=== PATIENT | male | born 1960 | race Caucasian/White ===

== ENCOUNTER → 2019-07-08 10:16 | Outpatient (CLI) | payer BC, SELFPAY ==
[2019-07-08 10:39] LABS: Basophils # 0.1 K/mm3 (0-0.2); Basophils % 1.1 % (0.1-2.0); Eosinophils # 0.3 K/mm3 (0.0-0.4); Hematocrit 46.3 % (42.0-52.0); Hemoglobin 15.2 g/dL (14.1-18.0); Lymphocytes # 1.3 K/mm3 (0.7-4.5); Lymphocytes % 27.6 % (10-50); Mean Corpuscular HGB Conc 32.8 g/dL (31.8-35.4); Mean Corpuscular Hemoglobin 31.1 pg (27.0-31.2); Mean Corpuscular Volume 94.6 fl (80-94); Mean Platelet Volume 8.7 fl (7.4-10.4); Monocytes # 0.4 K/mm3 (0.1-1.0); Monocytes % 8.4 % (1.7-9.3); Neutrophils # 2.6 K/mm3 (1.8-7.8); Neutrophils % 56.8 % (37.0-80.0); Platelet Count 153 K/mm3 (142-424); Red Blood Count 4.89 M/mm3 (4.60-6.20); Red Cell Distribution Width 13.1 % (11.5-17.5); White Blood Count 4.6 K/mm3 (4.8-10.8)
[2019-07-08 11:57] LABS: Anion Gap 11.8 mEq/L (5-15); Blood Urea Nitrogen 11 mg/dL (7-18); Calcium 8.9 mg/dL (8.5-10.1); Carbon Dioxide 27 mmol/L (21.0-32.0); Chloride 104 mmol/L (98-107); Creatinine,Serum 0.96 mg/dL (0.70-1.30); Estimated Glomerular Filt Rate 80 ml/min (>60); GFR (African American) 97 ML/MIN (>60); Glucose 97 mg/dL (74-106); Potassium 3.8 mmoL/L (3.5-5.1); Sodium 139 mmol/L (136-145)
== END ==
PROVIDERS: Visit Provider Surgery
DX: K42.9 Umbilical hernia without obstruction or gangrene (principal)
CPT/HCPCS: 36415; 80048; 85025

== ENCOUNTER → 2020-04-17 09:24 | Outpatient (CLI) | payer BC, SELFPAY ==
--- NOTE | 2020-04-17 09:32 | US_ITS ---
PROCEDURE: US TESTICULAR CLINICAL INDICATION: LT SCROTAL SWELLING Left testicular swelling COMPARISON: No exams were available for comparison FINDINGS: The right testicle has an unremarkable appearance measuring 5 x 2.5 x 3.2 cm. Blood flow is present. No obvious mass. There is a 2.8 x 1 cm cystic area in the superior to the upper pole of the right testicle consistent with a spermatocele.. A small cystic areas present in the lower pole of the testicle on the right. This measures 1 x 0.3 cm consistent with a cyst with a small internal septation The left testicle is 4.7 x 2.4 x 3.1 cm. Blood flow is present. Left-sided varicocele. IMPRESSION: 1. Right-sided spermatocele at 2.8 by 1 cm 2. Small septated right testicular cyst. Recommend follow-up to confirm stability in 3 months. 3. Left varicocele Dictated by: Donaldo Paris MD 04/17/2020 16:11 Donaldo Paris MD in [place] 04/17/2020 16:11
== END ==
PROVIDERS: PCP Internal Medicine; Visit Provider Internal Medicine
DX: N49.2 Inflammatory disorders of scrotum (principal)
CPT/HCPCS: 76870

== ENCOUNTER → 2020-07-08 07:44 | Outpatient (CLI) | payer BC, SELFPAY ==
--- NOTE | 2020-07-08 07:47 | CA_ITS ---
APPROVED REPORT EXAM: Comprehensive 2D, Doppler, and color-flow Echocardiogram Jewel Gauger: Sherry Blanco RVT Ht: 5 ft 11 in Wt: 224lbs BSA: 2.21 BP: 158/80 mmHg Indications: CAD,BRADYCARDIA,COPD,MURMUR,SMOKER,JANKI,GERD,HTN,HLD 2D Dimensions LVOT 1.85 cm (M/F) 1.5-2.5 M-Mode Dimensions RVDd 3.48 cm (0.9-2.6) LA Diam 4.74 cm (1.9-4.0) LVDd 5.11 cm (3.5-5.7) Ao Diam 3.04 cm (2.0-3.7) LVDs 4.32 cm (3.5-5.7) IVSd 0.92 cm (0.6-1.1) PWd 1.42 cm (0.6-1.1) EF (Teich) 32.50% FS 15.50% EDV (Teich) 124.40 mL ESV (Teich) 84.00 mL LV Diastology E Decel Time 313.00 (160-240 msec) E/A Ratio 0.7 MED E' 4.10 (< 7 cm/sec) E'/MED E' Ratio 18.10 (>14) LAT E' 6.20 (<10 cm/sec) E/LAT E' Ratio 11.97 (>14) Aortic Valve AO VTI 46.24 (18-25 cm) Mitral Valve MV E Max Vinicio. 74.00 (40-130 cm/s) MV A Velocity 113.00 (40-130 cm/s) E/A Ratio 0.66 MV Decel. Time 313.00 (160-240 ms) MV PHT 92.00 ms Pulmonary Valve PV Peak Velocity 93.00 (50-150 cm/s) Tricuspid Valve TR P. Velocity 265.00 cm/s RAP Estimate 10.00 mmHg RVSP 38.10 mmHg Left Ventricle Left atrium is mildly enlarged, left ventricle is normal size, mild concentric left ventricular hypertrophy, visually estimated ejection fraction 50%, there is marked hypokinesis involving the basal septum, and inferior basal wall. Grade 1 diastolic dysfunction seen with tissue Doppler evidence of raise left atrial pressure. Right Ventricle Right atrium and right ventricle are mildly enlarged with normal contractility. Aortic Valve Aortic valve is minimally thickened and calcified, leaflet continue to display mobility, there is no aortic stenosis or aortic insufficiency. Mitral Valve Mitral valve is grossly normal, there is mild mitral regurgitation. Tricuspid Valve Tricuspid valve is grossly normal, there is mild tricuspid regurgitation, tricuspid regurgitation jet velocity is inadequate for calculation of the right ventricular systolic pressure. Pulmonic Valve Pulmonic valve is poorly visualized. Great Vessels Aortic root is normal size. Pericardium No significant pericardial effusion noted. Conclusion 1. Mild biatrial enlargement, normal left ventricular size, mild concentric left ventricular hypertrophy, visually estimated ejection fraction 50% with segmental wall motion abnormality described above, grade 1 diastolic dysfunction seen with tissue Doppler evidence of raise left atrial pressure. 2. Mildly enlarged right ventricle with normal contractility. 3. Mild mitral and tricuspid regurgitation. 4. No significant pericardial effusion noted. Electronically signed by : Gray Jones, 07/09/2020 13:56:34
== END ==
PROVIDERS: PCP Internal Medicine; Visit Provider Urology
DX: I25.10 Atherosclerotic heart disease of native coronary artery without angina pectoris (principal); G35 Multiple sclerosis; I50.32 Chronic diastolic (congestive) heart failure; I11.0 Hypertensive heart disease with heart failure; E78.2 Mixed hyperlipidemia; F17.200 Nicotine dependence, unspecified, uncomplicated; Z95.5 Presence of coronary angioplasty implant and graft
CPT/HCPCS: 93306

== ENCOUNTER → 2021-01-18 07:46 | Outpatient (CLI) | payer BC, SELFPAY ==
--- NOTE | 2021-01-18 07:49 | CA_ITS ---
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 Indications: HTN, Known congenital single left kidney, MS Renal Artery Doppler Renal Aorta Ratio (R) 0.00 Origin (L) 217.0/ cm/sec Proximal (L) 338.0/ cm/sec Mid (L) 382.0/ cm/sec Distal (L) 438.2/ cm/sec Renal Aorta Ratio (L) 4.01 Segmental A. (L) / cm/sec RI: 0.66 Segmental A. Sup (L) 26.0/8.0 cm/sec Segmental A. Mid (L) 22.0/8.0 cm/sec Segmental A. 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 Hemodynamically significant stenosis of the left renal artery. Based on the renal aortic ratio there is evidence of a greater than 60% stenosis in the mid to distal left renal artery. Conclusion Hemodynamically significant stenosis of the left renal artery. Based on the renal aortic ratio there is evidence of a greater than 60% stenosis in the mid to distal left renal artery. 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 Suggest CTA of left renal artery Electronically signed by : Donaldo Paris MD 01/18/2021 17:44:43
== END ==
PROVIDERS: PCP Internal Medicine; Visit Provider Physician Assistant
DX: I25.10 Atherosclerotic heart disease of native coronary artery without angina pectoris (principal); I11.9 Hypertensive heart disease without heart failure; R00.1 Bradycardia, unspecified; G35 Multiple sclerosis; E78.2 Mixed hyperlipidemia; F17.200 Nicotine dependence, unspecified, uncomplicated; Z95.5 Presence of coronary angioplasty implant and graft
CPT/HCPCS: 93976

== ENCOUNTER → 2021-02-12 09:27 | Outpatient (CLI) | payer BC, SELFPAY ==
[2021-02-12 10:08] LABS: Basophils # 0.1 K/mm3 (0-0.2); Basophils % 1.1 % (0.1-2.0); Eosinophils # 0.2 K/mm3 (0.0-0.4); Eosinophils % 4.5 % (0.1-12.0); Hematocrit 48.1 % (42.0-52.0); Lymphocytes # 1.2 K/mm3 (0.7-4.5); Lymphocytes % 25.6 % (10-50); Mean Corpuscular HGB Conc 33.2 g/dL (31.8-35.4); Mean Corpuscular Hemoglobin 30.8 pg (27.0-31.2); Mean Corpuscular Volume 92.7 fl (80-94); Mean Platelet Volume 9.2 fl (7.4-10.4); Monocytes # 0.5 K/mm3 (0.1-1.0); Neutrophils # 2.7 K/mm3 (1.8-7.8); Neutrophils % 58.7 % (37.0-80.0); Platelet Count 156 K/mm3 (142-424); Red Blood Count 5.18 M/mm3 (4.60-6.20); Red Cell Distribution Width 13.9 % (11.5-17.5); White Blood Count 4.6 K/mm3 (4.8-10.8)
[2021-02-12 11:16] LABS: Alanine Aminotransferase 30 U/L (12-78); Albumin Level 4.1 g/dl (3.5-5.0); Alkaline Phosphatase 102 U/L (38-126); Anion Gap 13.4 mEq/L (5-15); Aspartate Amino Transferase 26 U/L (17-59); Bilirubin,Direct 0.4 mg/dl (0.0-0.4); Bilirubin,Total 0.4 mg/dl (0.2-1.3); Blood Urea Nitrogen 17 mg/dl (9-20); Calcium 9.1 mg/dl (8.4-10.2); Carbon Dioxide 24 mmol/L (22.0-30.0); Chloride 107 mmol/L (98-107); Chol/HDL Ratio 3.5 (1-3.5); Cholesterol 140 mg/dl (140-200); Estimated Glomerular Filt Rate 115 ml/min (>60); GFR (African American) 140 ML/MIN (>60); Glucose 96 mg/dl (74-100); HDL Cholesterol 40 mg/dl (40-60); Potassium 4.4 mmoL/L (3.5-5.1); Sodium 140 mmol/L (136-145); Total Protein,Serum 6.5 g/dl (6.3-8.2); Triglycerides 139 mg/dl (30-150); VLDL Cholesterol 28 mg/dL (0-40)
[2021-02-12 11:27] LABS: Direct LDL Cholesterol 77.19 mg/dL (100-129)
[2021-02-12 11:31] LABS: Free T4 (Free Thyroxine) 0.87 ng/dl (0.78-2.19)
[2021-02-12 11:46] LABS: Thyroid Stimulating Hormone 1.03 uIU/mL (0.465-4.68)
== END ==
PROVIDERS: Visit Provider Nurse Practitioner Family
DX: Z01.812 Encounter for preprocedural laboratory examination (principal); Z20.822 Contact with and (suspected) exposure to COVID-19; I25.10 Atherosclerotic heart disease of native coronary artery without angina pectoris; R00.1 Bradycardia, unspecified; I11.9 Hypertensive heart disease without heart failure; G35 Multiple sclerosis; E78.5 Hyperlipidemia, unspecified; F17.200 Nicotine dependence, unspecified, uncomplicated; Z95.5 Presence of coronary angioplasty implant and graft
CPT/HCPCS: 36415; 80048; 80061; 80076; 84439; 84443; 85025; U0003

== ENCOUNTER 2021-02-15 08:14 | Day surgery (SDC) | payer BC, SELFPAY ==
[2021-02-15] VITALS (18 sets, daily range): BP systolic 140–180; BP diastolic 70–96; PULSE 52–97; RESP 18–20; TEMP 36.6; O2SAT 94–100; BMI 30.5
--- NOTE | 2021-02-15 07:10 | IR_ITS ---
APPROVED REPORT Patient Location: Outpatient Food Manager: CARMEN Parrish RT (R) PROCEDURES Catheter placement in the left renal artery with left renal artery selective angiogram INDICATION Abnormal renal duplex, Renal artery stenosis Informed consent was obtained prior to the procedure. COMPLICATIONS NONE Estimated Blood Loss: LESS THAN 10 ML TECHNIQUE 1% lidocaine used to anesthetize the right femoral groin. The right femoral artery was accessed via the Seldinger technique. A 4 Malian sheath was placed in the right femoral artery. The JR4 catheter was used to intubate the 2 arteries supplying the left kidney. After performing diagnostic angiography the patient was transferred to the postop putting in stable condition for sheath removal ANGIOGRAPHIC RESULTS The left kidney has a dual arterial supply. Both renal arteries are large caliber widely patent and free of stenosis IMPRESSION Normal left renal arterial supply with no evidence of stenosis PLAN 1. Evaluation of nonrenovascular hypertension Electronically signed by : Gopal Ashley MD 02/15/2021 10:35:05
== END 2021-02-15 13:56 | disposition home or self-care (01) ==
LOC: CATHLAB 08:14
PROVIDERS: PCP Internal Medicine; Visit Provider Internal Medicine
DX: I25.10 Atherosclerotic heart disease of native coronary artery without angina pectoris (principal); I11.9 Hypertensive heart disease without heart failure; E78.2 Mixed hyperlipidemia; F17.210 Nicotine dependence, cigarettes, uncomplicated; I70.1 Atherosclerosis of renal artery; Z95.5 Presence of coronary angioplasty implant and graft; Z79.899 Other long term (current) drug therapy; Q60.0 Renal agenesis, unilateral; Z79.01 Long term (current) use of anticoagulants; J44.9 Chronic obstructive pulmonary disease, unspecified
CPT/HCPCS: 36251; 99152; C1725; C1769; J1644; Q9967

== ENCOUNTER 2021-03-05 13:14 | Emergency (ER) | payer BC, SELFPAY ==
[2021-03-05 13:49] VITALS: BP 146/77; PULSE 85; RESP 19; TEMP 36.9; O2SAT 98; BMI 31.5
[2021-03-05 14:29] VITALS: BP 146/77; PULSE 85; RESP 18; TEMP 36.9
--- NOTE | 2021-03-05 14:56 | HMH.EDUTC ---
[facility] Disposition Clinical Impression: Viral syndrome, Exposure to COVID-19 virus Disposition: Home, Self-Care Condition on Discharge: Good Instructions: DI for Viral Syndrome, DI for COVID-19 (Suspected or Confirmed ), Preventing the Spread of Coronavirus Discharge Instructions Additional Instructions: Drink plenty of fluids. Take tylenol or ibuprofen for pain or fever. Take the medications as directed. Follow up with your regular doctor. GO TO THE ER FOR ANY WORSENING SYMPTOMS Quarantine until you know the results of your covid-19 test. If it is positive, the health department should call you and give you further instructions about your length of Quarantine and other things. Notify your school or workplace of your results and follow their instructions regarding return to work/school. Prescriptions: Benzonatate [Tessalon Perle 100mg Cap] 100 mg PO TIDP PRN #30 cap PRN Reason: Cough Transmission Status: Received by [id number] Ondansetron [Zofran 4mg ODT] 4 mg PO DAILYP PRN #12 tab PRN Reason: Nausea Transmission Status: Received by [facility] Referrals: Neil Lai [Primary Care Provider] - Time of Disposition: 15:00 Medical Decision Making - Medical Records Medical records reviewed: No: I reviewed the patient's medical records. - Anthony Inquiry Pt receiving controlled substance: No Vital Signs: 03/05/21 13:49 03/05/21 14:29 Temperature 98.4 F 98.4 F Temperature Source Oral Pulse Rate 85 Pulse Rate [Left] 85 Respiratory Rate 19 18 Blood Pressure 146/77 H Blood Pressure [Right Arm] 146/77 H Blood Pressure Mean [Right Arm] 100 02 Sat by Pulse Oximetry 98 [facility] HPI - General Stated complaint: covid symptoms Time Seen by Provider: 03/05/21 14:56 Mode of Arrival: Ambulatory Source of Information: Patient Limitations: No Limitations Description of Symptoms (Recalled from Triage Doc. by RN): pt c/o body aches, fever hx, runny nose, wekness in his legs and a cough. HEENT Symptoms (Recalled from RN notes): Yes (runny nose) Resp Symptoms (Recalled from RN notes): Yes (cough) Skin Symptoms (Recalled from RN notes): No MS Symptoms (Recalled from RN notes): No Functional Status (Recalled from RN notes): weakness - History of Present Illness Provider Complaint: He states that he has felt bad and been very tired for the past 2 days. He has a scratchy sore throat, a dry cough, and he has had some nausea. He has been vaccinated against covid-19. He has been exposed to covid-19 one day last week. - Related Data Home Medications Medication Instructions Recorded Confirmed dimethyl fumarate 240 mg 240 mg PO BID 07/27/17 02/23/21 capsule,delayed release [id number] intramuscular 1 each IM DAILY 07/27/17 02/23/21 solifenacin 10 mg tablet 10 mg PO ONCE 07/27/17 02/23/21 vitamin B complex 1 tab PO ONCE 07/31/17 02/23/21 aspirin 81 mg tablet,delayed 81 mg PO DAILY tab 01/29/18 02/23/21 release cholecalciferol (vitamin D3) 25 1,000 unit PO DAILY cap 01/29/18 02/23/21 mcg (1,000 unit) capsule diphenhydramine HCl 25 mg capsule 25 mg PO QHS 01/29/18 02/23/21 methylphenidate HCl 10 mg tablet 10 mg PO BID 01/21/19 02/23/21 modafinil 200 mg tablet 200 mg PO BID tab 07/06/20 02/23/21 potassium chloride 20 mEq oral 20 meq PO BID packet 07/06/20 02/23/21 packet omeprazole 40 mg capsule,delayed 40 mg PO DAILY cap 01/11/21 02/23/21 release tamsulosin 0.4 mg capsule 0.4 mg PO BID cap 01/11/21 02/23/21 Amlodipine Besylate [Amlodipine 10 mg PO DAILY 02/15/21 02/23/21 10mg Tab] Losartan Potassium [Cozaar 100mg 100 mg PO DAILY 02/15/21 02/23/21 Tablets] hydroCHLOROthiazide [HCTZ 25mg See Rx Instructions .ROUTE .COMPLEX 02/15/21 02/23/21 tab] Previous Rx's Medication Instructions Recorded nitroglycerin 0.4 mg sublingual 0.4 mg SUBLINGUAL Q5M PRN #25 tab 01/21/19 tablet clopidogrel 75 mg tablet 75 mg PO DAILY #90 tab
--- NOTE | 2021-03-06 10:11 | PC.NURSE ---
informed patient that he was positive
== END 2021-03-05 15:14 | disposition home or self-care (01) ==
PROVIDERS: Emergency Provider Nurse Practitioner Family; PCP Internal Medicine
DX: U07.1 COVID-19 (principal); B34.9 Viral infection, unspecified; J44.9 Chronic obstructive pulmonary disease, unspecified; K21.9 Gastro-esophageal reflux disease without esophagitis; E78.5 Hyperlipidemia, unspecified; I10 Essential (primary) hypertension; F17.210 Nicotine dependence, cigarettes, uncomplicated; Z79.899 Other long term (current) drug therapy
CPT/HCPCS: 99202; C9803; G0463; U0003; U0005

== ENCOUNTER → 2021-03-09 14:14 | Outpatient (CLI) | payer BC, SELFPAY ==
[2021-03-09] VITALS (7 sets, daily range): BP systolic 118–173; BP diastolic 61–70; PULSE 56–64; RESP 18; TEMP 36.4–37.3; O2SAT 96–98
== END ==
PROVIDERS: PCP Internal Medicine; Visit Provider Internal Medicine
DX: U07.1 COVID-19 (principal)
CPT/HCPCS: 96365

== ENCOUNTER → 2021-07-05 12:36 | Outpatient (CLI) | payer BC, SELFPAY ==
[2021-07-05 12:54] LABS: Basophils # 0.1 K/mm3 (0-0.2); Basophils % 1.9 % (0.1-2.0); Eosinophils # 0.2 K/mm3 (0.0-0.4); Eosinophils % 3.6 % (0.1-12.0); Hematocrit 48.7 % (42.0-52.0); Hemoglobin 16.2 g/dL (14.1-18.0); Lymphocytes # 1.3 K/mm3 (0.7-4.5); Lymphocytes % 30.5 % (10-50); Mean Corpuscular HGB Conc 33.1 g/dL (31.8-35.4); Mean Corpuscular Hemoglobin 31.9 pg (27.0-31.2); Mean Corpuscular Volume 96.2 fl (80-94); Mean Platelet Volume 9.5 fl (7.4-10.4); Monocytes # 0.4 K/mm3 (0.1-1.0); Monocytes % 8.6 % (1.7-9.3); Neutrophils # 2.3 K/mm3 (1.8-7.8); Neutrophils % 55.3 % (37.0-80.0); Platelet Count 178 K/mm3 (142-424); Red Blood Count 5.07 M/mm3 (4.60-6.20); Red Cell Distribution Width 13.2 % (11.5-17.5); White Blood Count 4.2 K/mm3 (4.8-10.8)
[2021-07-05 13:42] LABS: Chloride 106 mmol/L (98-107)
[2021-07-05 13:43] LABS: Potassium 4.1 mmoL/L (3.5-5.1); Sodium 139 mmol/L (136-145)
[2021-07-05 13:45] LABS: Alanine Aminotransferase 27 U/L (12-78); Albumin Level 4.2 g/dl (3.5-5.0); Albumin/Globulin Ratio 1.7 (1.1-1.8); Alkaline Phosphatase 91 U/L (38-126); Anion Gap 11.1 mEq/L (5-15); Aspartate Amino Transferase 27 U/L (17-59); Bilirubin,Total 0.4 mg/dl (0.2-1.3); Blood Urea Nitrogen 12 mg/dl (9-20); Carbon Dioxide 26 mmol/L (22.0-30.0); Estimated Glomerular Filt Rate 86 ml/min (>60); GFR (African American) 104 ML/MIN (>60); Globulin 2.5 g/dL (1.3-3.2); Total Protein,Serum 6.7 g/dl (6.3-8.2)
[2021-07-05 13:46] LABS: Calcium 9.3 mg/dl (8.4-10.2); Chol/HDL Ratio 3.3 (1-3.5); Cholesterol 126 mg/dl (140-200); Glucose 92 mg/dl (74-100); HDL Cholesterol 38 mg/dl (40-60); Triglycerides 85 mg/dl (30-150); VLDL Cholesterol 17 mg/dL (0-40)
[2021-07-05 13:57] LABS: Direct LDL Cholesterol 72.48 mg/dL (100-129)
== END ==
PROVIDERS: Visit Provider Internal Medicine
DX: I10 Essential (primary) hypertension (principal); E78.5 Hyperlipidemia, unspecified; E53.8 Deficiency of other specified B group vitamins; G35 Multiple sclerosis
CPT/HCPCS: 80053; 80061; 85025

== ENCOUNTER → 2022-01-04 11:39 | Outpatient (CLI) | payer BC, SELFPAY ==
[2022-01-04 14:09] LABS: Basophils # 0.1 K/mm3 (0-0.2); Basophils % 1.9 % (0.1-2.0); Eosinophils # 0.2 K/mm3 (0.0-0.4); Eosinophils % 2.4 % (0.1-12.0); Hematocrit 45.9 % (42.0-52.0); Hemoglobin 14.8 g/dL (14.1-18.0); Lymphocytes # 1.1 K/mm3 (0.7-4.5); Lymphocytes % 16.5 % (10-50); Mean Corpuscular HGB Conc 32.3 g/dL (31.8-35.4); Mean Corpuscular Hemoglobin 31.3 pg (27.0-31.2); Mean Corpuscular Volume 96.9 fl (80-94); Mean Platelet Volume 9.9 fl (7.4-10.4); Monocytes # 0.5 K/mm3 (0.1-1.0); Neutrophils # 4.7 K/mm3 (1.8-7.8); Neutrophils % 71.3 % (37.0-80.0); Platelet Count 168 K/mm3 (142-424); Red Blood Count 4.74 M/mm3 (4.60-6.20); Red Cell Distribution Width 13.7 % (11.5-17.5); White Blood Count 6.6 K/mm3 (4.8-10.8)
[2022-01-04 14:34] LABS: Alanine Aminotransferase 23 U/L (12-78); Albumin Level 3.6 g/dl (3.5-5.0); Albumin/Globulin Ratio 1.5 (1.1-1.8); Alkaline Phosphatase 107 U/L (38-126); Aspartate Amino Transferase 21 U/L (17-59); Blood Urea Nitrogen 16 mg/dl (9-20); Carbon Dioxide 24 mmol/L (22.0-30.0); Chloride 108 mmol/L (98-107); Chol/HDL Ratio 3.3 (1-3.5); Cholesterol 110 mg/dl (140-200); Estimated Glomerular Filt Rate 99 ml/min (>60); GFR (African American) 119 ML/MIN (>60); Globulin 2.4 g/dL (1.3-3.2); Glucose 104 mg/dl (74-100); HDL Cholesterol 33 mg/dl (40-60); Sodium 139 mmol/L (136-145); Triglycerides 84 mg/dl (30-150); VLDL Cholesterol 17 mg/dL (0-40)
[2022-01-04 14:37] LABS: Bilirubin,Total < 0.1 mg/dl (0.2-1.3)
[2022-01-04 14:45] LABS: Direct LDL Cholesterol 65.66 mg/dL (100-129)
[2022-01-04 14:50] LABS: 25-OH Vitamin D, Total 58.1 ng/mL (30-100)
[2022-01-04 15:02] LABS: Prostate Specific Ag Screen 0.5 ng/ml (0.0-4.0)
[2022-01-04 15:25] LABS: Vitamin B12 > 1000 pg/mL (239-931)
== END ==
PROVIDERS: PCP Internal Medicine; Visit Provider Internal Medicine
DX: I10 Essential (primary) hypertension (principal); I25.2 Old myocardial infarction; E78.5 Hyperlipidemia, unspecified; D69.6 Thrombocytopenia, unspecified; G35 Multiple sclerosis; B35.1 Tinea unguium; Z12.5 Encounter for screening for malignant neoplasm of prostate
CPT/HCPCS: 80053; 80061; 82306; 82607; 85025; G0103

== ENCOUNTER → 2022-07-08 12:39 | Outpatient (CLI) | payer BC, SELFPAY ==
[2022-07-08 15:02] LABS: Basophils # 0.1 K/mm3 (0-0.2); Basophils % 1.3 % (0.1-2.0); Eosinophils # 0.2 K/mm3 (0.0-0.4); Eosinophils % 4.3 % (0.1-12.0); Hematocrit 46.3 % (42.0-52.0); Hemoglobin 15.6 g/dL (14.1-18.0); Lymphocytes # 1.4 K/mm3 (0.7-4.5); Lymphocytes % 30.2 % (10-50); Mean Corpuscular HGB Conc 33.7 g/dL (31.8-35.4); Mean Corpuscular Hemoglobin 31.1 pg (27.0-31.2); Mean Corpuscular Volume 92.5 fl (80-94); Mean Platelet Volume 10.1 fl (7.4-10.4); Monocytes # 0.4 K/mm3 (0.1-1.0); Monocytes % 9.2 % (1.7-9.3); Neutrophils # 2.6 K/mm3 (1.8-7.8); Platelet Count 198 K/mm3 (142-424); Red Blood Count 5.01 M/mm3 (4.60-6.20); Red Cell Distribution Width 13.3 % (11.5-17.5); White Blood Count 4.8 K/mm3 (4.8-10.8)
[2022-07-08 15:21] LABS: Alanine Aminotransferase 25 U/L (12-78); Albumin Level 4.1 g/dl (3.5-5.0); Albumin/Globulin Ratio 1.6 (1.1-1.8); Alkaline Phosphatase 100 U/L (38-126); Anion Gap 12.2 mEq/L (5-15); Aspartate Amino Transferase 26 U/L (17-59); Bilirubin,Total 0.3 mg/dl (0.2-1.3); Blood Urea Nitrogen 22 mg/dl (9-20); Calcium 9.4 mg/dl (8.4-10.2); Carbon Dioxide 25 mmol/L (22.0-30.0); Chloride 107 mmol/L (98-107); Estimated Glomerular Filt Rate 76 ml/min (>60); GFR (African American) 92 ML/MIN (>60); Globulin 2.5 g/dL (1.3-3.2); Glucose 87 mg/dl (74-100); HDL Cholesterol 34 mg/dl (40-60); Potassium 4.2 mmoL/L (3.5-5.1); Sodium 140 mmol/L (136-145); Total Protein,Serum 6.6 g/dl (6.3-8.2)
[2022-07-08 15:23] LABS: Chol/HDL Ratio 3.5 (1-3.5); Cholesterol 120 mg/dl (140-200); Triglycerides 137 mg/dl (30-150); VLDL Cholesterol 27 mg/dL (0-40)
[2022-07-08 15:32] LABS: Direct LDL Cholesterol 66.28 mg/dL (100-129)
[2022-07-08 16:15] LABS: Vitamin B12 > 1000 pg/mL (239-931)
== END ==
PROVIDERS: PCP Internal Medicine; Visit Provider Internal Medicine
DX: I25.10 Atherosclerotic heart disease of native coronary artery without angina pectoris (principal); I25.2 Old myocardial infarction; I10 Essential (primary) hypertension; E78.5 Hyperlipidemia, unspecified; E53.8 Deficiency of other specified B group vitamins; D69.6 Thrombocytopenia, unspecified; G35 Multiple sclerosis
CPT/HCPCS: 80053; 80061; 82607; 85025

== ENCOUNTER → 2023-01-06 13:15 | Outpatient (CLI) | payer BC, SELFPAY ==
[2023-01-06 14:19] LABS: Basophils % 0.8 % (0.1-2.0); Eosinophils # 0.1 K/mm3 (0.0-0.4); Hematocrit 46.5 % (42.0-52.0); Hemoglobin 15.1 g/dL (14.1-18.0); Lymphocytes % 22.1 % (10-50); Mean Corpuscular HGB Conc 32.5 g/dL (31.8-35.4); Mean Corpuscular Hemoglobin 30.1 pg (27.0-31.2); Mean Corpuscular Volume 92.6 fl (80-94); Mean Platelet Volume 9.9 fl (7.4-10.4); Monocytes # 0.4 K/mm3 (0.1-1.0); Monocytes % 8.5 % (1.7-9.3); Neutrophils # 3.1 K/mm3 (1.8-7.8); Neutrophils % 65.6 % (37.0-80.0); Platelet Count 174 K/mm3 (142-424); Red Blood Count 5.02 M/mm3 (4.60-6.20); Red Cell Distribution Width 13.6 % (11.5-17.5); White Blood Count 4.7 K/mm3 (4.8-10.8)
[2023-01-06 14:45] LABS: Alanine Aminotransferase 29 U/L (12-78); Albumin Level 4.1 g/dl (3.5-5.0); Albumin/Globulin Ratio 1.8 (1.1-1.8); Alkaline Phosphatase 86 U/L (38-126); Anion Gap 11.7 mEq/L (5-15); Aspartate Amino Transferase 27 U/L (17-59); Bilirubin,Total 0.4 mg/dl (0.2-1.3); Blood Urea Nitrogen 16 mg/dl (9-20); Calcium 9.2 mg/dl (8.4-10.2); Carbon Dioxide 24 mmol/L (22.0-30.0); Chloride 108 mmol/L (98-107); Chol/HDL Ratio 2.8 (1-3.5); Cholesterol 111 mg/dl (140-200); Estimated Glomerular Filt Rate 98 ml/min (>60); GFR (African American) 119 ML/MIN (>60); Globulin 2.3 g/dL (1.3-3.2); Glucose 85 mg/dl (74-100); HDL Cholesterol 39 mg/dl (40-60); Potassium 4.7 mmoL/L (3.5-5.1); Sodium 139 mmol/L (136-145); Total Protein,Serum 6.4 g/dl (6.3-8.2); Triglycerides 88 mg/dl (30-150); VLDL Cholesterol 18 mg/dL (0-40)
[2023-01-06 14:56] LABS: Direct LDL Cholesterol 58.82 mg/dL (100-129)
[2023-01-06 15:15] LABS: Prostate Specific Ag Screen 0.5 ng/ml (0.0-4.0)
[2023-01-06 15:35] LABS: Vitamin B12 981 pg/mL (239-931)
== END ==
PROVIDERS: PCP Internal Medicine; Visit Provider Internal Medicine
DX: I25.10 Atherosclerotic heart disease of native coronary artery without angina pectoris (principal); I25.2 Old myocardial infarction; I10 Essential (primary) hypertension; E78.5 Hyperlipidemia, unspecified; E53.8 Deficiency of other specified B group vitamins; Z12.5 Encounter for screening for malignant neoplasm of prostate
CPT/HCPCS: 80053; 80061; 82607; 85025; G0103

== ENCOUNTER 2023-07-17 12:29 | Outpatient (CLI) | payer BC, SELFPAY ==
[2023-07-17 14:51] LABS: Basophils % 0.8 % (0.1-2.0); Eosinophils # 0.2 K/mm3 (0.0-0.4); Eosinophils % 3.1 % (0.1-12.0); Hematocrit 46.6 % (42.0-52.0); Hemoglobin 15.9 g/dL (14.1-18.0); Lymphocytes # 1.2 K/mm3 (0.7-4.5); Lymphocytes % 22.6 % (10-50); Mean Corpuscular Hemoglobin 31.9 pg (27.0-31.2); Mean Corpuscular Volume 93.9 fl (80-94); Mean Platelet Volume 10.3 fl (7.4-10.4); Monocytes # 0.4 K/mm3 (0.1-1.0); Monocytes % 7.9 % (1.7-9.3); Neutrophils # 3.6 K/mm3 (1.8-7.8); Neutrophils % 65.7 % (37.0-80.0); Platelet Count 173 K/mm3 (142-424); Red Blood Count 4.97 M/mm3 (4.60-6.20); Red Cell Distribution Width 13.7 % (11.5-17.5); White Blood Count 5.5 K/mm3 (4.8-10.8)
[2023-07-17 16:25] LABS: Alanine Aminotransferase 26 U/L (12-78); Albumin Level 4.1 g/dl (3.5-5.0); Albumin/Globulin Ratio 1.6 (1.1-1.8); Alkaline Phosphatase 92 U/L (38-126); Aspartate Amino Transferase 23 U/L (17-59); Bilirubin,Total 0.5 mg/dl (0.2-1.3); Blood Urea Nitrogen 12 mg/dl (9-20); Calcium 8.9 mg/dl (8.4-10.2); Carbon Dioxide 27 mmol/L (22.0-30.0); Chloride 106 mmol/L (98-107); Chol/HDL Ratio 3.8 (1-3.5); Cholesterol 123 mg/dl (140-200); Estimated Glomerular Filt Rate 86 ml/min (>60); GFR (African American) 103 ML/MIN (>60); Globulin 2.5 g/dL (1.3-3.2); Glucose 88 mg/dl (74-100); HDL Cholesterol 32 mg/dl (40-60); Sodium 141 mmol/L (136-145); Total Protein,Serum 6.6 g/dl (6.3-8.2); Triglycerides 82 mg/dl (30-150); VLDL Cholesterol 16 mg/dL (0-40)
[2023-07-17 16:41] LABS: Direct LDL Cholesterol 78.43 mg/dL (100-129)
[2023-07-17 22:55] LABS: Vitamin B12 998 pg/mL (239-931)
== END 2023-07-17 23:59 ==
LOC: LAB.DROPOF 12:30
PROVIDERS: PCP Internal Medicine; Visit Provider Internal Medicine
DX: I25.10 Atherosclerotic heart disease of native coronary artery without angina pectoris (principal); I25.2 Old myocardial infarction; I10 Essential (primary) hypertension; E78.5 Hyperlipidemia, unspecified; E53.8 Deficiency of other specified B group vitamins; D69.6 Thrombocytopenia, unspecified; K21.9 Gastro-esophageal reflux disease without esophagitis; G35 Multiple sclerosis
CPT/HCPCS: 80053; 80061; 82607; 85025

== ENCOUNTER 2023-09-11 17:04 | Emergency (ER) | payer BC, SELFPAY ==
[2023-09-11 17:45] VITALS: BP 134/74; PULSE 70; RESP 18; TEMP 36.6; O2SAT 98; BMI 32.3
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
[2023-09-11 19:05] VITALS: BP 134/74; PULSE 70; RESP 18; TEMP 36.6; O2SAT 98
== END 2023-09-11 19:05 | disposition home or self-care (01) ==
PROVIDERS: Emergency Provider Nurse Practitioner Family; PCP Internal Medicine
DX: S20.212A Contusion of left front wall of thorax, initial encounter (principal); W55.22XA Struck by cow, initial encounter; F17.210 Nicotine dependence, cigarettes, uncomplicated
CPT/HCPCS: 71101; 99212; 99214; G0463

== ENCOUNTER 2023-09-13 11:16 | Outpatient (CLI) | payer BC, SELFPAY ==
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
--- NOTE | 2023-09-13 12:03 | ECG_ITS ---
APPROVED REPORT Exam: Resting ECG HR:79 bpm ECG Measurements Heart Rate 79 AXES WY 139 P 57 QRSd 146 QRS 219 QT 397 T -8 QTc 432 Conclusion SINUS RHYTHM RIGHT BUNDLE BRANCH BLOCK [120+ ms QRS DURATION, UPRIGHT V1, 40+ ms S IN I/aVL/V4/V5/V6] LEFT POSTERIOR FASCICULAR BLOCK [QRS AXIS > 109, INFERIOR Q] ABNORMAL ECG UNCONFIRMED REPORT Electronically signed by : Frank Michael MD 09/13/2023 21:09:58
[2023-09-13 12:06] LABS: Creatine Kinase 50 U/L (55-170)
[2023-09-13 12:19] LABS: CKMB Relative Index 1.4 U/L (0-4.0); Creatine Kinase MB 0.7 ng/ml (0.0-2.03)
[2023-09-13 12:26] LABS: Troponin I < 0.01 ng/ml (0.00-0.034)
== END 2023-09-13 23:59 ==
LOC: RAD 11:17
PROVIDERS: PCP Internal Medicine; Visit Provider Internal Medicine
DX: R07.89 Other chest pain (principal); R74.8 Abnormal levels of other serum enzymes; W55.22XA Struck by cow, initial encounter
CPT/HCPCS: 36415; 71046; 82550; 82553; 84484; 93005

== ENCOUNTER 2023-09-24 21:04 | Emergency (ER) | payer BC, SELFPAY ==
[2023-09-24 21:06] VITALS: BP 145/80; PULSE 74; RESP 18; TEMP 36.8; O2SAT 97; BMI 32.3
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
[2023-09-24] MEDS: METHOCARBAMOL 500MG TABLET 1000 MG PO (21:56)
[2023-09-24] MEDS: ACETAMINOPHEN 500MG TAB 1000 MG PO (21:56)
[2023-09-24] MEDS: IBUPROFEN 600 MG TABLET PO (21:56)
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
[2023-09-24] MEDS: LIDOCAINE 5% TRANSDERMAL PATCH 1 EACH TP (22:07)
[2023-09-24 23:29] VITALS: BP 140/78; PULSE 76; RESP 16; TEMP 36.8; O2SAT 98
== END 2023-09-24 23:31 | disposition home or self-care (01) ==
PROVIDERS: Emergency Provider Emergency Medicine; PCP Internal Medicine
DX: S22.42XA Multiple fractures of ribs, left side, initial encounter for closed fracture (principal); F17.210 Nicotine dependence, cigarettes, uncomplicated; W55.22XA Struck by cow, initial encounter
CPT/HCPCS: 71250; 99284

== ENCOUNTER 2024-01-15 14:14 | Outpatient (CLI) | payer BC, SELFPAY ==
[2024-01-15 12:45] LABS: Basophils # 0.1 K/mm3 (0-0.2); Basophils % 1.6 % (0.1-2.0); Eosinophils # 0.2 K/mm3 (0.0-0.4); Hematocrit 48.5 % (42.0-52.0); Lymphocytes # 1.3 K/mm3 (0.7-4.5); Lymphocytes % 23.4 % (10-50); Mean Corpuscular Hemoglobin 31.8 pg (27.0-31.2); Mean Corpuscular Volume 96.5 fl (80-94); Mean Platelet Volume 9.7 fl (7.4-10.4); Monocytes # 0.5 K/mm3 (0.1-1.0); Monocytes % 9.1 % (1.7-9.3); Neutrophils # 3.3 K/mm3 (1.8-7.8); Neutrophils % 61.8 % (37.0-80.0); Platelet Count 168 K/mm3 (142-424); Red Blood Count 5.03 M/mm3 (4.60-6.20); White Blood Count 5.3 K/mm3 (4.8-10.8)
[2024-01-15 13:12] LABS: Alanine Aminotransferase 39 U/L (12-78); Albumin/Globulin Ratio 1.7 (1.1-1.8); Alkaline Phosphatase 89 U/L (38-126); Anion Gap 10.1 mEq/L (5-15); Aspartate Amino Transferase 28 U/L (17-59); Bilirubin,Total 0.5 mg/dl (0.2-1.3); Blood Urea Nitrogen 14 mg/dl (9-20); Calcium 9.6 mg/dl (8.4-10.2); Carbon Dioxide 25 mmol/L (22.0-30.0); Chloride 109 mmol/L (98-107); Chol/HDL Ratio 3.1 (1-3.5); Cholesterol 115 mg/dl (140-200); Estimated Glomerular Filt Rate 114 ml/min (>60); GFR (African American) 138 ML/MIN (>60); Globulin 2.3 g/dL (1.3-3.2); Glucose 87 mg/dl (74-100); HDL Cholesterol 37 mg/dl (40-60); Potassium 4.1 mmoL/L (3.5-5.1); Sodium 140 mmol/L (136-145); Total Protein,Serum 6.3 g/dl (6.3-8.2); Triglycerides 90 mg/dl (30-150); VLDL Cholesterol 18 mg/dL (0-40)
[2024-01-15 13:23] LABS: Direct LDL Cholesterol 58.61 mg/dL (100-129)
[2024-01-15 13:44] LABS: Prostate Specific Ag Screen 0.6 ng/ml (0.0-4.0)
== END 2024-01-15 23:59 | disposition home or self-care (01) ==
LOC: LAB.DROPOF 14:15
PROVIDERS: PCP Internal Medicine; Visit Provider Internal Medicine
DX: I10 Essential (primary) hypertension (principal); E78.2 Mixed hyperlipidemia; Z12.5 Encounter for screening for malignant neoplasm of prostate; Z72.0 Tobacco use
CPT/HCPCS: 80053; 80061; 85025; G0103

== ENCOUNTER 2024-01-19 14:10 | Outpatient (CLI) | payer BC, SELFPAY ==
--- NOTE | 2024-01-19 14:10 | US_ITS ---
FINAL REPORT TECHNIQUE: Ultrasound examination soft tissues of the posterior neck CLINICAL HISTORY: Enlarging lesion back of neck ,cyst versus lipoma COMPARISON: None FINDINGS: SOFT TISSUE ULTRASOUND: The region of interest is in the posterior aspect of the neck. As indicated by the patient, in the region of interest there is a soft tissue nodule which measures 29 x 24 x 10 mm in size. This may represent an enlarged lymph node or other mass. CT or MRI through the region of interest is suggested for further evaluation if clinically indicated. IMPRESSION: Soft tissue nodule in the region of interest, 29 x 24 x 10 mm in size. This may represent an enlarged lymph node or other mass. CT or MRI through the region of interest is suggested for further evaluation if clinically indicated. Reviewed, Interpreted and Dictated by Will Watts MD Transcribed by Ro Pederson Authenticated and [facility]
== END 2024-01-19 23:59 | disposition home or self-care (01) ==
LOC: RAD 14:10
PROVIDERS: PCP Internal Medicine; Visit Provider Internal Medicine
DX: L98.9 Disorder of the skin and subcutaneous tissue, unspecified (principal)
CPT/HCPCS: 76536

== ENCOUNTER 2024-02-08 06:12 | Outpatient (CLI) | payer BC, SELFPAY ==
--- NOTE | 2024-02-08 06:20 | CT_ITS ---
FINAL REPORT TECHNIQUE: Thin section axial CT images with coronal and sagittal reformats were performed through the neck. This study was performed with techniques to keep radiation doses as low as reasonably achievable (ALARA). Individualized dose reduction techniques using automated exposure control or adjustment of mA and/or kV according to the patient''s size were employed. CLINICAL HISTORY: Lesion on back of right neck FINDINGS: No fracture is identified. There are moderate to severe degenerative changes with multilevel osteophytes. There is multilevel mild central canal stenosis, worst at C5-6. Multilevel neural foraminal narrowing is also identified. There is chronic soft tissue calcification posterior to the C5 spinous process measuring 9 mm. IMPRESSION: Chronic soft tissue calcification posterior to C5 spinous process. Multilevel degenerative disc disease. Reviewed, Interpreted and Dictated by Harpal Silva III, MD Transcribed by Malaika Thompson Authenticated and [facility]
== END 2024-02-08 23:59 | disposition home or self-care (01) ==
LOC: RAD 06:12
PROVIDERS: PCP Internal Medicine; Visit Provider Internal Medicine
DX: L98.9 Disorder of the skin and subcutaneous tissue, unspecified (principal)
CPT/HCPCS: 70490

== ENCOUNTER 2024-04-30 13:30 | Outpatient (CLI) | payer BC, SELFPAY ==
[2024-04-30 14:01] LABS: Basophils # 0.1 K/mm3 (0-0.2); Basophils % 0.9 % (0.1-2.0); Eosinophils # 0.2 K/mm3 (0.0-0.4); Eosinophils % 3.1 % (0.1-12.0); Hematocrit 46.6 % (42.0-52.0); Hemoglobin 16.3 g/dL (14.1-18.0); Lymphocytes # 1.3 K/mm3 (0.7-4.5); Mean Corpuscular Hemoglobin 31.6 pg (27.0-31.2); Mean Corpuscular Volume 90.1 fl (80-94); Mean Platelet Volume 9.5 fl (7.4-10.4); Monocytes # 0.4 K/mm3 (0.1-1.0); Monocytes % 7.1 % (1.7-9.3); Neutrophils # 3.5 K/mm3 (1.8-7.8); Neutrophils % 64.9 % (37.0-80.0); Platelet Count 166 K/mm3 (142-424); Red Blood Count 5.17 M/mm3 (4.60-6.20); Red Cell Distribution Width 13.6 % (11.5-17.5); White Blood Count 5.4 K/mm3 (4.8-10.8)
[2024-04-30 14:31] LABS: Chloride 109 mmol/L (98-107); Potassium 3.7 mmoL/L (3.5-5.1); Sodium 140 mmol/L (136-145)
[2024-04-30 14:34] LABS: Anion Gap 12.7 mEq/L (5-15); Blood Urea Nitrogen 13 mg/dl (9-20); Carbon Dioxide 22 mmol/L (22.0-30.0); Estimated Glomerular Filt Rate 85 ml/min (>60); GFR (African American) 103 ML/MIN (>60)
[2024-04-30 14:35] LABS: Calcium 9.2 mg/dl (8.4-10.2); Glucose 149 mg/dl (74-100)
== END 2024-04-30 23:59 | disposition home or self-care (01) ==
LOC: LAB 13:30
PROVIDERS: PCP Internal Medicine; Visit Provider Surgery
DX: D17.0 Benign lipomatous neoplasm of skin and subcutaneous tissue of head, face and neck (principal)
CPT/HCPCS: 36415; 80048; 85025

== ENCOUNTER 2024-05-01 11:36 | Outpatient (CLI) | payer BC, SELFPAY ==
--- NOTE | 2024-05-01 12:45 | ECG_ITS ---
APPROVED REPORT Exam: Resting ECG HR:66 bpm ECG Measurements Heart Rate 66 AXES NE 133 P 42 QRSd 142 QRS 91 QT 439 T 16 QTc 453 Conclusion SINUS RHYTHM WITH FREQUENT VENTRICULAR PREMATURE COMPLEXES POSSIBLE LEFT ATRIAL ENLARGEMENT [-0.1mV P-WAVE IN V1/V2] RIGHT BUNDLE BRANCH BLOCK [120+ ms QRS DURATION, UPRIGHT V1, 40+ ms S IN I/aVL/V4/V5/V6] ABNORMAL ECG UNCONFIRMED REPORT Electronically signed by : Frank Michael MD 05/05/2024 12:53:16
== END 2024-05-01 23:59 | disposition home or self-care (01) ==
LOC: PREOP 11:37
PROVIDERS: PCP Internal Medicine; Visit Provider Surgery
DX: I49.3 Ventricular premature depolarization (principal); I45.10 Unspecified right bundle-branch block; R94.31 Abnormal electrocardiogram [ECG] [EKG]
CPT/HCPCS: 93005

== ENCOUNTER 2024-05-06 06:07 | Day surgery (SDC) | payer BC, SELFPAY ==
[2024-05-01 13:32] VITALS: BMI 32.3
--- NOTE | 2024-05-02 12:03 | SUR.PREOP ---
Spoke w/ James William, verbalized agreement for pt to hold Plavix and proceed with surgery as scheduled. Patient notified and verbalized understanding.
[2024-05-06] VITALS (9 sets, daily range): BP systolic 105–139; BP diastolic 47–76; PULSE 44–77; RESP 16–20; TEMP 36.2–36.7; O2SAT 90–96
[2024-05-06] MEDS: 0.9 % SODIUM CHLORIDE 1000ML 1,000 ML 25 ML IV (06:47)
--- NOTE | 2024-05-06 06:54 | EXP.ANES.CKL ---
[facility] Disclaimer: The information contained in this section may have been updated after the patient was seen, as this information can be updated by other users. Medical History HLD (hyperlipidemia) HTN (hypertension) CAD (coronary artery disease) Multiple sclerosis Sinus bradycardia Surgical History History of foot surgery History of hernia repair History of coronary artery stent placement History of colonoscopy Family History Other Family history of heart disease Social History (Updated 05/06/24 @ 06:35 by Arlene Florez RN) Smoking Status: Current every day smoker tobacco type: cigarettes packs per day: 5 alcohol intake: never substance use type: denies use current occupational status: retired Travel in the last 8 weeks: None household members: spouse housing: house current occupation: [employer] caffeine: Yes [facility] Anesthesia Checklist Patient Identification Patient Identification: Arm Band and Verbal (Name & ) Structural Data Admitted From: Home Planned Operative Procedure/s: Excision of lipoma on neck Consent for Planned Operative Procedure(s) Verified: Yes Verified Documents: Surgical Consent and History and Physical NPO Status Verified Time NPO: 00:00 Chart Verification Results Verified: CBC, BMP, ECG and Chest Xray Additional verifications Patient : No Anesthesia Reactions: Yes (nausea / vomiting) Hx Blood Transfusions: No Blood Transfusion Reaction: No Cardiovascular Assessment Heart Sounds: S1 & S2 Pulse Rhythm: Irregular Peripheral Edema: No Airway Assessment Mallampati Score:: Class II C-Spine Mobility Assessed: Yes (FROM demonstrated) TMJ Mobility Assessed: Yes Dentition: Good Dentition (Nothing loose per pt.) Neurological Assessment Level of Consciousness: Awake, Alert, Appropriate and Follows Commands Hx Seizures: No Numbness or tingling in extremities: No Anesthesia Plan Anesthesia Risk discussed: Yes Anesthesia Plan: Verified ASA Class: III Anesthesia Type: General
[2024-05-06] MEDS: CEFAZOLIN SODIUM 2 GM in 0.9 % SODIUM CHLORIDE 100 ML IV (07:15)
[2024-05-06] MEDS: LIDOCAINE 1% 20ML MDV 20 ML (07:34)
[2024-05-06] MEDS: ROPIVACAINE 0.5% 30ML VIAL 150 MG (07:34)
--- NOTE | 2024-05-06 08:17 | EXP.OP.NOTE ---
Date of procedure: 05/06/24 Pre-op Diagnosis:: Posterior neck mass Post-op Diagnosis:: Same Procedure performed:: Excision of deep posterior neck mass (excisional length 4 cm) with intermediate complex closure Surgeon:: Harpal Alfaro MD CAN SOLDERER:: Sunny Solomon Anesthesia: local and LMA Estimated blood loss (mL): 7 Operative findings:: Probable DC subcutaneous lipoma Operative note:: Consent was obtained and patient was taken to the operating room. He was given preoperative intravenous antibiotics. In the operating room he was placed in a supine position. Anesthesia was induced via LMA. He was positioned in the left lateral position. The area was prepped and draped in the standard surgical fashion. He had a palpable subcutaneous nodule. Skin was marked with skin marker for planned transverse incision. Skin incision was made. Dissection was carried down through dermis and superficial subcutaneous tissues. There was some relatively well-circumscribed but somewhat lobulated adipose tissue likely consistent with lipoma. This was deep to the subcutaneous fascia which required incising with electrocautery. Using electrocautery with some blunt dissection and some use of scissor dissection the lesion was dissected free as a subcutaneous nodule and sent off as specimen. Wound was irrigated and hemostasis was achieved with electrocautery. Wound was probed digitally to assess for any residual lesion and there was no definite residual mass or nodule. Local anesthetic was infiltrated. Subcutaneous fascia was closed with several interrupted 2-0 Vicryl. Deep dermal tissues were closed with several interrupted 3-0 Vicryl. Skin was closed with 4-0 Monocryl running subcuticular fashion. Dermabond and dressing was applied. Condition: stable Disposition: PACU Complications:: None immediately apparent
--- NOTE | 2024-05-06 08:25 | P.PNANES_ITS ---
[facility] Anesthesia Record Part I Anesthesia Record I Intake, IV Amount: 500 Hydration: Adequate Estimated blood loss (mL): 10 Urine output (mL): 0 Blood Pressure: 139/75 SaO2: 93 Pulse Rate: 77 Airway Patency: Patent Respiratory Rate: 20 Temperature: 97.2 F Patient is:: Awake Stable to PACU at:: 08:20
--- NOTE | 2024-05-06 08:55 | SUR.PHASEI ---
0851- bedside report given to LUCAS Lofton. Pt in 0/10 pain, dressing CDI, VSS, and he is tolerating water w/o N/V. Bed locked in lowest position.
--- NOTE | 2024-05-08 10:25 | EXP.ANES.II ---
[facility] Anesthesia Record Part II Anesthesia Record Part II Discharge Time: 08:40 Destination: Surgical Day Care (OP Surgery) PACU nurse assessment reviewed?: Yes Patient Condition:: Good Anesthesia Complications:: None Swallowing reflex intact?: Yes Airway Patency: Patent Cyanosis?: No Blood Pressure: 126/67 SaO2: 95 Respiratory Rate: 18 Pulse Rate: 69 Temperature: 97.6 F Mental Status: Alert & Oriented Pain level:: 0 Nausea and/or vomitting:: None Intake, IV Amount: 0 Hydration: Adequate
[2024-05-08 10:26] VITALS: BP 126/67; PULSE 69; RESP 18; TEMP 36.4; O2SAT 95
== END 2024-05-06 09:40 | disposition home or self-care (01) ==
PROVIDERS: PCP Internal Medicine; Visit Provider Surgery
PROC: (CPT 11424; principal; 2024-05-06 07:30)
DX: R22.1 Localized swelling, mass and lump, neck (principal)
CPT/HCPCS: 11424; 13132; 96374; J0690; J1100; J1595; J2405; J3010; J7030

== ENCOUNTER 2024-09-27 09:53 | Outpatient (CLI) | payer BC, SELFPAY ==
[2024-09-27 10:42] LABS: Basophils # 0.1 K/mm3 (0-0.2); Eosinophils # 0.2 K/mm3 (0.0-0.4); Eosinophils % 4.1 % (0.1-12.0); Lymphocytes # 1.6 K/mm3 (0.7-4.5); Lymphocytes % 26.4 % (10-50); Mean Corpuscular HGB Conc 33.3 g/dL (31.8-35.4); Mean Corpuscular Hemoglobin 29.9 pg (27.0-31.2); Mean Corpuscular Volume 89.7 fl (80-94); Mean Platelet Volume 10.9 fl (7.4-10.4); Monocytes # 0.7 K/mm3 (0.1-1.0); Monocytes % 11.3 % (1.7-9.3); Neutrophils # 3.4 K/mm3 (1.8-7.8); Platelet Count 179 K/mm3 (142-424); Red Blood Count 5.35 M/mm3 (4.60-6.20); White Blood Count 5.9 K/mm3 (4.8-10.8)
[2024-09-27 11:06] LABS: Albumin Level 4.4 g/dl (3.5-5.0); Chloride 107 mmol/L (98-107); Potassium 4.1 mmoL/L (3.5-5.1); Sodium 141 mmol/L (136-145)
[2024-09-27 11:08] LABS: Alanine Aminotransferase 34 U/L (12-78); Anion Gap 12.1 mEq/L (5-15); Aspartate Amino Transferase 27 U/L (17-59); Blood Urea Nitrogen 13 mg/dl (9-20); Carbon Dioxide 26 mmol/L (22.0-30.0); Estimated Glomerular Filt Rate 98 ml/min (>60); GFR (African American) 118 ML/MIN (>60)
[2024-09-27 11:09] LABS: Albumin/Globulin Ratio 1.9 (1.1-1.8); Alkaline Phosphatase 87 U/L (38-126); Bilirubin,Total 0.7 mg/dl (0.2-1.3); Calcium 10.1 mg/dl (8.4-10.2); Globulin 2.3 g/dL (1.3-3.2); Glucose 87 mg/dl (74-100); Total Protein,Serum 6.7 g/dl (6.3-8.2)
== END 2024-09-27 23:59 | disposition home or self-care (01) ==
LOC: LAB 09:55
PROVIDERS: PCP Internal Medicine; Visit Provider Psychiatry & Neurology Neurology
DX: D84.9 Immunodeficiency, unspecified (principal)
CPT/HCPCS: 36415; 80053; 85025

== ENCOUNTER 2024-10-16 08:55 | Outpatient (CLI) | payer BC, SELFPAY ==
[2024-10-16 13:39] LABS: Basophils # 0.1 K/mm3 (0-0.2); Eosinophils # 0.2 Kmm3 (0.0-0.4); Eosinophils % 3.6 % (0.1-12.0); Hematocrit 46.7 % (42.0-52.0); Hemoglobin 15.9 g/dL (14.1-18.0); Lymphocytes # 1.3 K/mm3 (0.7-4.5); Lymphocytes % 23.3 % (10-50); Mean Corpuscular Hemoglobin 31.1 pg (27.0-31.2); Mean Corpuscular Volume 91.2 fl (80-94); Mean Platelet Volume 11.9 fl (7.4-10.4); Monocytes # 0.7 K/mm3 (0.1-1.0); Monocytes % 12.8 % (1.7-9.3); Neutrophils # 3.4 K/mm3 (1.8-7.8); Nucleated Red Blood Cells # 0 10^3/uL; Nucleated Red Blood Cells % 0 %; Platelet Count 160 K/mm3 (142-424); Red Blood Count 5.12 M/mm3 (4.60-6.20); Red Cell Distribution Width 13.2 % (11.5-17.5); Red Cell Distribution Width-SD 44.3 fL; White Blood Count 5.8 K/mm3 (4.8-10.8)
[2024-10-16 14:34] LABS: Alanine Aminotransferase 33 U/L (12-78); Albumin Level 4.2 g/dl (3.5-5.0); Albumin/Globulin Ratio 1.7 (1.1-1.8); Alkaline Phosphatase 84 U/L (38-126); Anion Gap 14.2 mEq/L (5-15); Aspartate Amino Transferase 28 U/L (17-59); Bilirubin,Total 0.7 mg/dl (0.2-1.3); Blood Urea Nitrogen 15 mg/dl (9-20); Calcium 9.3 mg/dl (8.4-10.2); Carbon Dioxide 25 mmol/L (22.0-30.0); Chloride 105 mmol/L (98-107); Chol/HDL Ratio 3.6 (1-3.5); Cholesterol 128 mg/dl (140-200); Estimated Glomerular Filt Rate 98 ml/min (>60); GFR (African American) 118 ML/MIN (>60); Globulin 2.5 g/dL (1.3-3.2); Glucose 72 mg/dl (74-100); HDL Cholesterol 36 mg/dl (40-60); Potassium 4.2 mmoL/L (3.5-5.1); Sodium 140 mmol/L (136-145); Total Protein,Serum 6.7 g/dl (6.3-8.2); Triglycerides 111 mg/dl (30-150); VLDL Cholesterol 22 mg/dL (0-40)
[2024-10-16 14:44] LABS: Direct LDL Cholesterol 66.21 mg/dL (100-129)
--- OUTSIDE RECORDS SUMMARY | 2024-10-17 11:11 | XMS_ITS | Data Portability ---
Author Organization [facility] HEL[facility] SESSER CLOSED Address [address] [facility] [address] [place] [address] Care Team Providers Care Driller And Broacher Name Role Phone NEIL GREEN Primary Care Provider [phone] Assessment Encounter Date Assessment Date Assessment LastModified by Organization Details LastModified Time 01/16/2023 01/16/2023 Assessment: 1. Stable Multiple Sclerosis, onset late 30's 2. Free of exacerbation 3. Disease controlled by Dimethyl Fumarate 240mg x1,BID 4. Takes supplemental Vitamin D3 5. Most recent BT CBC and CMP 07/12/22, --adequate lymphocyte count ALC 1300, other aspects of CBC normal --normal liver enzymes ALT and AST, other CMP normal with the exception of elevated glucose levels Plan: 1. Submit blood tests today CBC and CMP and vitamin D level 2. Continue current medications 3. No changes are needed 4. Follow up in 6 months, sooner if needed. [email or web address] Not available 01/16/2023 08:19:44 07/24/2023 07/24/2023 Assessment: 1. Mutliple Sclerosis 2. Free of exacerbation 3. Disease controlled by medication, Dimethyl Fumarate 4. Good tolerance of Dimethyl Fumarate 5. He has had recent screening blood tests with Dr. Neil Green, he will stop there today and will have results faxed to me 6. He continues vitamin D Plan: 1. No changes are needed 2. Continue current medications 3. Follow up in 6 months with me, sooner if needed. Not available 07/24/2023 08:37:57 01/22/2024 01/22/2024 Assessment: 1. Multiple Sclerosis, stable 2. Disease is controlled by dimethyl fumarate. 3. History of tysabri use, been away from this medication for 2-3 years. 4. Good safety on blood test performed in December 2023. 5. He continues vitamin D supplement Plan: 1. No changes are needed 2. I spoke of my intended mcc at the end of 2023. 3. I proposed MRI's but he states that he is very claustrophobic and would have to be heavily sedated to have MRI. 4. Follow up in 6 months prior to my mcc, sooner if needed. NOTE: PCP is Neil Green MD. [email or web address] Not available 01/22/2024 09:18:46 05/29/2024 05/29/2024 Assessment: 1. Multiple sclerosis 2. Free of exacerbation 3. Disease controlled by dimethyl fumarate 4. Chronic fatigue 5 symptoms controlled with modafinil 6 he is well-informed about the risk of modafinil use in patients with known coronary artery disease 7. He needs screening blood studies today for safety check on DMT Plan: 1. Submit blood test today for CBC CMP and vitamin D level 2. Continue current meds 3. Will prescribe modafinil using half tablet morning and half tablet afternoon 4. He is aware that I retire last patient visits end of June 30. Follow-up in [address] Deanna De in this department That appointment scheduled 11/25/24 His primary medical doctor is Neil Green MD in [place] [address] Not available 05/30/2024 08:06:50 Plan of Treatment Reminders Order Date Submit Date Provider Last Modified By Organization Details Last Modified Time Details Appointments NEUROLOGY RECHECK 2024 08:30A Tammy DE DO Not available Not available Not available RECHECK 2024 09:00A Tammy SPRAGUE MD Not available Not available Not available Lab urinalysi s panel, auto 2023 024 [facility], [address], [address], [place], [address], 02/07/2024 15:33:28 PSA, serum or plasma 2023 024 mir [facility], [address], [address], [place], [address], 02/07/2024 15:25:16 CBC w/ auto diff 2022 023 [facility], [address] [place] [address], [address], 01/16/2023 09:58:22 CMP, serum or plasma 2022 023 [facility], [address] [place] [address], [address], 01/16/2023 10:01:17 vitamin D, 25-hydrox y, total, serum 2022 023 [facility], [address] [place] [address], [address], 01/16/2023 10:09:54 Referral None recorded. Procedures None recorded. Surgeries None recorded. Imaging None recorded. Medication Orders modafinil 200 mg tablet 2023 024 [facility] 591, [address], [address], 05/30/2024 08:10:01 tamsulosi n 0.4 mg capsule 2023 024 [facility] 591, [address], [address], 02/07/2024 15:25:23 solifenac in 10 mg tablet 2023 024 [facility] 591, [address], [address], 02/07/2024 15:25:25 Patient TargetsNo targets recorded. Patient InstructionsNo instructions recorded. Reason for Referral None Reported. Results Created Date Observation Date Name Description Value Unit Range Abnormal Flag Note LastModifiedBy Organization Detail LastModifiedTime 01/17/2001/16/2023 COMPL ETE BLOOD COUNT white blood cells 5.3 10*3/ uL 3.8-10 .8 normal Not Available [facility] [address] [place] [address], [address], 01/16/2023 09:58:22 01/17/2001/16/2023 COMPL ETE BLOOD COUNT red blood cells 5.05 10*6/ uL 4.20-5 .80 normal Not Available [facility] [address] [place] [address], [address], 01/16/2023 09:58:22 01/17/20 23 01/16/2023 COMPL ETE BLOOD COUNT hemoglobin 15.4 g/dL 14.0-1 8.0 normal Not Available [facility] [address] [place] [address], [address], 01/16/2023 09:58:22 01/17/2001/16/2023 COMPL ETE BLOOD COUNT hematocrit 45.2 % 40.0-5 2.0 normal Not Available [facility] [address] [place] [address], [address], 01/16/2023 09:58:22 01/17/2001/16/2023 COMPL ETE BLOOD COUNT MCV 90 fL 80-100 normal Not Available [facility] [address] [place] [address], [address], 01/16/2023 09:58:22 01/17/2001/16/2023 COMPL ETE BLOOD COUNT MCH 31 pg 26-35 normal Not Available [facility] [address] [place] [address], [address], 01/16/2023 09:58:22 01/17/2001/16/2023 COMPL ETE BLOOD COUNT MCHC 34 g/dL 32-36 normal Not Available [facility] [address] [place] [address], [address], 01/16/2023 09:58:22 01/17/2001/16/2023 COMPL ETE BLOOD COUNT RDW 14.2 % 11.0-1 5.0 normal Not Available [facility] [address] [place] [address], [address], 01/16/2023 09:58:22 01/17/20 23 01/16/2023 COMPL ETE BLOOD COUNT MPV 9.5 fL 6.2-10 .5 normal Not Available [facility] [address] [place] [address], [address], 01/16/2023 09:58:22 01/17/20 23 01/16/2023 COMPL ETE BLOOD COUNT platelet count 134 10*3/ uL 130-40 0 normal Not Available [facility] [address] [place] [address], [address], 01/16/2023 09:58:22 01/17/2001/16/2023 COMPL ETE BLOOD COUNT neutrophil,a bsolute 3.2 10*3/ uL 1.6-8. 4 normal Not Available [facility] [address] [place] [address], [address], 01/16/2023 09:58:22 01/17/20 23 01/16/2023 COMPL ETE BLOOD COUNT lymphocyte,a bsolute 1.2 10*3/ uL 0.4-5. 1 normal Not Available [facility] [address] [place] [address], [address], 01/16/2023 09:58:22 01/17/2001/16/2023 COMPL ETE BLOOD COUNT monocyte,abs olute 0.7 10*3/ uL 0.0-1. 2 normal Not Available [facility] [address] [place] [address], [address], 01/16/2023 09:58:22 01/17/20 23 01/16/2023 COMPL ETE BLOOD COUNT eosinophil,a bsolute 0.2 10*3/ uL 0.0-0. 8 normal Not Available [facility] [address] [place] [address], [address], 01/16/2023 09:58:22 01/17/2001/16/2023 COMPL ETE BLOOD COUNT basophil,abs olute 0.0 10*3/ uL 0.0-0. 3 normal Not Available [facility] [address] [place] [address], [address], 01/16/2023 09:58:22 01/17/20 23 01/16/2023 COMPL ETE BLOOD COUNT % neutrophils 61.5 % 42.0-7 8.0 normal Not Available [facility] [address] [place] [address], [address], 01/16/2023 09:58:22 01/17/2001/16/2023 COMPL ETE BLOOD COUNT % lymphocytes 21.9 % 11.0-4 7.0 normal Not Available [facility] [address] [place] [address], [address], 01/16/2023 09:58:22 01/17/2001/16/2023 COMPL ETE BLOOD COUNT % monocytes 12.5 % 0.0-11 .0 high Not Available [facility] [address] [place] [address], [address], 01/16/2023 09:58:22 01/17/2001/16/2023 COMPL ETE BLOOD COUNT % eosinophils 3.2 % 0.0-7. 0 normal Not Available [facility] [address] [place] [address], [address], 01/16/2023 09:58:22 01/17/2001/16/2023 COMPL ETE BLOOD COUNT % basophils 0.9 % 0.0-3. 0 normal Not Available [facility] [address] [place] [address], [address], 01/16/2023 09:58:22 01/17/2001/16/2023 COMPL ETE BLOOD COUNT nucleated red cells 0.1 % 0.0-0. 9 normal Not Available [facility] [address] [place] [address], [address], 01/16/2023 09:58:22 01/17/20 23 01/16/2023 COMPL ETE BLOOD COUNT nucleated RBCs, absolute 0.00 10*3/ uL not estab. normal Not Available [facility] [address] [place] [address], [address], 01/16/2023 09:58:22 01/17/20 23 01/16/2023 COMP. METAB OLIC PANEL glucose 105 mg/dL 74-100 high Not Available [facility] [address] [place] [address], [address], 01/16/2023 10:01:17 01/17/20 23 01/16/2023 COMP. METAB OLIC PANEL blood urea nitrogen 12 mg/dL 6-20 normal Not Available [facility] [address] [place] [address], [address], 01/16/2023 10:01:17 01/17/20 23 01/16/2023 COMP. METAB OLIC PANEL creatinine 0.77 mg/dL 0.70-1 .28 normal Not Available [facility] [address] [place] [address], [address], 01/16/2023 10:01:17 01/17/20 23 01/16/2023 COMP. METAB OLIC PANEL BUN/creatini ne ratio 16 (calc ) 10-20 normal Not Available [facility] [address] [place] [address], [address], 01/16/2023 10:01:17 01/17/20 23 01/16/2023 COMP. METAB OLIC PANEL sodium 141 mmol/ L 136-14 5 normal Not Available [facility] [address] [place] [address], [address], 01/16/2023 10:01:17 01/17/20 23 01/16/2023 COMP. METAB OLIC PANEL potassium 3.8 mmol/ L 3.4-5. 0 normal Not Available [facility] [address] [place] [address], [address], 01/16/2023 10:01:17 01/17/20 23 01/16/2023 COMP. METAB OLIC PANEL chloride 107 mmol/ L 98-107 normal Not Available [facility] [address] [place] [address], [address], 01/16/2023 10:01:17 01/17/20 23 01/16/2023 COMP. METAB OLIC PANEL carbon dioxide 21 mmol/ L 22-31 low Not Available [facility] [address] [place] [address], [address], 01/16/2023 10:01:01/17/20 23 01/16/2023 COMP. METAB OLIC PANEL anion gap 13 (calc ) 7-25 normal Not Available [facility] [address] [place] [address], [address], 01/16/2023 10:01:01/17/2001/16/2023 COMP. METAB OLIC PANEL calcium 9.3 mg/dL 8.6-10 .2 normal Not Available [facility] [address] [place] [address], [address], 01/16/2023 10:01:01/17/2001/16/2023 COMP. METAB OLIC PANEL total protein 6.6 g/dL 6.4-8. 3 normal Not Available [facility] [address] [place] [address], [address], 01/16/2023 10:01:01/17/20 23 01/16/2023 COMP. METAB OLIC PANEL albumin 4.1 g/dL 3.5-5. 2 normal Not Available [facility] [address] [place] [address], [address], 01/16/2023 10:01:17 01/17/20 23 01/16/2023 COMP. METAB OLIC PANEL globulin 2.5 1.5-4. 5 normal Not Available [facility] [address] [place] [address], [address], 01/16/2023 10:01:17 01/17/20 23 01/16/2023 COMP. METAB OLIC PANEL albumin/glob ulin ratio 1.6 (calc ) 1.1-2. 5 normal Not Available [facility] [address] [place] [address], [address], 01/16/2023 10:01:17 01/17/20 23 01/16/2023 COMP. METAB OLIC PANEL bilirubin, total 0.6 mg/dL 0.1-1. 2 normal Not Available [facility] [address] [place] [address], [address], 01/16/2023 10:01:17 01/17/20 23 01/16/2023 COMP. METAB OLIC PANEL alkaline phosphatase 93 U/L 40-129 normal Not Available [facility] [address] [place] [address], [address], 01/16/2023 10:01:17 01/17/20 23 01/16/2023 COMP. METAB OLIC PANEL AST 17 U/L 0-40 normal Not Available [facility] [address] [place] [address], [address], 01/16/2023 10:01:17 01/17/20 23 01/16/2023 COMP. METAB OLIC PANEL ALT 25 U/L 0-41 normal Not Available [facility] [address] [place] [address], [address], 01/16/2023 10:01:17 01/17/20 23 01/16/2023 COMP. METAB OLIC PANEL GFR 101 >= 60 normal NOT E New calcu latio n for GFR (CKD- EPI 2020) is formu lated witho ut race adjus [facility] and Amkelli can Daltone ty of Nephr ology . This calcu latio n has not been valid ated in pregn ant women . For jordi barajas nts refer to https ://rodolfo de la cruz.gerber vu.o prince/pr michael juarez s/KDO QI/gf r_cal culat orPed Not Available [facility] [address] [place] [address], [address], 01/16/2023 10:01:17 01/17/20 23 01/16/2023 VITAM IN D 25-OH vitamin D 25-oh, total 76 NG/mL >=30 NG/mL normal Not Available [facility] [address] [place] [address], [address], 01/16/2023 10:09:54 02/07/20 24 02/07/2024 PSA, serum or plasm a PSA 0.48 NG/mL 0.0 - 4.0 Not Available [facility] [address], [place], [address], 02/07/2024 15:12:23 02/07/20 24 02/07/2024 urina lysis panel , auto Unknown Analyte Clean Catch Not Available [facility] [address], [place], [address], 02/07/2024 14:51:30 02/07/20 24 02/07/2024 urina lysis panel , auto Unknown Analyte Yellow Not Available [facility] [address], [place], [address], 02/07/2024 14:51:30 02/07/20 24 02/07/2024 urina lysis panel , auto Unknown Analyte Clear Not Available [facility] [address], [place], [address], 02/07/2024 14:51:30 02/07/20 24 02/07/2024 urina lysis panel , auto Unknown Analyte 1.015 Not Available [facility] [address], [place], [address], 02/07/2024 14:51:30 02/07/20 24 02/07/2024 urina lysis panel , auto Unknown Analyte 1.003- 1.035 Not Available [facility] [address], [place], [address], 02/07/2024 14:51:30 02/07/20 24 02/07/2024 urina lysis panel , auto Unknown Analyte 5.0 Not Available [facility] [address], [place], [address], 02/07/2024 14:51:30 02/07/20 24 02/07/2024 urina lysis panel , auto Unknown Analyte 5.0-8. 0 Not Available [facility] [address], [place], [address], 02/07/2024 14:51:30 02/07/20 24 02/07/2024 urina lysis panel , auto Unknown Analyte Negati ve Not Available [facility] [address], [place], [address], 02/07/2024 14:51:30 02/07/20 24 02/07/2024 urina lysis panel , auto Unknown Analyte Negati ve Not Available [facility] [address], [place], [address], 02/07/2024 14:51:30 02/07/20 24 02/07/2024 urina lysis panel , auto Unknown Analyte Negati ve Not Available [facility] [address], [place], [address], 02/07/2024 14:51:30 02/07/20 24 02/07/2024 urina lysis panel , auto Unknown Analyte Negati ve Not Available [facility] [address], [place], [address], 02/07/2024 14:51:30 02/07/20 24 02/07/2024 urina lysis panel , auto Unknown Analyte Negati ve Not Available [facility] [address], [place], [address], 02/07/2024 14:51:30 02/07/20 24 02/07/2024 urina lysis panel , auto Unknown Analyte Negati ve Not Available [facility] [address], [place], [address], 02/07/2024 14:51:30 02/07/2002/07/2024 urina lysis panel , auto Unknown Analyte Normal Not Available [facility] [address], [place], [address], 02/07/2024 14:51:30 02/07/20 24 02/07/2024 urina lysis panel , auto Unknown Analyte Normal Not Available [facility] [address], [place], [address], 02/07/2024 14:51:30 02/07/20 24 02/07/2024 urina lysis panel , auto Unknown Analyte Negati ve Not Available [facility] [address], [place], [address], 02/07/2024 14:51:30 02/07/20 24 02/07/2024 urina lysis panel , auto Unknown Analyte Negati ve Not Available [facility] [address], [place], [address], 02/07/2024 14:51:30 02/07/20 24 02/07/2024 urina lysis panel , auto Unknown Analyte 1 mg/dl Not Available [facility] [address], [place], [address], 02/07/2024 14:51:30 02/07/2002/07/2024 urina lysis panel , auto Unknown Analyte Normal 1 mg/dl Not Available [facility] [address], [place], [address], 02/07/2024 14:51:30 02/07/20 24 02/07/2024 urina lysis panel , auto Unknown Analyte Negati ve Not Available [facility] [address], [place], [address], 02/07/2024 14:51:30 02/07/20 24 02/07/2024 urina lysis panel , auto Unknown Analyte Negati ve Not Available [facility] [address], [place], [address], 02/07/2024 14:51:30 02/07/20 24 02/07/2024 urina lysis panel , auto Unknown Analyte Negati ve Not Available [facility] [address], [place], [address], 02/07/2024 14:51:30 02/07/20 24 02/07/2024 urina lysis panel , auto Unknown Analyte Negati ve Not Available [facility] [address], [place], [address], 02/07/2024 14:51:30 05/29/20 24 05/29/2024 COMPL ETE BLOOD COUNT white blood cells 5.8 10*3/ uL 3.8-10 .8 normal Not Available [facility] [address] [place] [address], [address], 05/29/2024 13:19:43 05/29/20 24 05/29/2024 COMPL ETE BLOOD COUNT red blood cells 5.05 10*6/ uL 4.20-5 .80 normal Not Available [facility] [address] [place] [address], [address], 05/29/2024 13:19:43 05/29/20 24 05/29/2024 COMPL ETE BLOOD COUNT hemoglobin 15.8 g/dL 14.0-1 8.0 normal Not Available [facility] [address] [place] [address], [address], 05/29/2024 13:19:43 05/29/20 24 05/29/2024 COMPL ETE BLOOD COUNT hematocrit 46.3 % 40.0-5 2.0 normal Not Available [facility] [address] [place] [address], [address], 05/29/2024 13:19:43 05/29/20 24 05/29/2024 COMPL ETE BLOOD COUNT MCV 92 fL 80-100 normal Not Available [facility] [address] [place] [address], [address], 05/29/2024 13:19:43 05/29/20 24 05/29/2024 COMPL ETE BLOOD COUNT MCH 31 pg 26-35 normal Not Available [facility] [address] [place] [address], [address], 05/29/2024 13:19:43 05/29/20 24 05/29/2024 COMPL ETE BLOOD COUNT MCHC 34 g/dL 32-36 normal Not Available [facility] [address] [place] [address], [address], 05/29/2024 13:19:43 05/29/20 24 05/29/2024 COMPL ETE BLOOD COUNT RDW 13.6 % 11.0-1 5.0 normal Not Available [facility] [address] [place] [address], [address], 05/29/2024 13:19:43 05/29/20 24 05/29/2024 COMPL ETE BLOOD COUNT MPV 9.4 fL 6.2-10 .5 normal Not Available [facility] [address] [place] [address], [address], 05/29/2024 13:19:43 05/29/20 24 05/29/2024 COMPL ETE BLOOD COUNT platelet count 166 10*3/ uL 150-40 0 normal Not Available [facility] [address] [place] [address], [address], 05/29/2024 13:19:43 05/29/20 24 05/29/2024 COMPL ETE BLOOD COUNT neutrophil,a bsolute 3.5 10*3/ uL 1.6-8. 4 normal Not Available [facility] [address] [place] [address], [address], 05/29/2024 13:19:43 05/29/20 05/29/2024 COMPL ETE BLOOD COUNT lymphocyte,a bsolute 1.3 10*3/ uL 0.4-5. 1 normal Not Available [facility] [address] [place] [address], [address], 05/29/2024 13:19:43 05/29/20 24 05/29/2024 COMPL ETE BLOOD COUNT monocyte,abs olute 0.7 10*3/ uL 0.0-1. 2 normal Not Available [facility] [address] [place] [address], [address], 05/29/2024 13:19:43 05/29/20 24 05/29/2024 COMPL ETE BLOOD COUNT eosinophil,a bsolute 0.2 10*3/ uL 0.0-0. 8 normal Not Available [facility] [address] [place] [place] [address], [phone], 05/29/2024 13:19:43 05/29/20 24 05/29/2024 COMPL ETE BLOOD COUNT basophil,abs olute 0.1 10*3/ uL 0.0-0. 3 normal Not Available [facility] [address] [place] [address], [address], 05/29/2024 13:19:43 05/29/20 24 05/29/2024 COMPL ETE BLOOD COUNT % neutrophils 61.0 % 42.0-7 8.0 normal Not Available [facility] [address] [place] [address], [address], 05/29/2024 13:19:43 05/29/20 24 05/29/2024 COMPL ETE BLOOD COUNT % lymphocytes 22.1 % 11.0-4 7.0 normal Not Available [facility] [address] [place] [address], [address], 05/29/2024 13:19:43 05/29/20 24 05/29/2024 COMPL ETE BLOOD COUNT % monocytes 12.3 % 0.0-11 .0 high Not Available [facility] [address] [place] [address], [phone], 05/29/2024 13:19:43 05/29/20 24 05/29/2024 COMPL ETE BLOOD COUNT % eosinophils 3.7 % 0.0-7. 0 normal Not Available [facility] [address] [place] [address], [address], 05/29/2024 13:19:43 05/29/20 24 05/29/2024 COMPL ETE BLOOD COUNT % basophils 0.9 % 0.0-3. 0 normal Not Available [facility] [address] [place] [address], [address], 05/29/2024 13:19:43 05/29/20 24 05/29/2024 COMPL ETE BLOOD COUNT nucleated red cells 0.0 % 0.0-0. 9 normal Not Available [facility] [address] [place] [address], [address], 05/29/2024 13:19:43 05/29/20 24 05/29/2024 COMPL ETE BLOOD COUNT nucleated RBCs, absolute 0.00 10*3/ uL not estab. normal Not Available [facility] [address] [place] [address], [address], 05/29/2024 13:19:43 05/29/20 24 05/29/2024 VITAM IN D 25-OH vitamin D 25-oh, total 57 NG/mL >=30 NG/mL normal Not Available [facility] [address] [place] [address], [address], 05/29/2024 13:53:05 05/29/20 24 05/29/2024 COMP. METAB OLIC PANEL glucose 93 mg/dL 74-100 normal Not Available [facility] [address] [place] [address], [address], 05/29/2024 14:23:10 05/29/20 24 05/29/2024 COMP. METAB OLIC PANEL blood urea nitrogen 12 mg/dL 6-20 normal Not Available [facility] [address] [place] [address], [address], 05/29/2024 14:23:10 05/29/20 24 05/29/2024 COMP. METAB OLIC PANEL creatinine 0.85 mg/dL 0.70-1 .28 normal Not Available [facility] [address] [place] [address], [address], 05/29/2024 14:23:10 05/29/20 24 05/29/2024 COMP. METAB OLIC PANEL BUN/creatini ne ratio 14 (calc ) 10-20 normal Not Available [facility] [address] [place] [address], [address], 05/29/2024 14:23:10 05/29/20 24 05/29/2024 COMP. METAB OLIC PANEL sodium 142 mmol/ L 136-14 5 normal Not Available [facility] [address] [place] [address], [address], 05/29/2024 14:23:10 05/29/20 24 05/29/2024 COMP. METAB OLIC PANEL potassium 4.0 mmol/ L 3.4-5. 0 normal Not Available [facility] [address] [place] [address], [address], 05/29/2024 14:23:10 05/29/20 24 05/29/2024 COMP. METAB OLIC PANEL chloride 108 mmol/ L 98-107 high Not Available [facility] [address] [place] [address], [address], 05/29/2024 14:23:10 05/29/20 24 05/29/2024 COMP. METAB OLIC PANEL carbon dioxide 22 mmol/ L 22-31 normal Not Available [facility] [address] [place] [address], [address], 05/29/2024 14:23:10 05/29/20 24 05/29/2024 COMP. METAB OLIC PANEL anion gap 12 (calc ) 7-25 normal Not Available [facility] [address] [place] [address], [address], 05/29/2024 14:23:10 05/29/20 24 05/29/2024 COMP. METAB OLIC PANEL calcium 9.6 mg/dL 8.6-10 .2 normal Not Available [facility] [address] [place] [address], [address], 05/29/2024 14:23:10 05/29/20 24 05/29/2024 COMP. METAB OLIC PANEL total protein 6.9 g/dL 6.4-8. 3 normal Not Available [facility] [address] [place] [address], [address], 05/29/2024 14:23:10 05/29/20 24 05/29/2024 COMP. METAB OLIC PANEL albumin 4.3 g/dL 3.5-5. 2 normal Not Available [facility] [address] [place] [address], [address], 05/29/2024 14:23:10 05/29/20 24 05/29/2024 COMP. METAB OLIC PANEL globulin 2.6 1.5-4. 5 normal Not Available [facility] [address] [place] [address], [address], 05/29/2024 14:23:10 05/29/20 24 05/29/2024 COMP. METAB OLIC PANEL albumin/glob ulin ratio 1.7 (calc ) 1.1-2. 5 normal Not Available [facility] [address] [place] [address], [address], 05/29/2024 14:23:10 05/29/20 24 05/29/2024 COMP. METAB OLIC PANEL bilirubin, total 0.5 mg/dL 0.1-1. 2 normal Not Available [facility] [address] [place] [address], [address], 05/29/2024 14:23:10 05/29/20 24 05/29/2024 COMP. METAB OLIC PANEL alkaline phosphatase 123 U/L 40-129 normal Not Available [facility] [address] [place], [address], 05/29/2024 14:23:10 05/29/20 24 05/29/2024 COMP. METAB OLIC PANEL AST 19 U/L 0-40 normal Not Available [facility] [address] [place], [address], 05/29/2024 14:23:10 05/29/20 24 05/29/2024 COMP. METAB OLIC PANEL ALT 27 U/L 0-41 normal Not Available [facility] [address] [place], [address], 05/29/2024 14:23:10 05/29/20 24 05/29/2024 COMP. METAB OLIC PANEL GFR 98 >= 60 normal NOT E New calcu latio n for GFR (CKD- EPI 2020) is formu lated witho ut race adjus tment facto rs at the recom menda tion of the Abdelrahman cook and Ayush mcgee [facility] . This calcu latio n has not been valid ated in pregn ant women . For pedia tric patie nts refer to https ://rodolfo vu.kavin rg/ryan juarez s/KDO QI/gf r_cal culat orPed Not Available [facility] [address] [place], [address], 05/29/2024 14:23:10 Result Notes None recorded. Problems Name Problem SNOMED Code Status Onset Date Resolution Date Notes Provider Name and Address Organization Details Recorded Time Multiple sclerosis 50281275 Active 2015 From Automated Load;Provi gail: Nirmala Taylor;Stat us: Active Not Available [facility] 2 18:23:07 Lack of energy 617036656 Active 2015 From Automated Load;Provi gail: Nirmala Taylor;Stat us: Active Not Available [facility] 2 18:23:07 Vitamin B deficienc y 01077975 Active 2015 From Automated Load;Provi gail: Nirmala Taylor;Stat us: Active Not Available [facility] 2 18:23:07 Problem Notes None recorded. Procedures Surgical History Date Name Laterality Status Provider Name and Address Organization Details Recorded Time 4 excision of lesion of skin completed Aura Garay [facility] 05/29/2024 11:11:53 8 Tympanogram completed PHILIP SCOTT, AUD [address] [place], [address], [facility] 06/21/2018 09:43:46 8 Audiogram completed PHILIP SCOTT AUD [address] [place], [address], [facility] 06/21/2018 09:43:43 8 Control Anterior Epistaxis completed [facility] 06/21/2018 08:32:38 8 Endoscopy Nasal; Biospy, Polypectomy or Debridement completed Lashell [facility] 06/21/2018 09:26:44 Hernia Repair completed Brody James [facility] 10/07/2016 09:20:22 insertion of arterial stent completed Simona Hanna [facility] 07/24/2023 08:10:56 colonoscopy completed Aura Garay [facility] 05/29/2024 11:12:29 Imaging Results None recorded. Procedure Notes None recorded. Medical Equipment None Reported. Allergies No known drug allergies Medications Name Sig Start Date Stop Date Status Note LastModified by Organization Details LastModified Time methylphe nidate 10 mg tablet Take one BID as directed 2022 active Not Available Not Available Not Avai lable Plavix 75 mg tablet Daily 05/07 completed Duration : 30 days;Jeffry quency: daily;Me dication Descript ion: clopidog rel; Dosage:1 ; Route:or al; refills: 0; Quantity :30 tablet Not Available Not Available Not Available modafinil 200 mg tablet Take 1/2 tablet by mouth twice daily 2023 active Not Available Not Available Not Avai lable tamsulosi n 0.4 mg capsule Take 1 capsule by mouth twice daily 2023 active Not Available Not Available Not Avai lable amlodipin e 10 mg tablet Take 1 tablet every day by oral route. active Not Available Not Available No t Available cyanocoba alvin (vit B-12) 1,000 mcg/mL injection solution Inject 1 mL every month by subcutan eous route. active Not Available Not Available No t Available aspirin 81 mg tablet Take 1 tablet every day by oral route. active no longer takes (05/29/20 24) Not Available Not Available Not Available hydrochlo rothiazid e 25 mg tablet Take 1 tablet every day by oral route. active Not Available Not Available No t Available mupirocin 2 % topical ointment Place topicall y in the nose bid x 10 days 12/23 completed Not Available Not Available Not Available losartan 100 mg tablet Take 1 tablet every day by oral route. active Not Available Not Available No t Available Adderall 10 mg tablet 1 pill each AM 07/12 completed Not Available Not Available Not Available Allergy (diphenhy dramine) 25 mg capsule Take 2 capsules every 4 hours by oral route. 05/07 completed Not Available Not Available Not Available Benicar HCT 40 mg-25 mg tablet Take 1 tablet every day by oral route. 05/07 completed Not Available Not Available Not Available rosuvasta tin 10 mg tablet Take 1 tablet every day by oral route. active Not Available Not Available No t Available Cialis 5 mg tablet 07/29 completed Not Available Not Available Not Available solifenac in 10 mg tablet Take 1 tablet by mouth once daily 2023 active Not Available Not Available Not Avai lable Vesicare 5 mg tablet TAKE ONE TABLET BY MOUTH ONCE DAILY 10/23 completed Not Available Not Available Not Available omeprazol e 05/31 completed Medicati on Descript ion: omeprazo le; refills: 0 Not Available Not Available Not Available clopidogr el active Not Available Not Available Not Available Benadryl 07/29 completed Not Available Not Available Not Available Klor-Con 07/29 completed Not Available Not Available Not Available Vitamin D3 active Not Available Not Available Not Available pantopraz ole active Not Available Not Available Not Available Benicar 04/17 completed Duration : 30 days;Med ication Descript ion: olmesart an; Route:or al; refills: 0; Quantity :30 tablet Not Available Not Available Not Available potassium Cl-calciu m phos-mag active Not Available Not Available Not Available Allergy Relief (cetirizi ne) active Not Available Not Available Not Available B12 active Not Available Not Availa ble Not Available dimethyl fumarate 240 mg capsule,d elayed release TAKE 1 CAPSULE TWICE A DAY 2023 active Not Available Not Available Not Avai lable Prostate Control 07/29 completed Not Available Not Available Not Available Vitals Date Recorded Body height Body mass index (BMI) Body weight Systolic blood pressure Diastolic blood pressure Provider Name and Address Organization Details Last Updated DateTime 01/16/2023 180.34 cm 32 kg/m2 386111.0 5 g 126 mm[Hg] 72 mm[Hg] Isidro Aguilar [facility] 3 07:58:21 Date Recorded Body height Body mass index (BMI) Body weight Heart rate Oxygen saturation Oxygen saturation in Arterial blood by Pulse oximetry Systolic blood pressure Diastolic blood pressure Provider Name and Address Organization Details Last Updated DateTime 4 180.34 cm 32.4 kg/m2 075270. 53 g 62 /min 96 % 96 % 138 mm[Hg] 84 mm[Hg] Simona Jacques [facility] 4 08:12:22 Date Recorded Body height Body mass index (BMI) Body weight Heart rate Oxygen saturation Oxygen saturation in Arterial blood by Pulse oximetry Systolic blood pressure Diastolic blood pressure Provider Name and Address Organization Details Last Updated DateTime 4 180.34 cm 32.3 kg/m2 488963. 94 g 70 /min 97 % 97 % 130 mm[Hg] 76 mm[Hg] Simona Jacques [facility] 4 08:49:10 Date Recorded Body height Body mass index (BMI) Body weight Provider Name and Address Organization Details Last Updated DateTime 02/07/2024 180.34 cm 32.1 kg/m2 155609.25 g Lissa Fisher [facility] 02/07/2024 14:52:40 Date Recorded Body height Body mass index (BMI) Body weight Heart rate Oxygen saturation Oxygen saturation in Arterial blood by Pulse oximetry Systolic blood pressure Diastolic blood pressure Provider Name and Address Organization Details Last Updated DateTime 4 180.34 cm 32.3 kg/m2 188234. 24 g 75 /min 96 % 96 % 126 mm[Hg] 70 mm[Hg] Aura Myeshaleslee [facility] 4 11:13:59 Social History Question Answer Notes LastModified by Organizat ion Details LastModified Time Tobacco Smoking Status Current Some Day [email or web address] 08:47:33 What Is Your Level Of Alcohol Consumption? Occasional [email or web address] Information not available 10/07/2016 What Is Your Level Of Caffeine Consumption? Moderate [email or web address] Information not available 10/07/2016 How Much Tobacco Do You Chew? None Information not available 05/27/2019 Which Illicit Or Recreational Drugs Have You Used? None Information not available 05/27/2019 Do You Or Have You Ever Used E-cigarettes Or Vape? Never Used Electronic Cigarettes Information not available 05/27/2019 What Is Your Occupation? [employer] Information not available 10/07/2016 Live Alone Or With Others? With Others Information not available 05/27/2019 Marital Status Informatio n not available 10/07/2016 What Was The Date Of Your Most Recent Tobacco Screening? 02/07/2024 [email or web address] Information not available 02/07/2024 At What Age Did You Start Smoking Tobacco? 22 Information not available 07/24/2023 Do You Or Have You Ever Used Smokeless Tobacco? Never Used Smokeless Tobacco Information not available 05/27/2019 How Much Tobacco Do You Smoke? 2 PPW Information not available 07/24/2023 On What Date Was Tobacco Cessation Counseling Provided? 02/09/2022 [email or web address] Information not available 02/09/2022 Sex: Unknown Functional Status None recorded. Mental Status None recorded. Family History Relationship Description Onset Age of this Age Resolved Age Notes LastModified by Organization Details LastModified Time Brother Diabetes mellitus [email or web address] Not available 2016 09:18:54 Brother Asthma [email or web address] Not available 05/07/2018 09:39:20 Sister Diabetes mellitus [email or web address] Not available 2016 09:18:54 Unspecified Relation Acute myocardial infarction [email or web address] Not available 10/07 09:19:04 Unspecified Relation Family history of stroke [email or web address] Not available 2016 09:19:31 Father Heart disease [email or web address] Not available 2016 09:19:14 Father Hypertensive disorder [email or web address] Not available 2016 09:19:22 Medical History Condition Response Anesthesia Complications N Diabetes N Bleeding Disorder Y Cancer N Reflux/GERD Y Sleep Apnea Y High Cholesterol Y Hypertension Y Immunizations Vaccine Type Date Status Note Provider Nam e and Address Organization Details Recorded Time Pneumococcal Conjugate, unspecified formulation 5 completed Not Available [facility] 05/11/2022 18:23:07 influenza, unspecified formulation 6 completed Not Available [facility] 05/11/2022 18:23:07 Influenza, split virus, quadrivalent, preservative 7 completed Not Available [facility] 05/11/2022 18:23:07 influenza, unspecified formulation 8 completed Not Available [facility] 05/11/2022 18:23:07 Influenza, split virus, quadrivalent, preservative 9 completed Not Available [facility] 05/11/2022 18:23:07 Influenza, split virus, quadrivalent, preservative 0 completed Not Available [facility] 05/11/2022 18:23:07 SARS-COV-2 (COVID-19) vaccine, UNSPECIFIED 1 completed Lissa Fisher [facility] 02/07/2024 14:52:43 Past Encounters Encounter ID Performer Location Encounter Start Date Encounter Closed Date Diagnosis/Indication Diagnosis SNOMED-CT Code Diagnosis ICD10 Code Diagnosis Note [id number] NIRMALA TAYLOR MD [facility] [address] [place] [address] 04/17/2017 10:47:46 04/17/2017 12:09:40 Multiple sclerosis 44987018 G35 Lack of energy 848569251 R53.83 Long-term drug therapy 098682275 Z79.593 [id number] NIRMALA TAYLOR MD [facility] [address] [place] [address] 10/23/2017 08:55:22 10/23/2017 09:38:03 Multiple sclerosis 56816792 G35 Long-term drug therapy 906229992 Z79.899 Coronary atherosclerosis 028352983 I25.10 Stented co ronary artery 588702919 Z95.5 Intentiona l weight loss 815360771 R63.8 Ex-smoker 2430286 Z87.89 1 Foot pain 74477508 M79.6 72 M79.727 [id number] NIRMALA TAYLOR MD [facility] [address] [place] [address] 04/23/2018 08:59:17 04/23/2018 09:48:23 Multiple sclerosis 84454059 G35 Long-term drug therapy 683324376 Z79.899 Fatigue 03832039 R53.83 Anterior epistaxis 89710 4002 R04.0 [id number] MD [address] [place] [address] 05/07/2018 09:17:47 05/07/2018 13:51:30 Anterior epistaxis 067016586 R04.0 [id number] NIRMALA TAYLOR MD [facility] [address] [place] [id number] 05/14/2018 08:19:45 05/14/2018 09:15:00 Multiple sclerosis 74301924 G35 Lack of energy 424611962 R53.83 Vitamin B deficiency 479 13431 E53.9 Long-term drug therapy 300383765 Z79.899 Chronic fa tigue syndrome 67500915 R53.82 Vitamin D deficiency 347 30377 E55.9 [id number] MD [address]ON [address] [place] [address] 06/21/2018 08:09:55 06/21/2018 09:28:03 Anterior epistaxis 673508682 R04.0 Noise-marie ana hearing loss 37153151 H83.3X9 Asymmetric al sensorineural hearing loss 563493415 H90.5 [id number] YASHIRA LYNN [place] [facility] [address] [place] [address] 06/21/2018 08:57:34 06/21/2018 10:04:42 Dysfunction of eustachian tube 73748038 H69.92 Sensorineu ral hearing loss of bilateral ears 906917969 H90.3 L>R Tinnitus of left ear 854 9449329 106 H93.12 [id number] YASHIRA LYNN [facility] [address] [place] [address] 07/09/2018 09:07:13 07/09/2018 09:36:37 [id number] NIRMALA TAYLOR MD [facility] [address] [place] [address] 07/16/2018 08:11:47 07/16/2018 08:56:46 Multiple sclerosis 17369611 G35 Chronic fa tigue syndrome 87349203 R53.82 Long-term drug therapy 744731290 Z79.899 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 030320411 H54.60 Vitamin D deficiency 347 32976 E55.9 [id number] NIRMALA TAYLOR MD [facility] [address] [place] [address] 09/10/2018 08:13:41 09/10/2018 09:24:19 Multiple sclerosis 99998536 G35 Long-term drug therapy 325859685 Z79.899 Vitamin D deficiency 347 00068 E55.9 Lack of energy 499507390 R53.83 [id number] NIRMALA TAYLOR MD NEUROLOGY [address] [place] [address] 05/27/2019 08:25:41 05/27/2019 09:33:52 Multiple sclerosis 09119199 G35 Lack of energy 746141113 R53.83 Vitamin B deficiency 479 35999 E53.9 [id number] [place] [address] [place] [address] 12/24/2019 14:14:25 12/24/2019 15:19:31 Multiple sclerosis 95266046 G35 Lack of energy 279239939 R53.83 Vitamin B deficiency 479 25832 E53.9 [id number] MELINA SPRAGUE MD [facility] [address] [place] [address] 01/24/2020 13:52:33 01/24/2020 14:56:48 Neurogenic dysfunction of urinary bladder 515254717 N31.9 continue generic Vesicare 10 mg Benign pro static hyperplasia with outflow obstruction 907822958 N40.1 continue tamsulosin follow-up 1 year [id number] NIRMALA TAYLOR MD NEUROLOGY [place] [address] 06/08/2020 07:51:56 06/08/2020 09:01:04 Multiple sclerosis 64933404 G35 Lack of energy 872071077 R53.83 Vitamin B deficiency 479 15173 E53.9 [id number] MD [facility] [address] [place] [address] 07/29/2020 13:49:39 07/29/2020 14:36:58 Groin mass 115275713 R19.00 after discussion we have started actually with a CT scan and try to determine where this is a hernia or additional masseffect . We will get an abdomen and pelvis CT scan without contrast. I'll check the results Urinary tr act infectious disease 21875218 N39.0 slight pyuria. We will send for culture and sensitivit y [id number] MELINA SPRAGUE MD [facility] [address] [place] [address] 07/31/2020 14:32:57 07/31/2020 15:22:07 Hemorrhage of kidney 85107934 N28.89 Left kidney hemorrhage Stable Increased frequency of urination 941038403 R35.0 He will continue on medical therapy for bladder instabilit y secondary to MS. Left inguinal hernia 236 087780 K40.90 We will refer him for further evaluation . [id number] Maritza Velarde [facility] [address] [place], [place] [id number] 11/02/2020 10:29:49 11/02/2020 11:08:56 Blood in urine 72050599 R31.9 Hemorrhage of kidney 955 23659 N28.89 Left kidney hemorrhage Stable Neurogenic urinary bladder 966570534 N31.9 Benign pro static hyperplasia with outflow obstruction 720556857 N40.1 continue tamsulosin follow-up 1 year [id number] NIRMALA TAYLOR MD NEUROLOGY [place] [address] 12/07/2020 07:53:13 12/07/2020 08:20:18 Multiple sclerosis 29816735 G35 Lack of energy 860008394 R53.83 Vitamin B deficiency 479 72086 E53.9 Long-term current use of drug therapy 257726188 Z79.899 Vitamin D deficiency 347 20092 E55.9 Chronic fa tigue syndrome 43449721 R53.82 [id number] MD [facility] [address] [place] [address] 05/31/2021 11:12:40 05/31/2021 12:21:58 Benign prostatic hyperplasia with outflow obstruction 747512584 N40.1 continue tamsulosin twice a day follow-up 6 months with PSA and prostate exam and then moving anteriorly follow Neurogenic dysfunction of urinary bladder 958073397 N31.9 continue generic Vesicare 10 mg [id number] [place] [address] [place] [address] 1 02/09/2022 07:59:44 02/09/2022 10:34:12 Multiple sclerosis 06737219 G35 High risk medication monitoring indicated 8378536646 7072136 Z76.89 [id number] MELINA SPRAGUE MD [facility] [address] [place], [place] [id number] 0 02/09/2022 13:25:17 02/15/2022 16:37:18 Neurogenic dysfunction of urinary bladder 796050033 N31.9 continue generic Vesicare 10 mg Benign pro static hyperplasia with outflow obstruction 066697941 N40.1 continue tamsulosin twice a day follow-up 1 year with PSA [id number] NIRMALA TAYLOR MD NEUROLOGY [place] [address] 05/09/2022 08:52:32 05/09/2022 10:38:02 Multiple sclerosis 80479595 G35 Chronic fa tigue syndrome 75817857 R53.82 [id number] NIRMALA TAYLOR MD NEUROLOGY [place] [address] 07/12/2022 07:52:14 07/12/2022 09:26:58 Multiple sclerosis 33606670 G35 Lack of energy 745722836 R53.83 Chronic fa tigue syndrome 08592200 R53.82 [id number] NIRMALA TAYLOR MD NEUROLOGY [place] [address] 01/16/2023 07:48:02 01/17/2023 04:32:12 Multiple sclerosis 45241692 G35 Long-term current use of drug therapy 296019866 Z79.899 [id number] NIRMALA TAYLOR MD NEUROLOGY [place] [address] 07/24/2023 08:03:15 07/25/2023 04:18:46 Multiple sclerosis 80586100 G35 Long-term current use of drug therapy 372502766 Z79.899 [id number] NIRMALA TAYLOR MD [place] [place] [address] 1 01/22/2024 08:10:38 01/23/2024 04:29:49 Multiple sclerosis [id number] G35 Long-term current use of drug therapy [id number] Z79.899 High risk medication monitoring indicated [id number] Z76.89 [id number] MELINA SPRAGUE MD [facility] [address] 0 02/07/2024 14:04:29 02/07/2024 15:26:45 Neurogenic dysfunction of urinary bladder [id number] N31.9 continue generic Vesicare 10 mg Lower urin kadie tract symptoms due to benign prostatic hypertrophy 0908658013 9101 N40.1 Follow-up 1 year with PSA [id number] NIRMALA TAYLOR MD NEUROLOGY [address] [place] [address] 05/29/2024 10:50:59 06/03/2024 14:57:36 Multiple sclerosis 60180547 G35 Chronic fa tigue syndrome 35568357 R53.82 Long-term current use of drug therapy 324640163 Z79.899 High risk medication monitoring indicated [id number] 3690692 Z76.89 Lack of energy 162411579 R53.83 Health Concerns Section Related Observation LastModified by Organization Detai ls LastModified Time None Recorded Concern Status LastModified by Organization Details LastModified Time None Recorded Advance Directives Directive None Recorded Payers Encounter Date Sequence Insurance Name Policy Number Policy Steel Covered Member ID Steel Member ID Guarantor Name 01/16/2023 1 [place] [id number] Nirmala Irizarrye [id number] Nirmala Daviesgle 07/24/2023 1 [place] [id number] Nirmala Hackett Bushra [id number] Nirmala Hackett Bushra 01/22/2024 1 [place] [id number] Nirmala Daviesgle [id number] Nirmala Hackett Bushra 02/07/2024 1 [place] [id number] Nirmala Daviesgle [id number] Nirmala Hackett Bushra 05/29/2024 1 [place] [id number] Nirmala Irizarrye [id number] Nirmala Tomlinson Notes Date Note Type Note Provider Name and Address Organization Details Recorded Time 01/16/2023 text/html Recheck for Mult iple [id number] year old man Multiple SclerosisOnset at approximately age 39. His first attack was vision loss of OS, optic neuritis. He is free of exacerbation. Disease is currently controlled with the use of Dimethyl Fumarate 240mg x1, BID He tolerates the medication well, his only side effect is an occasional hot flash. Current Medications:Dimethyl Fumurate 240 mgModafinil 200 mg NIRMALA TAYLOR MD [address] [place] [address], [phone], [facility] 01/16/2023 08:23:26 07/24/2023 text/html Recheck for Mult iple [id number] year old man. Multiple SclerosisOnset at approximately age 39. His first attack was vision loss of OS, due to optic neuritis. He is free of exacerbation. He has no symptoms of MS with the exception of the vision loss of OS and slight fatigue. He comments that he has some unsteadiness upon rising from his chair but contributes this to having a busy day. Disease is currently controlled with the use of Dimethyl Fumarate 240mg x1, BID. He tolerates the medication well with an occasional hot flash. Recent Blood Test Results (01/16/2023)--He reports he had blood testing performed last week, I do not have those results today. The patient will have these blood results sent to our office. Vitamin D25-oh, total- 76 CMP:Glucose -105Creatinine- 0.77UN/Creatinine Ratio-16Sodium -141Potassium- 3.2Cxnxgnkm5 107Carbon Dioxide -21Alkaline Makdctpbsdh-13LSZ-16 FOD-47IWR-212 CBC:WBC-5.3RBC- 5.05Hemoglobin -15.4Hematocrit-45.2 [id number] [facility]- 134Lymphocyte, absolute- 1.2% lymphocytes-21.9Mono cyte, absolute- 0.2%monocytes-12.5 Current Medications:Dimethyl Fumurate 240 mgModafinil 200 mg NIRMALA TAYLOR MD [address] [place] [address], [phone], [facility] 07/24/2023 13:03:21 01/22/2024 text/html Recheck for Mult iple [id number] year old man, 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 Multiple SclerosisOnset at approximately age 39. Disease controlled by dimethyl fumarate. Free of exacerbations. Recent Blood Test Results (01/15/2024) CMP:Glucose -87Creatinine- 0.70BUN-14Sodium -551SGF-20NEC-59PDE- 114 CBC:WBC-5.3Hemoglobi n -16Hematocrit-48.5[place]- 168Lymphocyte, absolute- 1.3 Vitamin D25-oh, total- 76 (01/16/2023) Current Medications:Dimethyl Fumurate 240 mg NIRMALA TAYLOR MD [address] [place] [address], [phone], [facility] 01/22/2024 10:08:43 02/07/2024 text/html Patient is here in follow-up last seen 18 months ago. He continues on medical therapy for neurogenic bladder for MAS. He continues to do well. He also takes tamsulosin twice daily. He typically has nocturia x 2-3 satisfied. PSA today was 0.48. 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 Multiple SclerosisOnset at approximately age 39. He is doing well No exacerbation He has chronic fatigue and is very concerned that modafinil control symptoms He is very concerned that a warning letter from [employer] described increased risk for ischemic heart disease and valvular heart disease as well as LVH in persons with using modafinil. Today he states that he is well aware of risk but states he he needs modafinil 2 have better function He states that he accepts that risk and wants to take modafinil After much discussion I discussed that he try half tablet in the morning and half tablet in the afternoon he agrees No other health issue Disease controlled by dimethyl fumarate. NIRMALA TAYLOR MD [address] [place] [address], [phone], [facility] 05/30/2024 08:10:33
== END 2024-10-16 23:59 | disposition home or self-care (01) ==
LOC: LAB.DROPOF 10-17 11:09
PROVIDERS: PCP Internal Medicine; Visit Provider Internal Medicine
DX: E78.5 Hyperlipidemia, unspecified (principal); I10 Essential (primary) hypertension; G35 Multiple sclerosis; F17.210 Nicotine dependence, cigarettes, uncomplicated
CPT/HCPCS: 80053; 80061; 85025

== ENCOUNTER 2025-02-10 12:44 | Outpatient (CLI) | payer BC, SELFPAY ==
--- OUTSIDE RECORDS SUMMARY | 2025-02-10 12:46 | XMS_ITS | Encounter Summary ---
Author Organization [facility] ([place], [place], [place], [place]) Address [address] [place] [address] Care Team Providers Care Financial Analyst Accountant Name Role Phone Unavailable Primary Care Provider Unavailabl e Encounter Details Date Type Department Care Team (Late st Contact Info) Description 09/08/[address] [facility] Family Medicine [address] [place] [address] ProviderXimena MD [address] [place] [address] Social History Tobacco Use Types Packs/Day Years Used Date Smoking Tobacco: Never Assessed Sex and Gender Information Value Date Recorded Sex Assigned at Not on file Legal Sex Male 7:16 PM CDT Gender Identity Not on file Sexual Orientation Not on file documented as of this encounter Miscellaneous Notes * Cerner Conversion Note - Ximena Jackson MD - 09/08/2020 12:16 PM CDT [facility] Main OR IntraOp Summary Primary Physician: VIRGEN LEIVA MD-SUR Finalized Date/Time: 09/09/20 16:11:09 Pt. Name: NIRMALA WIGGINSO.B./Sex: 1960 Male Med Rec #: [id number] Physician: VIRGEN LEIVA MD-SUR Financial #: [id number] Pt. Type: O Room/Bed: Admit/Disch: 09/08/20 08:09:00 - 09/08/20 15:50:00 Institution: [facility] IntraOp Case Attendance Entry 1 Entry 2 Entry 3 Case Attendee VIRGEN LEIVA MD-SUR STAFFORD, WHITNEY, NA RHYNE, HEATHER, MD-QUINTON Role Performed Surgeon/Proceduralist, BIKE ASSEMBLER/Nurse Moisture Meter Reader Anesthesiologist of First Record Time In 09/08/20 11:48:00 09/08/20 11:48:00 09/08/20 11:48:00 Time Out 09/08/20 13:39:00 09/08/20 13:39:00 09/08/20 13:39:00 Procedure Hernia Repair Inguinal Hernia Repair Inguinal Hernia Repair Inguinal Robotic(Left) Robotic(Left) Robotic(Left) Other Attendee Superficial Wound Closed By: Last Modified By: Dino Loaiza, Dino Rhodes, Dino Rhodes, LUCAS 09/08/20 13:39:44 09/08/20 13:39:44 09/08/20 13:39:44 Entry 4 Entry 5 Entry 6 Case Attendee MONICA BASURTO Hazel, RN Pantano, Scott, LUCAS Role Performed Supervisor Engine Repair, First Soda Jerker, First Soda Jerker, First Time In 09/08/20 11:48:00 09/08/20 11:48:00 09/08/20 12:00:00 Time Out 09/08/20 13:39:00 09/08/20 12:12:00 09/08/20 13:39:00 Procedure Hernia Repair Inguinal Hernia Repair Inguinal Hernia Repair Inguinal Robotic(Left) Robotic(Left) Robotic(Left) Other Attendee Superficial Wound Closed By: Last Modified By: Dino Loaiza RN Pantano, Scott, Dino Rhodes, LUCAS 09/08/20 13:39:44 09/08/20 13:39:44 09/08/20 13:39:44 Entry 7 Entry 8 Entry 9 Case Attendee BRITANY REES SCRUB Adams, Derrico, -SSI CODY BARAHONA MD-ANS TECH Role Performed Scrub, First Traffic Operations Engineer, Ancillary Anesthesiologist Time In 09/08/20 11:48:00 09/08/20 11:48:00 09/08/20 12:28:00 Time Out 09/08/20 12:46:00 09/08/20 13:39:00 09/08/20 13:39:00 Procedure Hernia Repair Inguinal Hernia Repair Inguinal Hernia Repair Inguinal Robotic(Left) Robotic(Left) Robotic(Left) Other Attendee LUNCH Superficial Wound Closed By: Last Modified By: Dino Loaiza, Dino Rhodes, Dino Rhodes RN 09/08/20 13:39:44 09/08/20 13:39:44 09/08/20 13:39:44 Entry 10 Entry 11 Case Attendee DASH WHITE Janie, LUCAS Role Performed Scrub, First Soda Jerker, First Time In 09/08/20 12:45:00 09/08/20 13:05:00 Time Out 09/08/20 13:39:00 09/08/20 13:39:00 Procedure Hernia Repair Inguinal Hernia Repair Inguinal Robotic(Left) Robotic(Left) Other Attendee BREAK RELIEF Superficial Wound Closed By: Last Modified By: Dino Loaiza, Dino Rhodes, LUCAS 09/08/20 13:39:44 09/08/20 13:39:44 [facility] IntraOp Case Attendance Audit 09/08/20 13:39:44 [employer] Consultant: IVÁNS Modifier: PANTANOS 1 <+> Time Out 1 <*> Procedure Hernia Repair Inguinal Robotic(Left) 2 <+> Time Out 2 <*> Procedure Hernia Repair Inguinal Robotic(Left) 3 <+> Time Out 3 <*> Procedure Hernia Repair Inguinal Robotic(Left) 4 <+> Time Out 4 <*> Procedure Hernia Repair Inguinal Robotic(Left) 5 <*> Procedure Hernia Repair Inguinal Robotic(Left) 6 <+> Time Out 6 <*> Procedure Hernia Repair Inguinal Robotic(Left) 7 <*> Procedure Hernia Repair Inguinal Robotic(Left) 8 <+> Time Out 8 <*> Procedure Hernia Repair Inguinal Robotic(Left) 9 <+> Time Out 9 <*> Procedure Hernia Repair Inguinal Robotic(Left) 10 <+> Time Out 10 <*> Procedure Hernia Repair Inguinal Robotic(Left) 11 <+> Time Out 11 <*> Procedure Hernia Repair Inguinal Robotic(Left) 09/08/20 13:24:43 [employer] Consultant: PANTANOS Modifier: PANTANOS <+> 11 Case Attendee <+> 11 Role Performed <+> 11 Time In <+> 11 Procedure <+> 11 Other Attendee 09/08/20 12:46:14 [employer] Consultant: PANTANOS Modifier: PANTANOS 7 <+> Time Out 7 <*> Procedure Hernia Repair Inguinal Robotic(Left) 09/08/20 12:45:54 [employer] Consultant: PANTANOS Modifier: PANTANOS <+> 9 Case Attendee <+> 9 Role Performed <+> 9 Time In <+> 9 Procedure <+> 9 Other Attendee <+> 10 Case Attendee <+> 10 Role Performed <+> 10 Time In <+> 10 Procedure 09/08/20 12:22:54 [employer] Consultant: PANTANOS Modifier: PANTANOS <+> 1 Procedure 2 <+> Time In 2 <*> Procedure Hernia Repair Inguinal Robotic(Left) 3 <+> Time In 3 <*> Procedure Hernia Repair Inguinal Robotic(Left) 4 <+> Time In 4 <*> Procedure Hernia Repair Inguinal Robotic(Left) 5 <+> Time In 5 <*> Procedure Hernia Repair Inguinal Robotic(Left) 6 <*> Procedure Hernia Repair Inguinal Robotic(Left) 7 <+> Time In 7 <*> Procedure Hernia Repair Inguinal Robotic(Left) 8 <+> Time In 8 <*> Procedure Hernia Repair Inguinal Robotic(Left) [facility] IntraOp Case Times Entry 1 Patient In Room Time 09/08/20 11:48:00 Out Room Time 09/08/20 13:39:00 Anesthesia Start Time 09/08/20 11:48:00 Stop Time 09/08/20 13:39:00 Surgery / Procedure Times Start Time 09/08/20 12:16:00 Stop Time 09/08/20 13:24:00 Last Modified By: Dino Loaiza RN 09/08/20 13:39:29 [facility] IntraOp Case Times Audit 09/08/20 13:39:29 [employer] Consultant: PANTANOS Modifier: PANTANOS <+> 1 Out Room Time <+> 1 Stop Time 09/08/20 13:29:28 [employer] Consultant: PANTANOS Modifier: PANTANOS <+> 1 Stop Time 09/08/20 12:16:29 [employer] Consultant: PANTANOS Modifier: PANTANOS <+> 1 Start Time [facility] IntraOp Cautery Entry 1 ESU Identification Cautery Type Monopolar ESU ID Number [id number] ID Type Hospital Number Cautery Settings Cut Setting 3 Coag Setting 3 ESU Grounding Pad Ground Pad Type Adult Grounding Pad Site Right thigh Grounding Pad Faye Mcleod, LUCAS Applied By Grounding Pad Site Warm, Dry, Intact Skin Condition Before Cautery Grounding Pad Site Unchanged Skin Condition After Cautery Last Modified By: Dino Loaiza RN 09/08/20 12:18:24 [facility] IntraOp Communication Entry 1 Communication To Family/Significant other Communication By Faye Mcleod RN Date and Time 09/08/20 12:10:00 Last Modified By: Dino Loaiza RN 09/08/20 12:17:59 [facility] IntraOp Counts Verification Entry 1 Procedure Hernia Repair Inguinal Robotic(Left) Count Info Count Type Sponge, Sharps, Miscellaneous Counts Verification Baseline/pre-procedure Sequence Count Results Correct, surgeon notified Counts Performed By Count Performed By BRITANY REES SCRUB (Scrub) TECH Count Performed By Dino Loaiza RN (RN) Last Modified By: Dino Loaiza RN 09/08/20 12:17:33 [facility] IntraOp Counts Final Entry 1 Procedure Hernia Repair Inguinal Robotic(Left) Final Count Info Count Type Sponge, Sharps, Miscellaneous Counts Verification Skin Closure/end of Sequence procedure Count Results Correct, surgeon notified Counts Performed By Count Performed By DASH WHITE (Scrub) Count Performed By Marilia Baptiste RN (RN) Last Modified By: Dino Loaiza RN 09/08/20 13:24:54 [facility] IntraOp Counts Final Audit 09/08/20 13:24:54 [employer] Consultant: PANTANOS Modifier: PANTANOS 1 <*> Procedure Hernia Repair Inguinal Robotic(Left) 1 <*> Count Performed By (RN) Dino Loaiza RN 09/08/20 12:48:53 [employer] Consultant: PANTANOLauren Modifier: PANTANOS 1 <*> Procedure Hernia Repair Inguinal Robotic(Left) 1 <*> Count Performed By (Scrub) BRITANY REES SCRUB TECH 1 <+> Count Performed By (RN) [facility] IntraOp Departure from OR Entry 1 Integumentary Assessment Integumentary WDL Assessment WDL Transfer/Handoff Transfer to PACU Phase I Handoff Method Bedside/Face to face, Online nursing summary Post-op Transport Stretcher/Gurney Via Patient Transport OMNICA BASURTO, Accompanied by CYRUS FOSS NA Last Modified By: Dino Loaiza RN 09/08/20 12:20:24 [facility] IntraOp Dressing and Packing Entry 1 Type Dressing Location OPSITE Wound Dressing Item Skin Closure Glue Applied By MONICA BASURTO Last Modified By: Dino Loaiza RN 09/08/20 12:20:17 [facility] IntraOp Fire Risk Assessment Entry 1 Fire Info Surgical Site or 0- No Incision Above the Xyphoid Open O2 Source 0- No (Mask or Cannula) Available Ignition 1- Yes (ESU, Laser, Light Source) Fire Risk 1 Assessment Score Fire Score Fire Risk Yes Assessment Complete Fire Risk Faye Mcleod RN Assessment Verified By Fire Risk 09/08/20 12:00:00 Assessment Verified Date/Time Fire Risk Standard Fire Yes Safety Precautions Followed Last Modified By: Dino Loaiza RN 09/08/20 12:18:34 [facility] IntraOp General Case Vp Genetic 1 Case Information OR OR 13 [facility] Case Level 1 Room Verified Yes Wound Class I - Clean Specialty SN General ASA Class 2 Diagnosis Preop Diagnosis LEFT INGUINAL HERNIA Postop Same As Preop Yes Postop Diagnosis LEFT INGUINAL HERNIA Last Modified By: Dino Loaiza RN 09/08/20 12:19:22 [facility] IntraOp Implant Log Entry 1 Type Implant (Synthetic) Implant Log Implant Type Mesh Implant MESH MIR 3D MAX LG Identification [id number] Description Implant Quantity 1 Implant Site LEFT INGUINAL Implant [id number] Identification Lot Number Implant Cr Bard:Davol Identification Loader Name: Implant [id number] Identification Catalog Number Implant Has an Yes Expiration Date Implant Expiration 05/23/25 Date Tissue Implant Last Modified By: Dino Loaiza RN 09/08/20 12:48:32 [facility] IntraOp Intraoperative Assessment Entry 1 Handoff Method Online nursing summary Valid History / Yes Physical in Chart Preoperative Yes Checklist Reviewed/Evaluated Allergies Reviewed Yes Patient is Latex No Sensitive Level of WDL Consciousness (WDL = Alert, Oriented to Person, Place, and Time) Skin Assessment No Verified Present Upon IVs Arrival to OR Last Modified By: Dino Loaiza RN 09/08/20 12:17:10 [facility] IntraOp Intraoperative Equipment Entry 1 Type Monitoring Equipment Equipment Samara Suction System Intraop Monitoring Electrocardiogram Three lead placement (ECG) Electrode Placement Blood Pressure Non-Invasive BP Device Source Blood Pressure Arm, left upper Location Pulse Oximeter Hand, right Probe Site Antiembolic Devices Antiembolic Devices Sequential compression device, knee high Antiembolic Device Bilateral Location Antiembolic Device SCD'S ON AND WORKING Setting PRIOR TO INDUCTION Scopes Photo/Video Documentation Last Modified By: Dino Loaiza RN 09/08/20 12:20:07 [facility] IntraOp Medication Admin Entry 1 Medication/Irrigant Marcaine 0.5% w/ epinephrine 1:200,000 30ml vial - [id number] Time Administered 09/08/20 12:20:00 Route of LOCAL Administration Dose Dose 10 Unit of Measure ml Administered By VIRGEN LEIAV MD-SUR Procedure Irrigation Last Modified By: Dino Loaiza RN 09/08/20 12:20:56 [facility] IntraOp Patient Positioning Entry 1 Procedure Hernia Repair Inguinal Robotic(Left) Body Position Supine Left Arm Position Tucked and padded at side Right Arm Position Tucked and padded at side Left Leg Position Uncrossed, parallel Right Leg Position Uncrossed, parallel Feet Uncrossed Yes Pressure Points Yes Checked Positioning Devices Head Rest, Safety Strap, Thighs, Pad, Arm Device Position FOAM POSITIONING MATTRESS Positioned By CYRUS FOSS NA, Faye Mcleod, LUCAS, MONICA BASURTO, VIRGEN LEIVA MD-ASHLI Position Verified Positioning Yes Verified by Anesthesia Positioning Yes Verified by Surgeon Last Modified By: Dino Loaiza RN 09/08/20 12:22:51 [facility] IntraOp Sign In Entry 1 Patient, Site, Yes Procedure Identified Surgical Consent Yes Confirmed Relevant Surgical Yes Documents Available Surgical Site Yes Marked by person performing procedure Anesthesia Machine Yes Check Completed Medication Checks Yes Completed Allergies No Airway Difficult Yes Airway/Aspiration Risk Difficult Yes Airway/Aspiration Intervention Equipment Available Blood Loss Risk No Blood Loss No Intervention Equipment Prepared and Ready Blood Identifiers Not applicable Verified Per Policy Hypothermia Risk Yes Warming Measures Yes Taken Last Modified By: Dino Loaiza RN 09/08/20 12:23:02 [facility] IntraOp Sign Out Entry 1 RN Confirmation Surgical Yes Procedure(s) Identified Instrument, Sponge Yes and Sharps Counts Correct/Documented Equipment Problems N/A Documented Specimen Labeled N/A Correctly Urinary Catheter N/A Documented in IView Cho Patient Yes Recovery Concerns Reviewed with Anesthesia Provider, Surgeon and RN Cho Patient Yes Management Concerns Reviewed with Anesthesia Provider, Surgeon and RN Safety Checklist Yes Elements Complete? RN Sign Out Dino Loaiza RN Signature RN Sign Out 09/08/20 13:39:00 Signature Date/Time Plan of Care Outcome - Fire Risk OUTCOME STATEMENT: Goal met Patient is free from injury related to surgical fire Plan of Care Outcome - Pt Positioning OUTCOME STATEMENT: Goal met Absence of signs and symptoms of positioning injury. Plan of Care Outcome - Skin Prep OUTCOME STATEMENT: Goal met Intraoperative care is consistent with measures to prevent infection Plan of Care Outcome - Xray/Images OUTCOME STATEMENT: N/A Absence of observable signs or symptoms of radiation injury Plan of Care Outcome - Counts OUTCOME STATEMENT: Goal met Absence of signs and symptoms of injury related to extraneous objects Last Modified By: Dino Loaiza RN 09/08/20 13:39:41 [facility] IntraOp Sign Out Audit 09/08/20 13:39:41 [employer] Consultant: JORGE Modifier: JORGE <+> 1 RN Sign Out Signature Date/Time [facility] IntraOp Skin Prep Entry 1 Procedure Hernia Repair Inguinal Robotic(Left) Prescribed Yes Pre-Surgical Prep Completed Prep Area ABDOMEN AND BILATERAL GROINS Intraop Prep Prep Agents Chloraprep Prep by VIRGEN LEIVA MD-ASHLI Hair Removal Methods No hair removal performed Last Modified By: Dino Loaiza RN 09/08/20 12:19:45 [facility] IntraOp Skin Prep Audit 09/08/20 12:19:45 [employer] Consultant: JORGE Modifier: JORGE 1 <+> Methods 1 <*> Procedure Hernia Repair Inguinal Robotic(Left) [facility] IntraOp Surgical Procedures Entry 1 Procedure Hernia Repair Inguinal Robotic Modifiers Left Additional (ROBOTIC ASSISTED LT Procedure INGUINAL HERNIA REPAIR Description WITH MESH) Primary Procedure Yes Primary Surgeon VIRGEN LEIVA MD-ASHLI Start 09/08/20 12:16:00 Stop 09/08/20 13:24:00 Anesthesia Type General Specialty SN General Wound Class I - Clean Last Modified By: Dino Loaiza RN 09/08/20 13:39:34 [facility] IntraOp Surgical Procedures Audit 09/08/20 13:39:34 [employer] Consultant: JORGE Modifier: JORGE <+> 1 Stop [facility] IntraOp Temp Regulation Devices Entry 1 Temp Regulation Temperature Forced Air Warming Regulation Device device, Warm blankets Temperature Upper body Regulation Site Temperature Device SET AND MONITORED BY Setting ANESTHESIA Temperature CYRUS FOSS NA Regulation Device Applied by Last Modified By: Dino Loaiza RN 09/08/20 12:20:12 [facility] IntraOP Time Out Entry 1 Procedure to be Hernia Repair Inguinal Performed Robotic(Left) Time Out Time Out Pause Time 09/08/20 12:16:00 All activity Yes suspended (unless life threatening emergency) Team Verbally Correct patient Confirms Information identity, Correct side and site are marked, Consent form is present and accurate, Agreement on the procedure to be done, Correct patient position, Relevant images/results properly labeled/appropriately displayed, Confirm antibiotics have been administered, Confirm the skin prep has dried, Confirm prosthesis/implant/devic e is present, Performed in location of procedure after prepped/draped Antibiotic Yes Prophylaxis Administered Or In Progress Within the Last 60 Minutes Beta Virgil N/A Administered Venous N/A Thromboembolism Prophylaxis Required Anticipated Critical Events Surgeon None expected, Critical or unexpected steps, Anticipated blood loss, Special equipment need, Special instrumentation need Anesthesia Provider Patient specific concerns, None expected Nursing Assures Sterility of instruments, Equipment concerns or issues, Implant Availability Essential Imaging Yes Labeled and Displayed Last Modified By: Dino Loaiza RN 09/08/20 12:17:01 [facility] IntraOP Time Out Audit 09/08/20 12:17:01 [employer] Consultant: JORGE Modifier: TIMOTHYANOLauren <+> 1 Beta Virgil Administered <+> 1 All activity suspended (unless life threatening emergency) <+> 1 Venous Thromboembolism Prophylaxis Required <+> 1 Antibiotic Prophylaxis Administered Or In Progress Within the Last 60 Minutes <+> 1 Surgeon <+> 1 Anesthesia Provider <+> 1 Nursing Assures <+> 1 Essential Imaging Labeled and Displayed <+> 1 Procedure to be Performed <+> 1 Team Verbally Confirms Information Case Comments <None> Finalized By: TARAN GERARD Document Signatures Signed By: Dino Loaiza RN 09/08/20 13:39 TARAN GERARD 09/09/20 16:11 Unfinalized History Date/Time Username Reason for Unfinalizing Freetext Reason for Unfinalizing 09/09/20 16:10 [id number] Correct Billing Electronically signed by Tiffany [facility] Conversion Zigzag Topstitcher Cerner at 10/12/2022 8:52 PM CDT documented in this encounter Plan of Treatment Not on file documented as of this encounter Visit Diagnoses Not on filedocumented in this encounter
--- OUTSIDE RECORDS SUMMARY | 2025-02-10 12:46 | XMS_ITS | Encounter Summary ---
Author Organization [employer] ([place], [place], [place], [place]) Address [address] [place] [address] Care Team Providers Care Book Agent Name Role Phone Unavailable Primary Care Provider Unavailabl e Encounter Details Date Type Department Care Team (Late st Contact Info) Description 09/08/2020 Transcribed Document [facility] [place] Family Medicine [address] [place] [address] ProviderXimena MD [address] [place] [address] Social History Tobacco Use Types Packs/Day Years Used Date Smoking Tobacco: Never Assessed Sex and Gender Information Value Date Recorded Sex Assigned at Not on file Legal Sex Male 7:16 PM CDT Gender Identity Not on file Sexual Orientation Not on file documented as of this encounter Miscellaneous Notes * Cerner Conversion Note - Ximena Jackson MD - 09/08/2020 3:36 PM CDT [place] [address] NIRMALA WIGGINS :1960 Visit Time:09/08/2020 What to do next Your Diagnosis Unilateral inguinal hernia, without obstruction or gangrene, not specified as recurrent, Unilateral inguinal hernia, without obstruction or gangrene, not specified as recurrent Instructions From Your Care Team Diet after Discharge: regular diet as tolerated. Avoid high fat/greasy foods. Do not drink any alcoholic beverages, Drink at least 8-10 glasses of water per day Activity after Discharge: As tolerated, Rest and relax today, No strenuous activity for 3 weeks. walk 3-5x/day. Lifting Restrictions: no lifting heavier than 10lbs for 3 weeks. Driving after Discharge: Do not drive until 24 hours after no longer taking pain medications May Return to Work/School: when off of pain medication. Showering/Bathing: May shower in 24 hours. No tub bathing, soaking or swimming. do not let water directly hit incisions. do not scrub. pat dry. Notify Provider of: excessive bleeding, swelling, pain, inability to urinate or have a bowel movement. also notify of pus-like drainage or fever. Wound/Incision Care after Discharge: Keep operative site/wound site clean and dry. no lotions, powders, or ointments to incisions Medical Equipment for Home Use: splint pillow for coughing and sneezing. ice pack 20 min every hour as needed for 2 days. Pain medication: take with food and use stool softeners 2-3x/day to prevent constipation Resume taking Plavix on . Follow-Up Appointments Follow Up with [facility] When Within 2 to 3 days Comments rosario f/u appointment September 16 at 1:30 pm Where: [address] [place] [address] Business (1) Medications What How Much When Instructions Next Dose acetaminophen-hydrocodone (acetaminophen-HYDROcodone 325 mg-5 mg oral tablet) 1-2 tabs Oral Every 6 Hours as needed for for pain Pickup at [facility] amLODIPine (amLODIPine 5 mg oral tablet) 1 Tablet(s) Oral Every Day aspirin (aspirin 81 mg oral delayed release tablet) 1 Tablet(s) Oral Two Times A Day cholecalciferol (Vitamin D3 5000 units oral capsule) 1 Capsule(s) Oral Two Times A Day with food clopidogrel (clopidogrel 75 mg oral tablet) Oral Every Day cyanocobalamin (cyanocobalamin 1000 mcg/ mL injectable solution) 1 Milliliter(s) IntraMuscular Once a month cyanocobalamin (Vitamin B12) 5,000 Microgram(s) Oral Every Day dimethyl fumarate (Tecfidera 240 mg oral delayed release capsule) 1 Capsule(s) Oral Two Times A Day diphenhydrAMINE 25 Milligram(s) Oral Every Day hydroCHLOROthiazide (hydroCHLOROthiazide 25 mg oral tablet) 1 Tablet(s) Oral Every Day losartan (losartan 50 mg oral tablet) 1 Tablet(s) Oral Every Day methylPHENidate (methylphenidate 10 mg oral tablet) 1 Tablet(s) Oral Two Times A Day modafinil (modafinil 200 mg oral tablet) 1 Tablet(s) Oral Two Times A Day omeprazole 40 Milligram(s) Oral Every Day potassium chloride (Potassium Chloride (Eqv-K-Tab) 20 mEq oral tablet, extended release) 1 Tablet(s) Oral Two Times A Day rosuvastatin (rosuvastatin 20 mg oral tablet) 1 Tablet(s) Oral Every Day solifenacin 10 Milligram(s) Oral Every Day tamsulosin (tamsulosin 0.4 mg oral capsule) 1 Capsule(s) Oral Every Day Pharmacy Information [facility]: [address] [place] [address] [phone] Take your medications faithfully. Do NOT skip medication. Do NOT stop taking medications without the direction of a physician. Carry a list of your medications with you at all times, and take this medication list with you to your first follow up visit. Report any side effects. Avoid herbal remedies unless discussed with your physician. As part of your treatment plan, your physician may have prescribed a limited course of a controlled substance. This medication may be given to help people with moderate or severe pain or for other medical conditions, but there are risks involved with treatment. Common side effects may include nausea, constipation, drowsiness, sweating, itching, dry mouth, and rash. More serious side effects may include cognitive and motor impairment, like problems with thinking, concentrating, alertness, and movement (e.g. slowed reflexes), and driving and operating heavy machinery can be dangerous. It is important for you to talk to your physician if you have these side effects or questions. These controlled substances can produce physical dependence and be habit-forming if taken for an extended period of time, which means that the body has gotten used to them and may experience withdrawal symptoms if they are abruptly stopped. Withdrawal symptoms can include runny nose, sweating, goose bumps, diarrhea, abdominal cramping, rapid heartbeat, difficulty sleeping, and nervousness. Please dispose of unused and medications per pharmacy guidance. Education Materials Laparoscopic Inguinal Hernia Repair, Adult, Care After This sheet gives you information about how to care for yourself after your procedure. Your health care provider may also give you more specific instructions. If you have problems or questions, contact your health care provider. What can I expect after the procedure? After the procedure, it is common to have: ??? Pain. ??? Swelling and bruising around the incision area. ??? Scrotal swelling, in men. ??? Some fluid or blood draining from your incisions. Follow these instructions at home: Incision care ??? Follow instructions from your health care provider about how to take care of your incisions. Make sure you: ? Wash your hands with soap and water before you change your bandage (dressing). If soap and water are not available, use hand neighborhood planner. ? Change your dressing as told by your health care provider. ? Leave stitches (sutures), skin glue, or adhesive strips in place. These skin closures may need to stay in place for 2 weeks or longer. If adhesive strip edges start to loosen and curl up, you may trim the loose edges. Do not remove adhesive strips completely unless your health care provider tells you to do that. ??? Check your incision area every day for signs of infection. Check for: ? More redness, swelling, or pain. ? More fluid or blood. ? Warmth. ? Pus or a bad smell. ??? Wear loose, soft clothing while your incisions heal. Driving ??? Do not drive or use heavy machinery while taking prescription pain medicine. ??? Do not drive for 24 hours if you were given a medicine to help you relax (sedative) during your procedure. Activity ??? Do not lift anything that is heavier than 10 lb (4.5 kg), or the limit that you are told, until your health care provider says that it is safe. ??? Ask your health care provider what activities are safe for you. A lot of activity during the first week after surgery can increase pain and swelling. For 1 week after your procedure: ? Avoid activities that take a lot of effort, such as exercise or sports. ? You may walk and climb stairs as needed for daily activity, but avoid long walks or climbing stairs for exercise. Managing pain and swelling ??? Put ice on painful or swollen areas: ? Put ice in a plastic bag. ? Place a towel between your skin and the bag. ? Leave the ice on for 20 minutes, 2???3 times a day. General instructions ??? Do not take baths, swim, or use a hot tub until your health care provider approves. Ask your health care provider if you may take showers. You may only be allowed to take sponge baths. ??? Take kfoz-zec-fqreqed and prescription medicines only as told by your health care provider. ??? To prevent or treat constipation while you are taking prescription pain medicine, your health care provider may recommend that you: ? Drink enough fluid to keep your urine pale yellow. ? Take hbuo-hnz-yawakkg or prescription medicines. ? Eat foods that are high in fiber, such as fresh fruits and vegetables, whole grains, and beans. ? Limit foods that are high in fat and processed sugars, such as fried and sweet foods. ??? Do not use any products that contain nicotine or tobacco, such as cigarettes and e-cigarettes. If you need help quitting, ask your health care provider. ??? Drink enough fluid to keep your urine pale yellow. ??? Keep all follow-up visits as told by your health care provider. This is important. Contact a health care provider if: ??? You have more redness, swelling, or pain around your incisions or your groin area. ??? You have more swelling in your scrotum. ??? You have more fluid or blood coming from your incisions. ??? Your incisions feel warm to the touch. ??? You have severe pain and medicines do not help. ??? You have abdominal pain or swelling. ??? You cannot eat or drink without vomiting. ??? You cannot urinate or pass a bowel movement. ??? You faint. ??? You feel dizzy. ??? You have nausea and vomiting. ??? You have a fever. Get help right away if: ??? You have pus or a bad smell coming from your incisions. ??? You have redness, warmth, or pain in your leg. ??? You have chest pain. ??? You have problems breathing. Summary ??? Pain, swelling, and bruising are common after the procedure. ??? Check your incision area every day for signs of infection, such as more redness, swelling, or pain. ??? Put ice on painful or swollen areas for 20 minutes, 2???3 times a day. This information is not intended to replace advice given to you by your health care provider. Make sure you discuss any questions you have with your health care provider. Document Released: 09/21/2017 Document Revised: 11/20/2019 Document Reviewed: 09/21/2017 [employer] Patient Education ?? 2020 [employer] Emergency Awareness and Preventative Care STROKE is an EMERGENCY Every Minute Counts Act FAST and Check for these signs: FACE Does the face look uneven? ARM Does one arm drift down? SPEECH Does their speech sound strange? TIME Call at any sign of stroke Stroke Risk Factors Atrial Fibrillation (irregular heartbeat) Diabetes Family history of stroke Heart Disease Heavy alcohol use High Blood Pressure High Cholesterol Physical inactivity and obesity Smoking Cigarette Smoking The facts are clear, cigarette smoking will shorten your life. Smoking can cause many illnesses along the way. As a healthcare provider, we recommend that you stop smoking. Assistance with quitting is available by contacting 1-222-QJQXCareWireNOW. This is a free resource providing counseling, support, and referral. Or you may contact your personal physician. [employer] Business Plan Suicide Prevention Lifeline: The National Suicide Prevention Lifeline is a national network of local crisis centers that provides free and confidential emotional support to people in suicidal crisis or emotional distress 24 hours a day, 7 days a week. Don't Wait! Stop a Heart Attack Before it Starts What is a heart attack? A heart attack is damage or to a part of the heart from severely decreased or lack of blood flow to the heart. Over time, arteries can become narrow from the buildup of fat and cholesterol, which is called plaque. The plaque can rupture causing a blood clot to form. When the blood clot forms, the artery can become severely narrowed or completely blocked, causing a heart attack. Heart attack is the leading cause of in the [place]. 85% of muscle damage occurs within the first 2 hours. Delay in the recognition of heart attack symptoms increases the chances of . Know the early symptoms of a heart attack: Nausea Feeling of fullness in chest Jaw Pain Pain that travels down one or both arms Fatigue/being tired Anxiety Back Pain Chest pressure, squeezing, or discomfort Shortness of breath Sweating, or a cold sweat Feeling of impending doom There are unusual signs of a heart attack, too! Women, the elderly, and diabetics may present with atypical symptoms: Fainting/dizziness Weakness Confusion Risk Factors for a Heart Attack Some heart disease risk factors, such as age and family history, cannot be changed. Others, like smoking and lack of exercise, can be changed. Smoking High Cholesterol High Blood Pressure Family History Obesity Age Gender (Males are at higher risk) Lack of Exercise Diabetes Diet Stress Excessive Alcohol Intake If you or someone you know is experiencing the signs and symptoms of a heart attack, DON???T DELAY. Call immediately and seek help. If someone collapses, perform CPR! Do not attempt to drive if you are having symptoms of heart attack. Hands-Only CPR Why Hands-Only CPR? Hands-Only CPR has been shown to be as effective as conventional CPR for cardiac arrests that occur outside of a hospital. Survival depends on immediately receiving CPR from someone nearby. How do you perform Hands-Only CPR? There are two easy steps: Call if you see a teen or adult collapse Push hard and fast in the center of the chest at a beat of 100 beats per minute. Save a life! 4 WAYS TO GET AHEAD OF SEPSIS SEPSIS is a MEDICAL EMERGENCY. Time matters! Infections put you and your family at risk for a life-threatening condition called sepsis. Sepsis is the body's extreme response to an infection. It is life-threatening, and without timely treatment, sepsis can rapidly lead to tissue damage, organ failure, and . Sepsis happens when an infection you already have-in your skin, lungs, urinary tract or somewhere else-triggers a chain reaction throughout your body. 1 PREVENT INFECTIONS Take good care of chronic conditions. Talk to your doctor about getting the recommended vaccines. 2 PRACTICE GOOD HYGIENE Wash your hands frequently. Keep cuts or open sores clean and covered until they are healed. 3 KNOW THE SYMPTOMS Confusion or disorientation Shortness of breath High heart rate Fever, shivering, or feeling very cold Extreme pain or discomfort Clammy or sweaty skin 4 ACT FAST Get medical care IMMEDIATELY if you suspect sepsis or if you have an infection that is not getting better or is getting worse. To learn more about sepsis and how to prevent infections, visit www.cdc.gov/sepsis. Test Results Laboratory or Other Results This Visit (last charted value for your 09/08/2020 visit) Microbiology 09/04/2020 10:00 AM SARS-CoV-2 (COVID19 PCR): Negative General Chemistry 09/08/2020 8:59 AM Potassium POC: 3.9 mmol/L -- Normal range between ( 3.5 and 4.9 ) :Potassium Level POC: :Potassium Level POC Patient Name:NIRMALA WIGGINS Ox[place] have received this information and was given the opportunity to ask questions. Patient/Lathe Machine Operator Name: Patient/Lathe Machine Operator Signature: Relationship to Patient: Clinician/Hospital Lathe Machine Operator Signature: Date: documented in this encounter Plan of Treatment Not on file documented as of this encounter Visit Diagnoses Not on filedocumented in this encounter
--- OUTSIDE RECORDS SUMMARY | 2025-02-10 12:46 | XMS_ITS | Referral Summary ---
Author Organization [employer] ([place], [place], [place], [place]) Address [address] [place] [address] Care Team Providers Care Utilization Review Nurse Name Role Phone Unavailable Primary Care Provider Unavailabl e Social History Tobacco Use Types Packs/Day Years Used Date Smoking Tobacco: Never Assessed Sex and Gender Information Value Date Recorded Sex Assigned at Not on file Legal Sex Male 7:16 PM CDT Gender Identity Not on file Sexual Orientation Not on file Plan of Treatment Not on file
--- OUTSIDE RECORDS SUMMARY | 2025-02-10 12:46 | XMS_ITS | Encounter Summary ---
Author Organization [employer] ([place], [place], [place], [place]) Address [address] [place] [address] Care Team Providers Care Radiation Oncology Therapist Name Role Phone Unavailable Primary Care Provider Unavailabl e Encounter Details Date Type Department Care Team (Late st Contact Info) Description 09/07/2020 Transcribed Document [facility] [place] Family Medicine [place] [address] ProviderXimena MD [address] [place] [address] Social History Tobacco Use Types Packs/Day Years Used Date Smoking Tobacco: Never Assessed Sex and Gender Information Value Date Recorded Sex Assigned at Not on file Legal Sex Male 7:16 PM CDT Gender Identity Not on file Sexual Orientation Not on file documented as of this encounter Miscellaneous Notes * Cerner Conversion Note - Ximena Jackson MD - 09/07/2020 2:45 PM CDT PAT Adult Entered On: 09/07/2020 14:52 EDT Performed On: 09/07/2020 14:45 EDT by Sekou Bruno Rn Height and Weight, Clinical Dosing Height Source : Measured Height Entry Format : [place]duffie Height, Feet : 5 ft(Converted to: 152 cm, 60 Inch) Height, Inches : 10 Inch(Converted to: 0 ft 10 Inch, 25.40 cm) Clinical Height : 177.8 cm Weight Source : Standing scale Weight Entry Format : Mcduffie Clinical Dosing Weight : 98.64 kg Weight, Pounds : 217 lb Body Surface Area (BSA) : 2.16 m2 Body Mass Index : 31.2 kg/m2 (HI) [place] Body Weight : 72 kg Bre Marroquin RN - 09/08/2020 8:28 EDT Health Histories Smoking Status : 10 or more cigarettes (1/2 pack or more)/day in last 30 days Smokeless Tobacco Status : Never Desires Tobacco Cessation Medication : No Reason for No Tobacco Cessation Medication : Refuses FDA approved medications Implant/Device Type, Commissary Manager and Model : pins in foot stents in heart Sekou Bruno Rn - 09/07/2020 14:45 EDT Social History (As Of: 09/07/2020 14:52:31 EDT) Tobacco: 10 or more cigarettes (1/2 pack or more)/day in last 30 days Smoking Status. Never Smokeless Tobacco Status. None Smokeless Tobacco Use History. Years of Use: 23. Packs/Tins Daily: 1. Last Used: August 2020. Second Hand Smoke Exposure: No. (Last Updated: 09/07/2020 14:45:46 EDT by Sekou Bruno Rn) Alcohol: Alcohol Use History Yes. Days/Week: 2. # Drinks/Day: 2. Total Drinks/Week: 4. Use in Last 12 Months: Yes. (Last Updated: 09/07/2020 14:45:46 EDT by Sekou Bruno Rn) Substance Abuse: Drug Use Hx: No. Use in Last 12 Months: No. (Last Updated: 09/07/2020 14:45:46 EDT by Sekou Bruno Rn) Infectious Disease History Infectious Disease History : Chicken pox/Shingles, Measles, Mumps Bre Marroquin RN - 09/08/2020 8:28 EDT Has the patient ever been tested for COVID-19? : Yes, Patient stated results pending Date of COVID-19 test known? : Yes Date of COVID-19 Test : 09/04/2020 EST Does patient have symptoms of COVID-19? : No COVID19 Screening : No Experiencing Infectious Disease Symptoms : No symptoms Physical contact outside [place] in the last 30 days : No Tuberculosis Symptoms : None Sekou Bruno Rn - 09/07/2020 14:45 EDT COVID19 PreProcedure Screening Is this an Emergent or Add on Procedure? : No Date PreProcedure COVID-19 test known? : Yes Date of PreProcedure COVID-19 : 09/04/2020 EST Has patient been isolated since the test : No Exposed to COVID19 symptoms since test? : No Sekou Bruno Rn - 09/07/2020 14:45 EDT Anesthesia/Transfusion History Family History of Anesthesia Reaction : No prior transfusion(s) Blood Transfusion Acceptable to Patient : Yes Transfusion History : Prior anesthesia reaction Type of Anesthesia Reaction : Other: Passed out on the way home from surgery. Was brought back to the hospital and was told it was a reaction to the anesthesia. Family History of Anesthesia Reaction : Other: I think my mother has had some trouble with it in the past. Sekou Bruno Rn - 09/07/2020 14:45 EDT Functional Assessment Functional ADL Evaluation Index EBN Bathing : Independent (2) Dressing : Independent (2) Toileting : Independent (2) Transferring Bed or Chair : Independent (2) Continence : Independent (2) Feeding : Independent (2) Sekou Bruno Rn - 09/07/2020 14:45 EDT ADL Index Score : 12 Sekou Bruno Rn - 09/07/2020 14:45 EDT Advance Directive Patient has Advance Directive *Q : No, patient refuses Advance Directive information Sekou Bruno Rn - 09/07/2020 14:45 EDT Spiritual/Cultural Needs Any Spiritual/Cultural Needs or Requests : No Sekou Bruno Rn - 09/07/2020 14:45 EDT [place] Suicide Severity Rating Scale (C-SSRS) CSSRS Past Month Wish to be : No CSSRS Past Month Suicidal Thoughts : No CSSRS Lifetime Suicide Behavior : No Suicide Severity Rating Score : 0 Suicide Severity Rating : No Additional Care Required at this time Sekou Bruno Rn - 09/07/2020 14:45 EDT Psychosocial History Currently in Unsafe Situation : No Sekou Bruno Rn - 09/07/2020 14:45 EDT General Info Preferred Name : Dada Mode of Arrival on Unit : Ambulatory Legal Guardian : Sibling Support Person/Patient Core Winding Operator : Yes Support Person/Pt Rep Name : Barry Tomlinson - brother Support Person/Pt Rep Contact Information : [phone] Want Family/Rep/Phys Notified of Admit : No Emergency Contact #1 : ` Emergency Contact #1 Phone Number : ` Emergency Contact #1 Relationship : ` Emergency Contact #2 : ` Emergency Contact #2 Phone Number : ` Emergency Contact #2 Relationship : ` Information Obtained From : Patient Primary Language : Chilean Communication Barrier : None Paint Stockman Needed : No Sekou Bruno Rn - 09/07/2020 14:45 EDT [place] Scale [place] Sensory Perception : No impairment [place] Moisture : Rarely moist [place] Activity : Walks occasionally [place] Mobility : Slightly limited [place] Nutrition : Adequate [place] Friction and Shear : No apparent problem [place] Score : 20 Sekou Bruno Rn - 09/07/2020 14:45 EDT Sleep Apnea Risk Assmt BiPAP/CPAP Ordered for Home Use : Yes Hx of Obstructive Sleep Apnea Diagnosis : Yes BiPAP/CPAP Used at Home : No Reason BiPAP/CPAP Not Used at Home : I'm working on that Age over 50 Years Old : Yes Gender Male : Yes Sekou Bruno Rn - 09/07/2020 14:45 EDT documented in this encounter Plan of Treatment Not on file documented as of this encounter Visit Diagnoses Not on filedocumented in this encounter
--- OUTSIDE RECORDS SUMMARY | 2025-02-10 12:46 | XMS_ITS | Clinical Summary ---
Author Organization [employer] ([place], [place], [place], [place]) Address [address] [place] [address] Care Team Providers Care Food Service Lead Name Role Phone Unavailable Primary Care Provider [...]
--- OUTSIDE RECORDS SUMMARY | 2025-02-10 12:46 | XMS_ITS | Clinical Summary ---
Author Organization Healthcare Address [address] [place] [address] Care Team Providers Care Marketing Compliance Manager Name Role Phone Neil Lai MD Primary Care Provider [phone] Family History Medical History Relation Name Comments Cardiac disorder Father Diabetes Father Hypertension Father Relation Name Status Comments Father Social History Tobacco Use Types Packs/Day Years Used Date Smoking Tobacco: Former Sex and Gender Information Value Date Recorded Sex Assigned at Not on file Legal Sex Male 6:13 PM EDT Gender Identity Not on file Sexual Orientation Not on file Last Filed Vital Signs Vital Sign Reading Time Taken Comments Blood Pressure - - Pulse - - Temperature - - Respiratory Rate - - Oxygen Saturation - - Inhaled Oxygen Concentration - - Weight 110 kg (242 lb) 04/20/2016 2:45 PM EDT Height 180.3 cm (5' 11 ) 04/20/2016 2:45 PM EDT Body Mass Index 33.75 04/20/2016 2:45 PM EDT Plan of Treatment Health Maintenance Due Date Last Done Comments [facility]-Depression Screening 1960 [facility]-/Child/Adol SDOH Screenings 1961 [facility]- SDOH Screenings 1979 [facility]-Adult SDOH Screenings 1979 [facility]-DTaP,Tdap,and Td Vaccine s (1 - Tdap) 1980 CT Colonography 2006 Colonoscopy 2006 FIT-DNA 2006 FIT 2006 FOBT 2006 Sigmoidoscopy 2006 [facility]-Colorectal Cancer Screening 2006 [facility]-Pneumococcal Vaccine: 50 + Years (1 of 1 - PCV) 2011 [facility]-Zoster Vaccines (1 of 2) 2011 [facility]-VDBLP-95 Vaccine (1 - 20 24-25 season) 2024 [facility]-Influenza Vaccine (#1) 2025 [facility]-RSV Vaccine: 60+ Years o r (1 - 1-dose 75+ series) 2036 HPV Vaccines Aged Out No longer eligi ble based on patient's age to complete this topic [facility]-HIB Vaccines Aged Out No longer e ligible based on patient's age to complete this topic [facility]-Hepatitis A Vaccines Aged Out No longer eligible based on patient's age to complete this topic [facility]-IPV Vaccines Aged Out No longer e ligible based on patient's age to complete this topic [facility]Y-Rotavirus Vaccines Aged Out No lo nger eligible based on patient's age to complete this topic Insurance [employer] Care Teams Marketing Compliance Manager Relationship Specialty Start Date End Date Neil Lai MD [address] [facility] [address] [place] [address] PCP - General 11/06/20
--- OUTSIDE RECORDS SUMMARY | 2025-02-10 12:46 | XMS_ITS | Encounter Summary ---
Author Organization [employer] ([place], [place], [place], [place]) Address [address] [place] [address] Care Team Providers Care Client Advisor Name Role Phone Unavailable Primary Care Provider Unavailabl e Encounter Details Date Type Department Care Team (Late st Contact Info) Description 09/08/2020 Transcribed Document [facility] [place] Family Medicine [address] [place] [address] ProviderXimena MD [address] [place] [address] Social History Tobacco Use Types Packs/Day Years Used Date Smoking Tobacco: Never Assessed Sex and Gender Information Value Date Recorded Sex Assigned at Not on file Legal Sex Male 7:16 PM CDT Gender Identity Not on file Sexual Orientation Not on file documented as of this encounter Miscellaneous Notes * Cerner Conversion Note - Ximena ProviderMD - 09/08/2020 12:16 PM CDT [facility] Main OR Preop Summary Primary Physician: VIRGEN LEIVA MD-SUR Finalized Date/Time: 09/08/20 15:34:11 Pt. Name: NIRMALA WIGGINSO.B./Sex: 1960 Male Med Rec #: [id number] Physician: VIRGEN LEIVA MD-SUR Financial #: [id number] Pt. Type: O Room/Bed: Admit/Disch: 09/08/20 08:09:00 - Institution: [facility] PreOp Case Times Entry 1 In Preop 09/08/20 08:22:00 Ready for Holding n/a Room Patient Ready for 09/08/20 09:15:00 Surgery Patient Out of Preop 09/08/20 11:45:00 Patient Out of n/a Holding Room Last Modified By: Alfreda Judge, RN 09/08/20 15:34:10 [facility] PreOp Case Times Audit 09/08/20 15:34:10 Compliance Investigator: BIGG Modifier: SANAM <+> 1 Patient Out of Preop 09/08/20 09:11:19 Compliance Investigator: BIGG Modifier: BIGG 1 <*> Patient Ready for Surgery 09/08/20 09:10:00 Finalized By: Alfreda Judge RN Document Signatures Signed By: Alfreda Judge RN 09/08/20 15:34 Electronically signed by Tiffany [facility] Conversion Director Of Cardiac Cath Lab Cerner at 10/12/2022 9:07 PM CDT documented in this encounter Plan of Treatment Not on file documented as of this encounter Visit Diagnoses Not on filedocumented in this encounter
--- OUTSIDE RECORDS SUMMARY | 2025-02-10 12:46 | XMS_ITS | Encounter Summary ---
Author Organization [employer] ([place], [place], [place], [place]) Address [address] [place] [address] Care Team Providers Care Cash Management Specialist Name Role Phone Unavailable Primary Care Provider Unavailabl e Encounter Details Date Type Department Care Team (Late st Contact Info) Description 09/08/2020 Transcribed Document [facility] [place] Family Medicine [facility] [place] [address] ProviderXimena MD [address] [place] [address] Social History Tobacco Use Types Packs/Day Years Used Date Smoking Tobacco: Never Assessed Sex and Gender Information Value Date Recorded Sex Assigned at Not on file Legal Sex Male 7:16 PM CDT Gender Identity Not on file Sexual Orientation Not on file documented as of this encounter Miscellaneous Notes * Cerner Conversion Note - Ximena Jackson MD - 09/08/2020 3:35 PM CDT Patient Education Materials Follows: Laparoscopic Inguinal Hernia Repair, Adult, Care After [...] and water are not available, use hand board lining machine operator. ? Change your dressing as told by [...] Leave the ice on for 20 minutes, 2?3 times a day. General instructions ??? Do not take baths, swim, or use a hot tub until your health care provider approves. Ask your health care provider if you may take showers. You may only be allowed to take sponge baths. ??? Take pvco-gcx-gfvnbzr and prescription medicines only as told by your health care provider. ??? To prevent or treat constipation while you are taking prescription pain medicine, your health care provider may recommend that you: ? Drink enough fluid to keep your urine pale yellow. ? Take atik-fyv-mzjremi or prescription medicines. ? Eat foods that [...] painful or swollen areas for 20 minutes, 2?3 times a day. This information is not intended to replace advice given to you by your health care provider. Make sure you discuss any questions you have with your health care provider. Document Released: 09/21/2017 Document Revised: 11/20/2019 Document Reviewed: 09/21/2017 [employer] Patient Education ? 2020 [employer] documented in this encounter Plan of Treatment Not on file documented as of this encounter Visit Diagnoses Not on filedocumented in this encounter
--- OUTSIDE RECORDS SUMMARY | 2025-02-10 12:46 | XMS_ITS | Encounter Summary ---
Author Organization [employer] ([place], [place], [place], [place]) Address [address] [place] [address] Care Team Providers Care Steamfitter Name Role Phone Unavailable Primary Care Provider Unavailabl e Encounter Details Date Type Department Care Team (Late st Contact Info) Description 09/08/2020 Transcribed Document [facility] [place] [address] [place] [address] ProviderXimena MD [address] [place] [address] Social History Tobacco Use Types Packs/Day Years Used Date Smoking Tobacco: Never Assessed Sex and Gender Information Value Date Recorded Sex Assigned at Not on file Legal Sex Male 7:16 PM CDT Gender Identity Not on file Sexual Orientation Not on file documented as of this encounter Miscellaneous Notes * Cerner Conversion Note - Ximena ProviderMD - 09/08/2020 12:[address] [facility] Main OR PostOp Summary Primary Physician: VIRGEN LEIVA MD-SUR Finalized Date/Time: 09/08/20 15:57:46 Pt. Name: NIRMALA WIGGINS D.O.B./Sex: 1960 Male Med Rec #: [id number] Physician: VIRGEN LEIVA MD-SUR Financial #: [id number] Pt. Type: O Room/Bed: Admit/Disch: 09/08/20 08:09:00 - Institution: [facility] Main OR PostOp Case Times Entry 1 In PACU II 09/08/20 15:02:00 Ready for PACU II 09/08/20 15:50:00 Discharge Discharge from PACU 09/08/20 15:50:00 II Last Modified By: Jeanna Erickson Rn 09/08/20 15:57:43 Finalized By: Jeanna Erickson Rn Document Signatures Signed By: Jeanna Erickson Rn 09/08/20 15:57 documented in this encounter Plan of Treatment Not on file documented as of this encounter Visit Diagnoses Not on filedocumented in this encounter
--- OUTSIDE RECORDS SUMMARY | 2025-02-10 12:46 | XMS_ITS | Encounter Summary ---
Author Organization Healthcare Address [address] [place] [address] Care Team Providers Care Stick Inserter Name Role Phone Neil Lai MD Primary Care Provider [phone] Encounter Details Date Type Department Care Team (Late st Contact Info) Description 11/20/2020 Orders Only [facility] Room [address] [place] [address] Vincenzo Worrell [facility] [address] [place], [place] [id number] Social History Tobacco Use Types Packs/Day Years Used Date Smoking Tobacco: Former Sex and Gender Information Value Date Recorded Sex Assigned at Not on file Legal Sex Male 6:13 PM EDT Gender Identity Not on file Sexual Orientation Not on file documented as of this encounter Plan of Treatment Not on file documented as of this encounter Visit Diagnoses Not on filedocumented in this encounter Care Teams Stick Inserter Relationship Specialty Start Date End Date Neil Lai MD [address] [facility] [address] [place] [id number] PCP - General 11/06/20 documented as of this encounter
--- OUTSIDE RECORDS SUMMARY | 2025-02-10 12:47 | XMS_ITS | Encounter Summary ---
Author Organization [employer] ([place], [place], [place], [place]) Address [address] [place] [address] Care Team Providers Care Lacquer Pin Press Operator Name Role Phone Unavailable Primary Care Provider Unavailabl e Encounter Details Date Type Department Care Team (Late st Contact Info) Description 09/08/2020 Transcribed Document [facility] [place] Family Medicine [facility] [place] [address] ProviderXimena MD [address] [place] [address] Social History Tobacco Use Types Packs/Day Years Used Date Smoking Tobacco: Never Assessed Sex and Gender Information Value Date Recorded Sex Assigned at Not on file Legal Sex Male 7:16 PM CDT Gender Identity Not on file Sexual Orientation Not on file documented as of this encounter Miscellaneous Notes * Cerner Conversion Note - Ximena Jackson MD - 09/08/2020 8:53 AM CDT Patient: NIRMALA WIGGINS Age: 60 years Sex: Male : 1960 Associated Diagnoses: None Author: KELSEY GRANADOS APRN Chief Complaint [facility]H Review of Systems ROS reviewed as documented in chart no change since last seen by surgeon Health Status Allergies: Allergic Reactions (Selected) No Known Medication Allergies, Allergies (1) Active Reaction No Known Medication Allergies None Documented Current medications: (Selected) Inpatient Medications Ordered Ancef: 2 Gram, 50 mL, 100 mL/Hr, IV Piggyback, PREOP Lactated Ringers Injection intravenous solution 1,000 mL: 20 mL/Hr, IntraVENous Sodium Chloride 0.9% intravenous solution 1,000 mL: 100 mL/Hr, IntraVENous Documented Medications Documented Potassium Chloride (Eqv-K-Tab) 20 mEq oral tablet, extended release: 1 Tab, Oral, BID, 0 Refill(s) Tecfidera 240 mg oral delayed release capsule: 1 Cap, Oral, BID, 60 Cap, 0 Refill(s) Vitamin B12: 5,000 mcg, Oral, Daily, 0 Refill(s) Vitamin D3 5000 units oral capsule: 1 Cap, Oral, BID, with food, 100 Cap, 0 Refill(s) amLODIPine 5 mg oral tablet: 1 Tab, Oral, Daily, 0 Refill(s) aspirin 81 mg oral delayed release tablet: 1 Tab, Oral, BID, 30 Tab, 0 Refill(s) clopidogrel 75 mg oral tablet: Tab, Oral, Daily, 0 Refill(s) cyanocobalamin 1000 mcg/mL injectable solution: 1 mL, IntraMuscular, qMonth, 10 mL, 0 Refill(s) diphenhydrAMINE: 25 mg, Oral, Daily, 0 Refill(s) hydroCHLOROthiazide 25 mg oral tablet: 1 Tab, Oral, Daily, 0 Refill(s) losartan 50 mg oral tablet: 1 Tab, Oral, Daily, 0 Refill(s) methylphenidate 10 mg oral tablet: 1 Tab, Oral, BID, 0 Refill(s) modafinil 200 mg oral tablet: 1 Tab, Oral, BID, 0 Refill(s) omeprazole: 40 mg, Oral, Daily, 0 Refill(s) rosuvastatin 20 mg oral tablet: 1 Tab, Oral, Daily, 30 Tab, 0 Refill(s) solifenacin: 10 mg, Oral, Daily, 0 Refill(s) tamsulosin 0.4 mg oral capsule: 1 Cap, Oral, Daily, 0 Refill(s), Home Medications (17) Active amLODIPine 5 mg oral tablet 5 mg = 1 Tab, Oral, Daily aspirin 81 mg oral delayed release tablet 81 mg = 1 Tab, Oral, BID clopidogrel 75 mg oral tablet , Oral, Daily cyanocobalamin 1000 mcg/mL injectable solution 1,000 mcg = 1 mL, IntraMuscular, qMonth diphenhydrAMINE 25 mg, Oral, Daily hydroCHLOROthiazide 25 mg oral tablet 25 mg = 1 Tab, Oral, Daily losartan 50 mg oral tablet 50 mg = 1 Tab, Oral, Daily methylphenidate 10 mg oral tablet 10 mg = 1 Tab, Oral, BID modafinil 200 mg oral tablet 200 mg = 1 Tab, Oral, BID omeprazole 40 mg, Oral, Daily Potassium Chloride (Eqv-K-Tab) 20 mEq oral tablet, extended release 20 mEq = 1 Tab, Oral, BID rosuvastatin 20 mg oral tablet 20 mg = 1 Tab, Oral, Daily solifenacin 10 mg, Oral, Daily tamsulosin 0.4 mg oral capsule 0.4 mg = 1 Cap, Oral, Daily Tecfidera 240 mg oral delayed release capsule 240 mg = 1 Cap, Oral, BID Vitamin B12 5,000 mcg, Oral, Daily Vitamin D3 5000 units oral capsule 5,000 Int Units = 1 Cap, Oral, BID , Medications (3) Active Scheduled: (1) ceFAZolin/D5w 2 Gram 50 mL, IV Piggyback, PREOP Continuous: (2) lactated ringers 1,000 mL 1,000 mL, IntraVENous, 20 mL/Hr NaCl 0.9% 1,000 mL 1,000 mL, IntraVENous, 100 mL/Hr PRN: (0) Problem list: All Problems Vitamin B deficiency / SNOMED CT 53126788 / Confirmed Myocardial infarction / SNOMED CT 91684748 / Confirmed Multiple sclerosis / SNOMED CT 45142797 / Confirmed Lack of energy / SNOMED CT 176704395 / Confirmed Hyperlipidemia / SNOMED CT 64198756 / Confirmed History of obstructive sleep apnea / IMO 57136696 / Confirmed High blood pressure / SNOMED CT 54401267 / Confirmed Hard of hearing / SNOMED CT 523587530 / Confirmed Coronary artery disease / SNOMED CT 3412832973 / Confirmed Kidney anomaly, 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 Family History: No family history items have been selected or recorded. Procedure history: Hernia Repair. cardiac catheterization with 2 stents. cardiac catheterization with 1 stent. umbilical hernia repair. right foot surgery. Colonoscopy ([id number]). Physical Examination VS/Measurements No qualifying data available, Measurements from flowsheet : Measurements 09/07/2020 14:45 EDT Height Source Measured Height Entry Format [place] Height/Length, OMANI (ft) 5 ft Height/Length OMANI 10 Inch CLINICALHEIGHT 177.8 cm Innis Body Weight 72 kg Weight Source Standing scale Weight Entry Format [place] Weight Uzbek lb 217 lb CLINICALWEIGHT 98.64 kg Body Surface Area (BSA) 2.16 m2 Body Mass Index 31.2 kg/m2 HI General: Alert and oriented, No acute distress, obese. Eye: Pupils are equal, round and reactive to light, Extraocular movements are intact, glasses. HENT: Normocephalic, slightly PICAYUNE. Neck: Supple, Non-tender. Respiratory: Lungs are clear to auscultation, Respirations are non-labored. Cardiovascular: Normal rate, Regular rhythm, No murmur, No gallop, No edema. Gastrointestinal: Soft, LIH. Genitourinary: No costovertebral angle tenderness. Lymphatics: No lymphadenopathy neck, axilla, groin. Musculoskeletal: Normal range of motion, Normal strength. Integumentary: Warm, Dry, scabs dav UE. Neurologic: Alert, Oriented. Psychiatric: Cooperative, Appropriate mood & affect. Review / Management Results review: No qualifying data available . Impression and Plan Condition: Stable. documented in this encounter Plan of Treatment Not on file documented as of this encounter Visit Diagnoses Not on filedocumented in this encounter
--- OUTSIDE RECORDS SUMMARY | 2025-02-10 12:47 | XMS_ITS | Clinical Summary ---
Author Organization [facility] Address [address] [place] [phone] Phone [email or web address] Care Team Providers Care Glass Cutting Machine Feeder Name Role Phone Neil Lai Primary Care Provider Unavailabl e Allergies No known active allergies Medications losartan (COZAAR) 50 MG tablet 08/28/2019 Active hydroCHLOROthia zide (HYDRODIURIL) 25 MG tablet 07/30/2019 Active methylphenidate (RITALIN) 10 MG tablet 08/28/2019 Active modafinil (PROVIGIL) 200 MG tablet 07/04/2019 Active omeprazole (PriLOSEC) [address] capsule TAKE 1 CAPSULE BY MOUTH ONCE DAILY FOR 90 DAYS 07/02/2019 Active potassium chloride (KLOR-CON M20) 20 MEQ CR tablet 08/26/2019 Active rosuvastatin (CRESTOR) 20 MG tablet 08/26/2019 Active solifenacin (VESICARE) 10 MG tablet 07/04/2019 Active tamsulosin (FLOMAX) 0.4 MG 24 hr capsule Take 0.4 mg by mouth 1 (one) time each day. 06/28/2019 Active TECFIDERA 240 MG capsule delayed-release 07/26/2019 Act jesus Active Problems Problem Noted Date Diagnosed Date Sprain of back 06/06/2011 Overview (11/22/2017): Laboratory exam ordered as p art of routine general medical examination 04/27/2011 Overview (11/22/2017): Examination for medicolegal reason 02/01/2011 Overview (11/22/2017): Routine general medical exam ination at a health care facility 07/16/2008 Overview (11/22/2017): Health examination of defined subpopulation 05/26 Overview (11/22/2017): Screening for hypertension 06/04/2008 Overview (11/22/2017): Other examination of ears and hearing 03/25/2008 Overview (11/22/2017): Displacement of lumbar inter vertebral disc without myelopathy 03/25/2008 Overview (11/22/2017): Social History Tobacco Use Types Packs/Day Years Used Date Smoking Tobacco: Every Day Cigarettes Smokeless Tobacco: Never Intimate Partner Violence Answer Date R ecorded Insults You Not on file 10/07/2020 Threatens You Not on file 10/07/2020 Screams at You Not on file 10/07/2020 Physically Hurt Not on file 10/07/2020 Intimate Partner Violence Score Not on file 10/07/2020 Depression Answer Date Recorded PHQ-9 Total Score 0 08/29/2019 Stress Answer Date Recorded Stress in your Life Not on file 2024 Dealing with Stress 3 2024 Sex and Gender Information Value Date Recorded Sex Assigned at Not on file Legal Sex Male 10:20 AM CDT Gender Identity Not on file Sexual Orientation Not on file Last Filed Vital Signs Vital Sign Reading Time Taken Comments Blood Pressure 142/83 09/12/2019 9:07 PM EDT Pulse 83 09/12/2019 9:07 PM EDT Temperature 36.8 C (98.2 F) 09/12/2019 9:07 PM EDT Respiratory Rate 14 08/29/2019 6:33 AM EST Oxygen Saturation 97% 09/12/2019 9:07 PM EDT Inhaled Oxygen Concentration - - Weight 94.3 kg (208 lb) 06/30/2015 7:44 PM BRANCH LOGISTICS SUPERVISOR Height 179.1 cm (5' 10.5 ) 06/30/2015 7:44 PM CS T Body Mass Index 29.42 06/30/2015 7:44 PM BRANCH LOGISTICS SUPERVISOR Plan of Treatment Health Maintenance Due Date Last Done Comments CT Colonography 1960 Colonoscopy 1960 Colorectal Cancer Screening Combo 1960 DNA Cologuard 1960 Dental Cleaning/Exam 1960 FIT or FOBT Test 1960 HIV Screening 1960 Hepatitis C Screening 1960 Sigmoidoscopy 1960 Annual Preventive Exam 1979 Hep B Infection Screening - Triple Screen 1979 Pneumococcal: Ped (0 to 5 Yrs) and At-Risk Member (6 to 64 Yrs) (1 of 2 - PCV) 1980 08/09/2014 Tetanus Diphtheria and Pertussis Immunization (1 - Tdap) 1980 Zoster Immunization (1 of 2) 2011 Covid-19 Immunization (1 - ) 02/25/2024 Influenza Immunization (#1) 02/24/202506/2017, 03/28/2016 Pneumococcal: 65+ Years Discontinued 08/09/2014 HIB Immunization Aged Out No longer e ligible based on patient's age to complete this topic HPV Immunization Aged Out No longer e ligible based on patient's age to complete this topic Hepatitis A Immunization Aged Out No longer eligible based on patient's age to complete this topic Hepatitis B Immunization Aged Out No longer eligible based on patient's age to complete this topic Polio Immunization Aged Out No longer eligible based on patient's age to complete this topic Insurance [employer] 5 Care Teams Glass Cutting Machine Feeder Relationship Specialty [place] [address] PCP - General Reference Assistant 08/29/19
--- NOTE | 2025-02-10 13:00 | CA_ITS ---
APPROVED REPORT EXAM: Comprehensive 2D, Doppler, and color-flow Echocardiogram with contrast Truck Hop: Janet Dumont CRT Ht: 5 ft 11 in Wt: 231lbs BSA: 2.24 BP: 138/71 mmHg Indications: COPD, Murmur, Diabetes, CAD, Hyperlipidemia, Hypertension/HDD Echo Enhancing Agent Indication: Endocardial border delineation Agent(s) / Amount(s) Used: Definity 2 cc Comments: Definity given 2D Dimensions LA Volume 79.60 mL LA Volume Index 35.54 mL/m2 (M/F) 16-34 M-Mode Dimensions RVDd 3.30 cm (0.9-2.6) LA Diam 4.46 cm (1.9-4.0) LVDd 5.99 cm (3.5-5.7) LVDs 4.74 cm (3.5-5.7) IVSd 1.49 cm (0.6-1.1) PWd 1.00 cm (0.6-1.1) EF (Teich) 41.80% FS 20.90% EDV (Teich) 179.30 mL TAPSE 2.54 (<1.7) ESV (Teich) 104.40 mL LV Diastology E Decel Time 273 (160-240 msec) E/A Ratio 0.6 MED A' 13.40 cm/s LAT A' 15.20 cm/s Aortic Valve TEOFILO Index 1.15 cm2/m2 AoV Peak Vinicio. 184.0 (50-130 cm/s) AO Peak GR. 13.60 mmHg AO Mean GR. 7.20 (<5 mmHg) AO VTI 32.5 (18-25 cm) TEOFILO (VTI) 2.65 (2.5-4.5 cm2) Mitral Valve MV E Max Vinicio. 73.0 (40-130 cm/s) MV A Velocity 115.0 (40-130 cm/s) E/A Ratio 0.63 MV PHT 80.0 ms Pulmonary Valve PV Peak Velocity 150.0 (50-150 cm/s) Tricuspid Valve TR P. Velocity 197.00 cm/s RAP Estimate 10.00 mmHg RVSP 25.50 mmHg Left Ventricle The left ventricle is normal size. Left ventricular systolic function is low-normal. There is normal left ventricular wall thickness. There is moderate hypokinesis of the inferior and inferoseptal LV james. The left ventricular diastolic function is normal. No left ventricle thrombus noted on this study. LVEF is 50% Right Ventricle The right ventricle is borderline dilated. The right ventricular systolic function is normal. Atria The left atrium is mildly dilated. The right atrium is mildly dilated. There is no color Doppler evidence of interatrial shunt. Aortic Valve The aortic valve opens well. There is no hemodynamically significant aortic valvular stenosis. No aortic regurgitation is present. Mitral Valve The mitral valve is normal in structure. No evidence of mitral valve stenosis. Mild mitral regurgitation is present. Tricuspid Valve The tricuspid valve leaflets are thin and pliable. Trace tricuspid regurgitation. There is insufficient TR jet to estimate RVSP. Pulmonic Valve The pulmonary valve is grossly normal in structure. Trace pulmonic valve regurgitation is present. Great Vessels The aortic root is normal in size. IVC is normal in size and collapses >50% with inspiration. Pericardium There is no pericardial effusion. Other Information Study Quality: Fair Conclusion Low-normal LV systolic function (LVEF 50%). Moderate hypokinesis of the inferior and inferoseptal LV james. Borderline RV dilation with normal RV function. Mild biatrial dilation. Mild MR. Electronically signed by : Becca Carlisle MD 02/12/2025 01:10:53
--- NOTE | 2025-02-10 13:45 | CT_ITS ---
FINAL REPORT CLINICAL HISTORY: Renal artery stenosis COMPARISON: None FINDINGS: The lung bases are clear. There is moderate fatty infiltration of the liver. A 1.7 cm cyst in the medial segment of the left lobe of the liver is noted. The gallbladder is incompletely distended. The spleen and pancreas are unremarkable. The right adrenal gland is normal. The there is a left adrenal mass measuring 2.4 cm in greatest dimension, indeterminate and could represent an adenoma. There is a smaller mass in the inferior portion of the left adrenal gland measuring 1.6 cm, also favored to represent adenoma. The right kidney is surgically absent. There is compensatory hydronephrosis of the left kidney. The renal vessels are not optimally opacified. Dual left renal arteries are noted. Dense vascular calcifications are noted of the origins of the renal arteries. Stenosis is difficult to quantify but appears to be less than 50% bilaterally. The appendix is unremarkable. There are advanced changes of degenerative disc disease at L4-5 and L5-S1 with moderate to high-grade left neural foraminal narrowing. IMPRESSION: Vessels not optimally opacified but there appears to be less than 50% stenosis of the bilateral renal arteries. Reviewed, Interpreted and Dictated by Weston Almaraz MD Transcribed by Iavna Hussein Authenticated and [facility]
[2025-02-10 14:04] LABS: Blood Urea Nitrogen 17 mg/dl (9-20); Creatinine,Serum 1.00 mg/dl (0.66-1.25); Estimated Glomerular Filt Rate 75 ml/min (>60); GFR (African American) 91 ML/MIN (>60)
[2025-02-10] MEDS: IOPAMIDOL-370 (76%);100ML BOTTLE 75 ML IV (14:28)
[2025-02-10] MEDS: SODIUM CHLORIDE 0.9% 10ML SYR (RAD ONLY) 10 ML IV (14:28)
[2025-02-10] MEDS: DEFINITY US ECHO CONTRAST 2ML INJ 2 MG IV (14:37)
== END 2025-02-10 23:59 | disposition home or self-care (01) ==
LOC: RT 12:45
PROVIDERS: PCP Internal Medicine; Visit Provider Physician Assistant
DX: I34.0 Nonrheumatic mitral (valve) insufficiency (principal); I70.1 Atherosclerosis of renal artery; I11.9 Hypertensive heart disease without heart failure; I25.10 Atherosclerotic heart disease of native coronary artery without angina pectoris; J44.9 Chronic obstructive pulmonary disease, unspecified; E11.9 Type 2 diabetes mellitus without complications; E78.5 Hyperlipidemia, unspecified; R93.1 Abnormal findings on diagnostic imaging of heart and coronary circulation; Z95.5 Presence of coronary angioplasty implant and graft
CPT/HCPCS: 36415; 74178; 82565; 84520; 93306; Q9957; Q9967

== ENCOUNTER 2025-02-13 13:10 | Day surgery (SDC) | payer BC, SELFPAY ==
[2025-02-07 14:39] VITALS: BMI 33.3
--- NOTE | 2025-02-12 16:54 | P.HP_ITS ---
History of Present Illness *Admission Date: 02/12/25 *Reason for visit:: Positive Cologuard *History of present illness: Mr. Tomlinson is a 64-year-old gentleman who is here for screening colonoscopy secondary to a positive Cologuard. The examination is deemed medically necessary for screening colonoscopy. The patient has been seen, interviewed and examined prior to the procedure by both myself and the anesthesia provider. [facility] Disclaimer: The information contained in this section may have been updated after the patient was seen, as this information can be updated by other users. Medical History HLD (hyperlipidemia) HTN (hypertension) CAD (coronary artery disease) Multiple sclerosis Sinus bradycardia Surgical History History of local excision of skin lesion History of foot surgery History of hernia repair History of coronary artery stent placement History of colonoscopy Family History Other Family history of heart disease Social History Smoking Status: Current every day smoker tobacco type: cigarettes packs per day: 5 alcohol intake: never substance use type: denies use current occupational status: retired Travel in the last 8 weeks?: None household members: spouse housing: house current occupation: [employer] caffeine: Yes Have you lived/traveled outside US in past 30 days?: No Contact w/someone who lives/traveled outside US past 30 days?: No Exposure to someone with infectious disease in past 14 days?: No Do you have a fever (greater than 100.4 F or 38 C)?: No Have you tested positive for COVID-19?: No Exposed to someone with COVID-19 in past 14 days?: No Do you have a sore throat?: No Do you have a cough?: No Do you have any weakness?: No Do you have any diarrhea?: No Are you experiencing any unusual bleeding?: No Do you have any muscle aches/pain?: No Do you have any abdominal pain?: No Are you experiencing loss of taste or smell?: No Other Medical History Have you received the Flu Vaccine for this season: No Have you received the Pneumonia Vaccine: Yes Review of Systems Review of Systems Review of systems (narrative): Negative *Cardiovascular Comments: Negative *Gastrointestinal Comments: Negative *Genitourinary Comments: Negative *Musculoskeletal Comments: Negative *Neurologic Comments: Negative Meds Home Medications and Allergies Home Medications ?Medication ?Instructions ?Recorded ?Confirmed ?Type dimethyl fumarate 240 mg 240 mg PO BID MS 07/27/17 History capsule,delayed release (Tecfidera) [id number] intramuscular 1 each IM DAILY Supple ment 07/27/17 02/07/25 History solifenacin 10 mg tablet (Vesicare) 10 mg PO ONCE urin ation 07/27/17 02/07/25 History vitamin B complex (B 1 tab PO ONCE Supplement 11/1002/07/25 History Complex-Vitamin B12 tablet) cholecalciferol (vitamin D3) 25 1,000 unit PO DAILY Brady pplement 01/29/18 02/07/25 History mcg (1,000 unit) capsule diphenhydramine HCl 25 mg capsule 25 mg PO QHS inflamm ation 01/29/18 02/07/25 History (Benadryl) tamsulosin 0.4 mg capsule (Flomax) 0.4 mg PO BID urina tion 01/11/21 02/07/25 History hydrochlorothiazide 25 mg tablet See Rx Instructions . Route 04/02/24 02/07/25 Rx .COMPLEX #90 tabs losartan 100 mg tablet See Rx Instructions .Route 0 08/19/24 02/07/25 Rx .COMPLEX #90 tabs potassium chloride 20 mEq See Rx Instructions .Route 0 09/13/24 02/07/25 Rx tablet,extended release(part/cryst) .COMPLEX #180 tabs modafinil 200 mg tablet (Provigil) 100 mg PO ONCE MS 0 10/16/24 02/07/25 History nitroglycerin 0.4 mg sublingual 0.4 mg sublingual Q5M PRN chest 10/16/24 02/07/25 Rx tablet pain #25 tabs pantoprazole 40 mg tablet,delayed See Rx Instructions .Route 11/13/24 02/07/25 Rx release .COMPLEX #90 tabs clopidogrel 75 mg tablet 75 mg PO DAILY #90 tabs 07/11/1702/07/25 Rx amlodipine 10 mg tablet 10 mg PO BID #180 tabs 01/2302/07/25 Rx bisoprolol fumarate 5 mg tablet 5 mg PO DAILY 01/23/25 02/07/25 History sodium,potassium,mag sulfates 17.5 See Rx Instructions PO .COMPLEX 01/31/25 Rx gram-3.13 gram-1.6 gram oral soln #354 mL (Suprep Bowel Prep Kit) levocetirizine 5 mg tablet (Xyzal) See Rx Instructions .Route .COMPLEX 02/07/25 02/07/25 History rosuvastatin 20 mg tablet (Crestor) See Rx Instruction s .Route .COMPLEX 02/07/25 02/07/25 History New Prescriptions to Start Prescriptions: Allergies Allergy/AdvReac Type Severity Reaction Status Date / Time No Known Allergies Allergy Verified 02/13/25 13:09 Exam *Routine HEENT Exam Head: Present normocephalic Eye: Present EOMI and PERRL ENT: Present mucous membranes moist *Routine Neck Exam Neck: Present supple *Routine Respiratory Exam Respiratory: Present CTA bilaterally *Routine Cardiovascular Exam Cardiovascular: Present RRR *Routine Abdominal Exam Abdominal: Present soft and normoactive bowel sounds; Absent tenderness *Routine Rectal Exam Rectal:: deferred *Routine Genitalia Exam Genitalia:: deferred *Routine Extremities Exam Extremities: Absent cyanosis, clubbing or edema *Routine Skin Exam Skin: Present warm; Absent rash *Routine Neurological Exam Neurological: Present alert and oriented X3 Assessment and Plan *Assessment and plan (1) Positive colorectal cancer screening using Cologuard test: Status: Acute Category: Medical Code(s): R19.5 - Other fecal abnormalities Plan A/P: 1. Positive Cologuard testing is the preprocedural diagnosis. The patient will be anesthetized/sedated using MAC sedation. The patient has been seen and examined. Cardiac and lung assessment prior to the examination is stable. Proceed with planned screening colonoscopy.
[2025-02-13] MEDS: LACTATED RINGERS 1000ML 1,000 ML 50 ML IV (13:06)
[2025-02-13 13:10] VITALS: BP 129/62; PULSE 65; RESP 18; TEMP 36.2; O2SAT 96
--- NOTE | 2025-02-13 13:26 | EXP.ANES.CKL ---
[facility] Disclaimer: The information contained in this section may have been updated after the patient was seen, as this information can be updated by other users. Medical History HLD (hyperlipidemia) HTN (hypertension) CAD (coronary artery disease) Multiple sclerosis Sinus bradycardia Surgical History History of local excision of skin lesion History of foot surgery History of hernia repair History of coronary artery stent placement History of colonoscopy Family History Other Family history of heart disease Social History Smoking Status: Current every day smoker tobacco type: cigarettes packs per day: 5 alcohol intake: never substance use type: denies use current occupational status: retired Travel in the last 8 weeks?: None household members: spouse housing: house current occupation: [employer] caffeine: Yes Have you lived/traveled outside US in past 30 days?: No Contact w/someone who lives/traveled outside US past 30 days?: No Exposure to someone with infectious disease in past 14 days?: No Do you have a fever (greater than 100.4 F or 38 C)?: No Have you tested positive for COVID-19?: No Exposed to someone with COVID-19 in past 14 days?: No Do you have a sore throat?: No Do you have a cough?: No Do you have any weakness?: No Do you have any diarrhea?: No Are you experiencing any unusual bleeding?: No Do you have any muscle aches/pain?: No Do you have any abdominal pain?: No Are you experiencing loss of taste or smell?: No [facility] Anesthesia Checklist Patient Identification Patient Identification: Arm Band and Family Structural Data Admitted From: Home Planned Operative Procedure/s: colonoscopy Consent for Planned Operative Procedure(s) Verified: Yes Verified Documents: Surgical Consent and History and Physical NPO Status Verified Time NPO: 00:00 Additional verifications Patient : No Anesthesia Reactions: Yes (nausea / vomiting) Hx Blood Transfusions: No Blood Transfusion Reaction: No Cephalosporin Allergy: No Previous Colonoscopy: No Airway Assessment Mallampati Score:: Class II C-Spine Mobility Assessed: Yes TMJ Mobility Assessed: Yes Dentition: Good Dentition Neurological Assessment Level of Consciousness: Awake, Alert, Appropriate and Follows Commands Hx Seizures: No Numbness or tingling in extremities: No Anesthesia Plan Anesthesia Risk discussed: Yes ASA Class: III Anesthesia Type: MAC Preoperative Comments Pre-Operative Comments: PONV
--- NOTE | 2025-02-13 13:40 | P.PCN_ITS ---
[facility] Procedure Note Date: 02/13/25 Time: 13:59 Procedure Note:: Colonoscopy Procedure Report: Colonoscopy with cold snare polypectomy Endoscopist: Bj Cagle II, MD Referring physician: Neil Lai MD Date of Procedure: February 13, 2025 Equipment: Olympus [id number] adult colonoscope Sedation: MAC sedation Indication: Mr. Tomlinson is a 64-year-old gentleman who is here for screening colonoscopy secondary to a positive Cologuard test. He does state that he had a colonoscopy here 5 or 6 years ago at which time a couple of benign polyps were removed. The patient reports no abdominal pain, weight loss, change in his bowel habits or rectal bleeding. He reports no family history of colon cancer. Procedure: Prior to the procedure, a history and physical exam was performed, and patient's medications and allergies were reviewed. The risks, benefits and alternatives of the sedation and procedure were discussed with the patient. All questions were answered and informed consent was obtained. The patient was brought to the procedure room. Patient identification and proposed procedure were verified by the physician and the nurse. The patient was placed in a left lateral decubitus position and the scope was passed under direct vision. Throughout the procedure, the patient's blood pressure, pulse, and oxygen saturations were monitored continuously. The colonoscopy was accomplished without difficulty. The patient tolerated the procedure well. Findings: On digital rectal examination there was normal rectal tone. There were no external hemorrhoids. The prostate was 2-3+, mildly firm but symmetric without nodules. The colonoscope was introduced through the anal canal to the rectum and advanced to the cecum. The ileocecal valve and appendiceal orifice were identified. The scope was advanced a short distance into the ileum which appeared grossly normal. The scope was then withdrawn into the colon. There were 11 colon polyps (cecum x 1 (4 mm), ascending x 2 (4 and 5 mm), transverse x 1 (4 mm), descending x 3 (3, 4 and 4 mm) and sigmoid x 4 (3, 4, 4 and 5 mm)). These were all removed via cold snare polypectomy. The remaining cecum, ascending and transverse colon and mucosa were grossly normal. There were scattered diverticuli throughout the descending and sigmoid colon (LEFT colon). The rectum itself was normal. Upon retroflexion within the rectum there were grade 2 internal hemorrhoids. The preparation was excellent throughout with Kelso Preparation Score of 9. The cecal time was 15 minutes. Impression: 1. Colonic polyps x 11 (all ranging in size from 3 to 5 mm) 2. Left-sided diverticulosis 3. Grade 2 internal hemorrhoids Plan: I will follow-up the polyp histology and based on the number of adenomatous colon polyps, I would recommend repeat surveillance colonoscopy again in 3 years. I would encourage psyllium bulking fiber supplementation on a long-term daily maintenance basis.
[2025-02-13 14:03] VITALS: BP 92/53; PULSE 60; RESP 18; TEMP 36.7; O2SAT 91
[2025-02-13 14:13] VITALS: BP 98/59; PULSE 54; O2SAT 94
[2025-02-13 14:23] VITALS: BP 95/56; PULSE 56; O2SAT 97
[2025-02-13 14:33] VITALS: BP 131/76; PULSE 59; O2SAT 97
== END 2025-02-13 14:33 | disposition home or self-care (01) ==
PROVIDERS: PCP Internal Medicine; Visit Provider Internal Medicine Gastroenterology
PROC: 0DJD8ZZ Inspection of Lower Intestinal Tract, Via Natural or Artificial Opening Endoscopic (ICD-10-PCS; CPT 45378; principal; 2025-02-13 14:00)
DX: Z12.11 Encounter for screening for malignant neoplasm of colon (principal); D12.2 Benign neoplasm of ascending colon; D12.0 Benign neoplasm of cecum; D12.4 Benign neoplasm of descending colon; D12.5 Benign neoplasm of sigmoid colon; K57.90 Diverticulosis of intestine, part unspecified, without perforation or abscess without bleeding; K64.8 Other hemorrhoids; I25.10 Atherosclerotic heart disease of native coronary artery without angina pectoris; E78.5 Hyperlipidemia, unspecified; I10 Essential (primary) hypertension; G35 Multiple sclerosis; F17.210 Nicotine dependence, cigarettes, uncomplicated; Z79.899 Other long term (current) drug therapy
CPT/HCPCS: 45385; J2405; J2704; J7120

== ENCOUNTER 2025-03-24 15:22 | Outpatient (CLI) | payer BC, SELFPAY ==
--- OUTSIDE RECORDS SUMMARY | 2025-03-24 15:27 | XMS_ITS | Encounter Summary ---
Author Organization Healthcare Address [address] [place] [address] Care Team Providers Care Dry House Operator Name Role Phone Neil Lai MD Primary Care Provider [phone] Encounter Details Date Type Department Care Team (Late st Contact Info) Description 11/20/2020 Orders Only [facility] Room [address] [place] [address] Vincenzo Worrell [facility] [address] [place], [place] [id number] Social History Tobacco Use Types Packs/Day Years [...] on filedocumented in this encounter Care Teams Dry House Operator Relationship Specialty Start Date End Date Neil Lai MD [address] [facility] [address] [place] [id number] PCP - General 11/06/20 documented as of this encounter
--- OUTSIDE RECORDS SUMMARY | 2025-03-24 15:27 | XMS_ITS | Clinical Summary ---
Author Organization [facility] Address [address] [place] [id number] Phone [email or web address] Care Team Providers Care Material Distributor Name Role Phone Neil Lai Primary Care [...] 94.3 kg (208 lb) 06/30/2015 7:44 PM DIRECTOR OF MANUFACTURING OPERATIONS Height 179.1 cm (5' 10.5 ) 06/30/2015 7:44 PM CS T Body Mass Index 29.42 06/30/2015 7:44 PM DIRECTOR OF MANUFACTURING OPERATIONS Plan of Treatment Health Maintenance Due Date Last Done Comments CT Colonography 1961 Colonoscopy 1961 Colorectal Cancer Screening Combo 1961 DNA Cologuard 1961 Dental Cleaning/Exam 1961 FIT or FOBT Test 1961 HIV Screening 1961 Hepatitis C Screening 1961 Sigmoidoscopy 1961 Annual Preventive Exam 1979 Hep B Infection Screening - Triple Screen 1979 Pneumococcal: 50+ Years (1 o f 2 - PCV) 1980 08/09/2014 Tetanus Diphtheria and Pertussis Immunization (1 - Tdap) 1980 Zoster Immunization (1 of 2) 2011 Covid-19 Immunization (1 - ) 02/24/2025 Influenza Immunization (#1) 02/24/202506/2017, 03/28/2016 Pneumococcal Immunization Discontinued 08/09/2014 HIB Immunization Aged Out No [...] patient's age to complete this topic Insurance ANTHEM IN [place]AY 5 Care Teams Material Distributor Relationship Specialty Start Date End Date Neil Lai, [place] [id number] PCP - General Blender Helper 08/29/19
--- OUTSIDE RECORDS SUMMARY | 2025-03-24 15:27 | XMS_ITS | Clinical Summary ---
Author Organization Healthcare Address [address] [place] [address] Care Team Providers Care Paralegal Internship Name Role Phone Neil Lai MD Primary Care Provider Family History Medical History Relation Name Comments [...] 2011 [facility]-Zoster Vaccines (1 of 2) 2011 [id number] Vaccine (1 - 20 24-25 season) 2025 [facility]Y-Influenza Vaccine (#1) 2025 [facility]Y-RSV Vaccine: 60+ [...] complete this topic Insurance [employer] Care Teams Paralegal Internship Relationship Specialty Start Date End Date Neil Lai MD [address] [facility] [address] [place] [address] PCP - General 11/06/20
--- NOTE | 2025-03-24 15:37 | XR_ITS ---
FINAL REPORT TECHNIQUE: Chest PA & Lateral CLINICAL HISTORY: Cough, sputum, right lateral chest pain COMPARISON: None FINDINGS: 2 views of the chest were performed. There is mild cardiomegaly. The mediastinum is within normal limits. The lungs are underinflated. There is no acute cardiopulmonary process. There are no pleural effusions. There is no pneumothorax. The bony thorax appears intact. IMPRESSION: No acute cardiopulmonary process. Reviewed, Interpreted and Dictated by Weston Almaraz MD Transcribed by Melina Mahan Authenticated and [facility]
== END 2025-03-24 23:59 | disposition home or self-care (01) ==
LOC: RAD 15:23
PROVIDERS: PCP Internal Medicine; Visit Provider Internal Medicine
DX: R07.9 Chest pain, unspecified (principal); R05.8 Other specified cough
CPT/HCPCS: 71046

== ENCOUNTER 2025-04-17 09:18 | Outpatient (CLI) | payer BC, SELFPAY ==
[2025-04-17 14:30] LABS: Hematocrit 46.4 % (42.0-52.0); Hemoglobin 15.7 g/dL (14.1-18.0); Immature Granulocytes % 0.4 %; Mean Corpuscular HGB Conc 33.8 g/dL (31.8-35.4); Mean Corpuscular Hemoglobin 31.1 pg (27.0-31.2); Mean Corpuscular Volume 91.9 fl (80-94); Nucleated Red Blood Cells % 0 %; Platelet Count 178 K/mm3 (142-424); Red Blood Count 5.05 M/mm3 (4.60-6.20); Red Cell Distribution Width-SD 44.0 fL; White Blood Count 5.0 K/mm3 (4.8-10.8)
[2025-04-17 15:28] LABS: Albumin Level 4.0 g/dl (3.5-5.0); Chloride 104 mmol/L (98-107)
[2025-04-17 15:29] LABS: Potassium 4.3 mmoL/L (3.5-5.1); Sodium 138 mmol/L (136-145)
[2025-04-17 15:31] LABS: Alanine Aminotransferase 51 U/L (12-78); Albumin/Globulin Ratio 1.5 (1.1-1.8); Alkaline Phosphatase 98 U/L (38-126); Anion Gap 11.3 mEq/L (5-15); Aspartate Amino Transferase 32 U/L (17-59); Bilirubin,Total 0.8 mg/dl (0.2-1.3); Blood Urea Nitrogen 17 mg/dl (9-20); Carbon Dioxide 27 mmol/L (22.0-30.0); Creatinine,Serum 0.90 mg/dl (0.66-1.25); Estimated Glomerular Filt Rate 85 ml/min (>60); GFR (African American) 103 ML/MIN (>60); Globulin 2.6 g/dL (1.3-3.2); Total Protein,Serum 6.6 g/dl (6.3-8.2); Triglycerides 76 mg/dl (30-150)
[2025-04-17 15:32] LABS: Calcium 8.9 mg/dl (8.4-10.2); Cholesterol 117 mg/dl (140-200); Glucose 83 mg/dl (74-100); HDL Cholesterol 34 mg/dl (40-60)
--- OUTSIDE RECORDS SUMMARY | 2025-04-18 10:50 | XMS_ITS | Encounter Summary ---
Author Organization [facility] ([place], [place], [place], [place]) Address [address] [place] [address] Care Team Providers Care Retail Performance Specialist Name Role Phone Unavailable Primary Care Provider Unavailabl e Encounter Details Date Type Department Care Team (Late st Contact Info) Description 09/08/2020 Transcribed Document [facility] [place] [address] ProviderXimena MD [address] [place] [address] Social History Tobacco Use Types [...] Problems Vitamin B deficiency / SNOMED CT 24366909 / Confirmed Myocardial infarction / SNOMED CT 86290494 / Confirmed Multiple sclerosis / SNOMED CT 14593101 / Confirmed Lack of energy / SNOMED CT 781721152 / Confirmed Hyperlipidemia / SNOMED CT 86586339 / Confirmed History of obstructive sleep apnea / IMO [id number] / Confirmed High blood pressure / SNOMED CT 60760254 / Confirmed Hard of hearing / SNOMED CT 301359125 / Confirmed Coronary artery disease / SNOMED CT 2278944345 / Confirmed Kidney anomaly, 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 right foot surgery. Colonoscopy ([id number]). Physical Examination VS/Measurements No qualifying data available, Measurements from flowsheet : Measurements 09/07/2020 14:45 EDT Height Source Measured Height Entry Format [place] Height/Length, MALAWIAN (ft) 5 ft Height/Length MALAWIAN 10 Inch CLINICALHEIGHT 177.8 cm [place] Body Weight 72 kg Weight Source Standing scale Weight Entry Format [place] Weight [place] Island[place] lb 217 lb CLINICALWEIGHT 98.64 kg Body Surface Area (BSA) 2.16 m2 Body Mass Index 31.2 kg/m2 HI General: Alert and oriented, No acute distress, obese. Eye: Pupils are equal, round and reactive to light, Extraocular movements are intact, glasses. HENT: Normocephalic, slightly [place]. Neck: Supple, Non-tender. Respiratory: Lungs are clear [...]
--- OUTSIDE RECORDS SUMMARY | 2025-04-18 10:50 | XMS_ITS | Encounter Summary ---
Author Organization [employer] ([place], [place], [place], [place]) Address [address] [place] [address] Care Team Providers Care Silverware Supervisor Name Role Phone Unavailable Primary Care Provider Unavailabl e Encounter Details Date Type Department Care Team (Late st Contact Info) Description 09/08/2020 Transcribed Document [facility] [place] [address] [place] [address] ProviderXimena MD [address] [place] [address] Social History Tobacco Use Types [...] Jackson MD - 09/08/2020 12:16 PM CDT [facility] Main OR IntraOp Summary Primary Physician: VIRGEN LEIVA MD-SUR Finalized Date/Time: 09/09/20 16:11:09 Pt. Name: NIRMALA WIGGINSO.B./Sex: 1960 Male Med Rec #: [id number] Physician: VIRGEN LEIVA MD-SUR Financial #: [id number] Pt. Type: O Room/Bed: Admit/Disch: 09/08/20 08:09:00 - 09/08/20 15:50:00 Institution: [facility] IntraOp Case Attendance Entry 1 Entry 2 Entry 3 Case Attendee VIRGEN LEIVA MD-SUR STAFFORD, WHITNEY, NA RHYNE, HEATHER, MD-QUINTON Role Performed Surgeon/Proceduralist, RETAIL OPERATIONS SPECIALIST/Nurse Shank Maker Anesthesiologist of First Record Time In 09/08/20 [...] Hazel, RN Pantano, Scott, LUCAS Role Performed Student Life Dean, First Director Of Undergraduate Admissions, First Director Of Undergraduate Admissions, First Time In 09/08/20 11:48:00 09/08/20 11:48:00 [...] BARAHONA MD-ANS TECH Role Performed Scrub, First Progress Clerk, Ancillary Anesthesiologist Time In 09/08/20 11:48:00 09/08/20 [...] WHITE Janie, LUCAS Role Performed Scrub, First Director Of Undergraduate Admissions, First Time In 09/08/20 12:45:00 09/08/20 13:05:00 Time Out 09/08/20 13:39:00 09/08/20 13:39:00 Procedure Hernia Repair Inguinal Hernia Repair Inguinal Robotic(Left) Robotic(Left) Other Attendee BREAK RELIEF Superficial Wound Closed By: Last Modified By: Dino Loaiza, Dino Rhodes, LUCAS 09/08/20 13:39:44 09/08/20 13:39:44 [facility] IntraOp Case Attendance Audit 09/08/20 13:39:44 Embroidery Patternmaker: IVÁNS Modifier: PANTANOS 1 <+> Time Out [...] Procedure Hernia Repair Inguinal Robotic(Left) 09/08/20 13:24:43 Embroidery Patternmaker: PANTANOS Modifier: PANTANOS <+> 11 Case Attendee <+> 11 Role Performed <+> 11 Time In <+> 11 Procedure <+> 11 Other Attendee 09/08/20 12:46:14 Embroidery Patternmaker: PANTANOS Modifier: PANTANOS 7 <+> Time Out 7 <*> Procedure Hernia Repair Inguinal Robotic(Left) 09/08/20 12:45:54 Embroidery Patternmaker: PANTANOS Modifier: PANTANOS <+> 9 Case Attendee <+> 9 Role Performed <+> 9 Time In <+> 9 Procedure <+> 9 Other Attendee <+> 10 Case Attendee <+> 10 Role Performed <+> 10 Time In <+> 10 Procedure 09/08/20 12:22:54 Embroidery Patternmaker: PANTANOS Modifier: PANTANOS <+> 1 Procedure 2 [...] 8 <*> Procedure Hernia Repair Inguinal Robotic(Left) [facility] IntraOp Case Times Entry 1 Patient In Room Time 09/08/20 11:48:00 Out Room Time 09/08/20 13:39:00 Anesthesia Start Time 09/08/20 11:48:00 Stop Time 09/08/20 13:39:00 Surgery / Procedure Times Start Time 09/08/20 12:16:00 Stop Time 09/08/20 13:24:00 Last Modified By: Dino Loaiza RN 09/08/20 13:39:29 [facility] IntraOp Case Times Audit 09/08/20 13:39:29 Embroidery Patternmaker: PANTANOS Modifier: PANTANOS <+> 1 Out Room Time <+> 1 Stop Time 09/08/20 13:29:28 Embroidery Patternmaker: PANTANOS Modifier: PANTANOS <+> 1 Stop Time 09/08/20 12:16:29 Embroidery Patternmaker: PANTANOS Modifier: PANTANOS <+> 1 Start Time [facility] IntraOp Cautery Entry 1 ESU Identification Cautery Type Monopolar ESU ID Number [id number] ID Type Hospital Number Cautery Settings Cut Setting 3 Coag Setting 3 ESU Grounding Pad Ground Pad Type Adult Grounding Pad Site Right thigh Grounding Pad Faye Mcleod, LUCAS Applied By Grounding Pad Site Warm, Dry, Intact Skin Condition Before Cautery Grounding Pad Site Unchanged Skin Condition After Cautery Last Modified By: Dino Loaiza RN 09/08/20 12:18:24 [facility] IntraOp Communication Entry 1 Communication To Family/Significant other Communication By Faye Mcleod RN Date and Time 09/08/20 12:10:00 Last Modified By: Dino Loaiza RN 09/08/20 12:17:59 [facility] IntraOp Counts Verification Entry 1 Procedure Hernia Repair Inguinal Robotic(Left) Count Info Count Type Sponge, Sharps, Miscellaneous Counts Verification Baseline/pre-procedure Sequence Count Results Correct, surgeon notified Counts Performed By Count Performed By BRITANY REES SCRUB (Scrub) TECH Count Performed By Dino Loaiza RN (RN) Last Modified By: Dino Loaiza RN 09/08/20 12:17:33 [facility] IntraOp Counts Final Entry 1 Procedure Hernia Repair Inguinal Robotic(Left) Final Count Info Count Type Sponge, Sharps, Miscellaneous Counts Verification Skin Closure/end of Sequence procedure Count Results Correct, surgeon notified Counts Performed By Count Performed By DASH WHITE (Scrub) Count Performed By Marilia Baptiste RN (RN) Last Modified By: Dino Loaiza RN 09/08/20 13:24:54 [facility] IntraOp Counts Final Audit 09/08/20 13:24:54 Embroidery Patternmaker: PANTANOS Modifier: PANTANOS 1 <*> Procedure Hernia Repair Inguinal Robotic(Left) 1 <*> Count Performed By (RN) Dino Loaiza RN 09/08/20 12:48:53 Embroidery Patternmaker: PANTANOLauren Modifier: PANTANOS 1 <*> Procedure Hernia Repair Inguinal Robotic(Left) 1 <*> Count Performed By (Scrub) BRITANY REES SCRUB TECH 1 <+> Count Performed By (RN) [facility] IntraOp Departure from OR Entry 1 Integumentary Assessment Integumentary WDL Assessment WDL Transfer/Handoff Transfer to PACU Phase I Handoff Method Bedside/Face to face, Online nursing summary Post-op Transport Stretcher/Gurney Via Patient Transport MONICA BASURTO, Accompanied by CYRUS FOSS NA Last Modified By: Dino Loaiza RN 09/08/20 12:20:24 [facility] IntraOp Dressing and Packing Entry 1 Type Dressing Location OPSITE Wound Dressing Item Skin Closure Glue Applied By MONICA BASURTO Last Modified By: Dino Loaiza RN 09/08/20 12:20:17 [facility] IntraOp Fire Risk Assessment Entry 1 Fire [...] Modified By: Dino Loaiza RN 09/08/20 12:18:34 [facility] IntraOp General Case Instructor Psychiatric Aide 1 Case Information OR OR 13 [facility] Case Level 1 Room Verified Yes Wound Class I - Clean Specialty SN General ASA Class 2 Diagnosis Preop Diagnosis LEFT INGUINAL HERNIA Postop Same As Preop Yes Postop Diagnosis LEFT INGUINAL HERNIA Last Modified By: Dino Loaiza RN 09/08/20 12:19:22 [facility] IntraOp Implant Log Entry 1 Type Implant (Synthetic) Implant Log Implant Type Mesh Implant MESH MIR 3D MAX LG Identification [id number] Description Implant Quantity 1 Implant Site LEFT INGUINAL Implant [id number] Identification Lot Number Implant Cr Bard:Davol Identification Marine Service Operator Name: Implant [id number] Identification Catalog Number Implant Has an Yes Expiration Date Implant Expiration 05/23/25 Date Tissue Implant Last Modified By: Dino Loaiza RN 09/08/20 12:48:32 [facility] IntraOp Intraoperative Assessment Entry 1 Handoff Method Online nursing summary Valid History / Yes Physical in Chart Preoperative Yes Checklist Reviewed/Evaluated Allergies Reviewed Yes Patient is Latex No Sensitive Level of WDL Consciousness (WDL = Alert, Oriented to Person, Place, and Time) Skin Assessment No Verified Present Upon IVs Arrival to OR Last Modified By: Dino Loaiza RN 09/08/20 12:17:10 [facility] IntraOp Intraoperative Equipment Entry 1 Type Monitoring [...] Modified By: Dino Loaiza RN 09/08/20 12:20:07 [facility] IntraOp Medication Admin Entry 1 Medication/Irrigant Marcaine 0.5% w/ epinephrine 1:200,000 30ml vial - [id number] Time Administered 09/08/20 12:20:00 Route of LOCAL Administration Dose Dose 10 Unit of Measure ml Administered By VIRGEN LEIVA MD-SUR Procedure Irrigation Last Modified By: Dino Loaiza RN 09/08/20 12:20:56 [facility] IntraOp Patient Positioning Entry 1 Procedure Hernia [...] Modified By: Dino Loaiza RN 09/08/20 12:22:51 [facility] IntraOp Sign In Entry 1 Patient, Site, [...] Modified By: Dino Loaiza RN 09/08/20 12:23:02 [facility] IntraOp Sign Out Entry 1 RN Confirmation [...] Modified By: Dino Loaiza RN 09/08/20 13:39:41 [facility] IntraOp Sign Out Audit 09/08/20 13:39:41 Embroidery Patternmaker: JORGE Modifier: JORGE <+> 1 RN Sign Out Signature Date/Time [facility] IntraOp Skin Prep Entry 1 Procedure Hernia Repair Inguinal Robotic(Left) Prescribed Yes Pre-Surgical Prep Completed Prep Area ABDOMEN AND BILATERAL GROINS Intraop Prep Prep Agents Chloraprep Prep by VIRGEN LEIVA MD-ASHLI Hair Removal Methods No hair removal performed Last Modified By: Dino Loaiza RN 09/08/20 12:19:45 [facility] IntraOp Skin Prep Audit 09/08/20 12:19:45 Embroidery Patternmaker: JORGE Modifier: JORGE 1 <+> Methods 1 <*> Procedure Hernia Repair Inguinal Robotic(Left) [facility] IntraOp Surgical Procedures Entry 1 Procedure Hernia Repair Inguinal Robotic Modifiers Left Additional (ROBOTIC ASSISTED LT Procedure INGUINAL HERNIA REPAIR Description WITH MESH) Primary Procedure Yes Primary Surgeon VIRGEN LEIVA MD-ASHLI Start 09/08/20 12:16:00 Stop 09/08/20 13:24:00 Anesthesia Type General Specialty SN General Wound Class I - Clean Last Modified By: Dino Loaiza RN 09/08/20 13:39:34 [facility] IntraOp Surgical Procedures Audit 09/08/20 13:39:34 Embroidery Patternmaker: JORGE Modifier: JORGE <+> 1 Stop [facility] IntraOp Temp Regulation Devices Entry 1 Temp Regulation Temperature Forced Air Warming Regulation Device device, Warm blankets Temperature Upper body Regulation Site Temperature Device SET AND MONITORED BY Setting ANESTHESIA Temperature CYRUS FOSS NA Regulation Device Applied by Last Modified By: Dino Loaiza RN 09/08/20 12:20:12 [facility] IntraOP Time Out Entry 1 Procedure to [...] Modified By: Dino Loaiza RN 09/08/20 12:17:01 [facility] IntraOP Time Out Audit 09/08/20 12:17:01 Embroidery Patternmaker: JORGE Modifier: TIMOTHYANOLauren <+> 1 Beta Virgil [...] [id number] Correct Billing Electronically signed by Tiffany Cox [place] Conversion Solar Photovoltaic Systems Engineer Cerner at 10/12/2022 8:52 PM CDT documented in this encounter Plan of Treatment Not on file documented as of this encounter Visit Diagnoses Not on filedocumented in this encounter
--- OUTSIDE RECORDS SUMMARY | 2025-04-18 10:50 | XMS_ITS | Referral Summary ---
Author Organization [employer] ([place], [place], [place], [place]) Address [address] [place] [address] Care Team Providers Care Mill Supervisor Name Role Phone Unavailable Primary Care [...]
--- OUTSIDE RECORDS SUMMARY | 2025-04-18 10:50 | XMS_ITS | Encounter Summary ---
Author Organization Healthcare Address [address] [place] [address] Care Team Providers Care Sweeper Brush Maker Machine Name Role Phone Neil Lai MD Primary Care Provider [phone] Encounter Details Date Type Department Care Team (Late st Contact Info) Description 11/20/2020 Orders Only [facility] Room E214 [address] [place] [address] Vincenzo Worrell [facility] of Dentistry [address] [place], [place] [id number] Social History Tobacco Use Types Packs/Day Years [...] on filedocumented in this encounter Care Teams Sweeper Brush Maker Machine Relationship Specialty Start Date End Date Neil Lai MD [address] [address] [place] [id number] PCP - General 11/06/20 documented as of this encounter
--- OUTSIDE RECORDS SUMMARY | 2025-04-18 10:50 | XMS_ITS | Clinical Summary ---
Author Organization [facility] Address [address] [place] [address] Phone [email or web address] Care Team Providers Care Airport Operations Supervisor Name Role Phone Neil Lai Primary Care [...] 94.3 kg (208 lb) 06/30/2015 7:44 PM DESIGN MAKER Height 179.1 cm (5' 10.5 ) 06/30/2015 7:44 PM CS T Body Mass Index 29.42 06/30/2015 7:44 PM DESIGN MAKER Plan of Treatment Health Maintenance Due Date [...] Insurance ANTHEM IN [place]AY 5 Care Teams Airport Operations Supervisor Relationship Specialty Start Date End Date Neil Lai, [place] [address] PCP - General Television Repair Teacher 08/29/19
--- OUTSIDE RECORDS SUMMARY | 2025-04-18 10:50 | XMS_ITS | Encounter Summary ---
Author Organization [employer] ([place], [place], [place], [place]) Address [address] [place] [address] Care Team Providers Care Family Court Counsellor Name Role Phone Unavailable Primary Care Provider Unavailabl e Encounter Details Date Type Department Care Team (Late st Contact Info) Description 09/07/2020 Transcribed Document [facility] [place] [facility] [place] [address] ProviderXimena MD [address] [place] [address] Social History Tobacco Use Types [...] Source : Measured Height Entry Format : [place] Height, Feet : 5 ft(Converted to: 152 cm, 60 Inch) Height, Inches : 10 Inch(Converted to: 0 ft 10 Inch, 25.40 cm) Clinical Height : 177.8 cm Weight Source : Standing scale Weight Entry Format : [place] Clinical Dosing Weight : 98.64 kg Weight, Pounds : 217 lb Body Surface Area (BSA) : 2.16 m2 Body Mass Index : 31.2 kg/m2 (HI) [place] Body Weight : 72 kg Bre Marroquin RN - 09/08/2020 8:28 EDT Health Histories Smoking Status : 10 or more cigarettes (1/2 pack or more)/day in last 30 days Smokeless Tobacco Status : Never Desires Tobacco Cessation Medication : No Reason for No Tobacco Cessation Medication : Refuses FDA approved medications Implant/Device Type, Mental Health Worker and Model : pins in foot stents [...] Sekou Bruno Rn - 09/07/2020 14:45 EDT [place] Suicide Severity Rating Scale (C-SSRS) CSSRS Past [...] Ambulatory Legal Guardian : Sibling Support Person/Patient Sweeper Driver : Yes Support Person/Pt Rep Name : Barry Tomlinson - brother Support Person/Pt Rep Contact Information : [phone] Want Family/Rep/Phys Notified of Admit : No Emergency Contact #1 : ` Emergency Contact #1 Phone Number : ` Emergency Contact #1 Relationship : ` Emergency Contact #2 : ` Emergency Contact #2 Phone Number : ` Emergency Contact #2 Relationship : ` Information Obtained From : Patient Primary Language : Irish Communication Barrier : None Nursing Coordinator Needed : No Sekou Bruno Rn - [...]
--- OUTSIDE RECORDS SUMMARY | 2025-04-18 10:50 | XMS_ITS | Clinical Summary ---
Author Organization [employer] ([place], [place], [place], [place]) Address [address] [place] [address] Care Team Providers Care Internist Medical Doctor Md Name Role Phone Unavailable Primary Care Provider [...]
--- OUTSIDE RECORDS SUMMARY | 2025-04-18 10:50 | XMS_ITS | Encounter Summary ---
Author Organization [employer] ([place], [place], [place], [place]) Address [address] [place] [address] Care Team Providers Care Panel Coverer Name Role Phone Unavailable Primary Care Provider Unavailabl e Encounter Details Date Type Department Care Team (Late st Contact Info) Description 09/08/2020 Transcribed Document [facility] [place] Family Medicine [address] [place] [address] ProviderXimena MD [address] [place] [address] Social History Tobacco Use Types Packs/Day Years Used Date Smoking Tobacco: Never Assessed Sex and Gender Information Value Date Recorded Sex Assigned at Not on file Legal Sex Male 7:16 PM CDT Gender Identity Not on file Sexual Orientation Not on file documented as of this encounter Miscellaneous Notes * Cerner Conversion Note - Ximena ProviderMD - 09/08/2020 12:16 PM CDT [facility] Main OR Preop Summary Primary Physician: VIRGEN LEIVA MD-SUR Finalized Date/Time: 09/08/20 15:34:11 Pt. Name: NIRMALA WIGGINSO.B./Sex: 1960 Male Med Rec #: [id number] Physician: VIRGEN LEIVA MD-SUR Financial #: [id number] Pt. Type: O Room/Bed: Admit/Disch: 09/08/20 08:09:00 - Institution: [facility] PreOp Case Times Entry 1 In Preop 09/08/20 08:22:00 Ready for Holding n/a Room Patient Ready for 09/08/20 09:15:00 Surgery Patient Out of Preop 09/08/20 11:45:00 Patient Out of n/a Holding Room Last Modified By: Alfreda Judge, RN 09/08/20 15:34:10 [facility] PreOp Case Times Audit 09/08/20 15:34:10 Spindle Plumber: BIGG Modifier: SANAM <+> 1 Patient Out of Preop 09/08/20 09:11:19 Spindle Plumber: BIGG Modifier: BIGG 1 <*> Patient Ready for Surgery 09/08/20 09:10:00 Finalized By: Alfreda Judge RN Document Signatures Signed By: Alfreda Judge RN 09/08/20 15:34 Electronically signed by Tiffany [facility] Conversion Hog Man Cerner at 10/12/2022 9:07 PM CDT documented in this encounter Plan of Treatment Not on file documented as of this encounter Visit Diagnoses Not on filedocumented in this encounter
--- OUTSIDE RECORDS SUMMARY | 2025-04-18 10:50 | XMS_ITS | Clinical Summary ---
Author Organization [facility] Address [address] [place] [address] Care Team Providers Care Imaging Tech Name Role Phone Neil Lai MD Primary Care Provider [phone] Family History Medical History Relation Name Comments [...] Date Last Done Comments [facility]-Depression Screening 1960 [facility]-Infant/Child/Adol SDOH Screenings 1960 [facility]- SDOH Screenings 1979 [facility]-Adult SDOH Screenings 1979 [facility]-DTaP,Tdap,and Td Vaccine s (1 - Tdap) 1980 CT Colonography 2006 Colonoscopy 2006 FIT-DNA 2006 FIT 2006 FOBT 2006 Sigmoidoscopy 2006 [facility]-Colorectal Cancer Screening 2006 [facility]-Pneumococcal Vaccine: 50 + Years (1 of 1 - PCV) 2011 [facility]-Zoster Vaccines (1 of 2) 2011 JFA-[id number] Vaccine (1 - 20 24-25 season) 2025 [...] complete this topic Insurance [employer] Care Teams Imaging Tech Relationship Specialty Start Date End Date Neil Lai MD [address] [address] [place] [address] PCP - General 11/06/20
--- OUTSIDE RECORDS SUMMARY | 2025-04-18 10:50 | XMS_ITS | Encounter Summary ---
Author Organization [employer] ([place], [place], [place], [place]) Address [address] [place] [address] Care Team Providers Care Assembler Semiconductor Name Role Phone Unavailable Primary Care Provider Unavailabl e Encounter Details Date Type Department Care Team (Late st Contact Info) Description 09/08/2020 Transcribed Document [facility] [place] Medicine [address] [place] [address] ProviderXimena MD [address] [place] [address] Social History Tobacco Use Types [...] Jackson MD - 09/08/2020 3:36 PM CDT [facility] [place] [address] NIRMALA WIGGINS :1960 Visit Time:09/08/2020 [...] appointment September 16 at 1:30 pm Where: [address] [place] [address] Business (1) Medications What How Much When Instructions Next Dose acetaminophen-hydrocodone (acetaminophen-HYDROcodone 325 mg-5 mg oral tablet) 1-2 tabs Oral Every 6 Hours as needed for for pain Pickup at [facility] amLODIPine (amLODIPine 5 mg oral [...] 1 Capsule(s) Oral Every Day Pharmacy Information [facility]: [address] [place] [address] [phone] Take your medications faithfully. Do NOT skip [...] and water are not available, use hand rpg programmer. ? Change your dressing as told by [...] allowed to take sponge baths. ??? Take byzn-vsw-bzlyvtl and prescription medicines only as told by your health care provider. ??? To prevent or treat constipation while you are taking prescription pain medicine, your health care provider may recommend that you: ? Drink enough fluid to keep your urine pale yellow. ? Take xhst-qnv-mrxxlke or prescription medicines. ? Eat foods that [...] 09/21/2017 Document Revised: 11/20/2019 Document Reviewed: 09/21/2017 [facility] Patient Education ?? 2020 [facility] [employer] Emergency Awareness and Preventative Care STROKE [...] Assistance with quitting is available by contacting 5-158-WAIKPixelSteamNOW. This is a free resource providing counseling, support, and referral. Or you may contact your personal physician. [employer] Suicide Prevention Lifeline: The National Suicide Prevention [...] was given the opportunity to ask questions. Patient/Rn Telephonic Name: Patient/Rn Telephonic Signature: Relationship to Patient: Clinician/Hospital Rn Telephonic Signature: Date: documented in this encounter Plan of Treatment Not on file documented as of this encounter Visit Diagnoses Not on filedocumented in this encounter
--- OUTSIDE RECORDS SUMMARY | 2025-04-18 10:50 | XMS_ITS | Data Portability ---
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 Mutliple Sclerosis 2. [...] needed 2. I spoke of my intended custodial at the end of 2023. 3. I proposed MRI's but he states that he is very claustrophobic and would have to be heavily sedated to have MRI. 4. Follow up in 6 months prior to my custodial, sooner if needed. NOTE: PCP is Neil Green MD. [email or web address] Not available 01/22/2024 09:18:46 05/29/2024 05/29/2024 Assessment: [...] retire last patient visits end of June 5. Follow-up in [address] Juan De in this department That appointment scheduled 11/25/24 His primary medical doctor is Neil Green MD in [place] [address] Not available 05/30/2024 08:06:50 Plan of Treatment Reminders Order Date Submit Date Provider Last Modified By Organization Details Last Modified Time Details Appointments RECHECK 2024 08:45A M MELINA GAN MD Not available Not available Not available NEUROLOGY RECHECK 2025 08:30A M JUAN DE DO Not available Not available Not available Lab urinalysi s panel, auto [email or web address] [facility], [address], [address], 02/07/2024 15:33:28 PSA, serum or plasma 2023 024 [email or web address] [facility], [address], [place], [address], 02/07/2024 15:25:16 Referral None recorded. Procedures None recorded. Surgeries None recorded. Imaging None recorded. Medication Orders modafinil 200 mg tablet 2024 025 [facility], [address], [address], 12/18/2024 08:49:42 modafinil 200 mg tablet 2023 024 [facility], [address] [place], [address], 05/30/2024 08:10:01 tamsulosi n 0.4 mg capsule 2023 024 [facility], [address], [address], 02/07/2024 15:25:23 solifenac in 10 mg tablet 2023 024 [facility], [address], [address], 02/07/2024 15:25:25 Patient TargetsNo targets recorded. Patient InstructionsNo instructions recorded. Reason for Referral None Reported. Results Created Date Observation Date Name Description Value Unit Range Abnormal Flag Note LastModifiedBy Organization Detail LastModifiedTime 02/07/2002/07/2024 PSA, serum or plasm a PSA 0.48 NG/mL 0.0 - 4.0 Not Available [facility] [address], [place], [address], 02/07/2024 15:12:23 02/07/20 24 02/07/2024 urina lysis panel , auto Unknown Analyte Clean Catch Not Available [facility] [address], [place], [address], 02/07/2024 14:51:30 02/07/20 24 02/07/2024 urina lysis panel , auto Unknown Analyte Yellow Not Available [facility] [address], [place], [address], 02/07/2024 14:51:30 02/07/20 24 02/07/2024 urina lysis panel , auto Unknown Analyte Clear Not Available [facility] [address], [place], [address], 02/07/2024 14:51:30 02/07/20 24 02/07/2024 urina lysis panel , auto Unknown Analyte 1.015 Not Available [facility] [address], [place], [address], 02/07/2024 14:51:30 02/07/20 24 02/07/2024 urina lysis panel , auto Unknown Analyte 1.003- 1.035 Not Available [facility] [address], [place], [address], 02/07/2024 14:51:30 02/07/20 24 02/07/2024 urina lysis panel , auto Unknown Analyte 5.0 Not Available [facility] [address], [place], [address], 02/07/2024 14:51:30 02/07/20 24 02/07/2024 urina lysis panel , auto Unknown Analyte 5.0-8. 0 Not Available [facility] [address], [place], [address], 02/07/2024 14:51:30 02/07/20 24 02/07/2024 urina lysis panel , auto Unknown Analyte Negati ve Not Available [facility] [address], [place], [address], 02/07/2024 14:51:30 02/07/20 24 02/07/2024 urina lysis panel , auto Unknown Analyte Negati ve Not Available [facility] [address], [place], [address], 02/07/2024 14:51:30 02/07/20 24 02/07/2024 urina lysis panel , auto Unknown Analyte Negati ve Not Available [facility] [address], [place], [address], 02/07/2024 14:51:30 02/07/20 24 02/07/2024 urina lysis panel , auto Unknown Analyte Negati ve Not Available [facility] [address], [place], [address], 02/07/2024 14:51:30 02/07/20 24 02/07/2024 urina lysis panel , auto Unknown Analyte Negati ve Not Available [facility] [address], [place], [address], 02/07/2024 14:51:30 02/07/20 24 02/07/2024 urina lysis panel , auto Unknown Analyte Negati ve Not Available [facility] [address], [place], [address], 02/07/2024 14:51:30 02/07/20 24 02/07/2024 urina lysis panel , auto Unknown Analyte Normal Not Available [facility] [address], [place], [address], 02/07/2024 14:51:30 02/07/20 24 02/07/2024 urina lysis panel , auto Unknown Analyte Normal Not Available [facility] [address], [place], [address], 02/07/2024 14:51:30 02/07/20 24 02/07/2024 urina lysis panel , auto Unknown Analyte Negati ve Not Available [facility] [address], [place], [address], 02/07/2024 14:51:30 02/07/20 24 02/07/2024 urina lysis panel , auto Unknown Analyte Negati ve Not Available [facility] [address], [place], [address], 02/07/2024 14:51:30 02/07/20 24 02/07/2024 urina lysis panel , auto Unknown Analyte 1 mg/dl Not Available [facility] [address], [place], [address], 02/07/2024 14:51:30 02/07/2002/07/2024 urina lysis panel , auto Unknown Analyte Normal 1 mg/dl Not Available [facility] [address], [place], [address], 02/07/2024 14:51:30 02/07/20 24 02/07/2024 urina lysis panel , auto Unknown Analyte Negati ve Not Available [facility] [address], [place], [address], 02/07/2024 14:51:30 02/07/20 24 02/07/2024 urina lysis panel , auto Unknown Analyte Negati ve Not Available [facility] [address], [place], [address], 02/07/2024 14:51:30 02/07/20 24 02/07/2024 urina lysis panel , auto Unknown Analyte Negati ve Not Available [facility] [address], [place], [address], 02/07/2024 14:51:30 02/07/20 24 02/07/2024 urina lysis panel , auto Unknown Analyte Negati ve Not Available [facility] [address], [place], [address], 02/07/2024 14:51:30 05/29/20 24 05/29/2024 COMPL ETE BLOOD COUNT white blood cells 5.8 10*3/ uL 3.8-10 .8 normal Not Available [facility] [address] [place] [address], [address], 05/29/2024 13:19:43 05/29/20 24 05/29/2024 COMPL ETE BLOOD COUNT red blood cells 5.05 10*6/ uL 4.20-5 .80 normal Not Available [facility] [address] [place] [address], [address], 05/29/2024 13:19:43 05/29/20 24 05/29/2024 COMPL ETE BLOOD COUNT hemoglobin 15.8 g/dL 14.0-1 8.0 normal Not Available [facility] [address] [place] [address], [address], 05/29/2024 13:19:43 05/29/20 24 05/29/2024 COMPL ETE BLOOD COUNT hematocrit 46.3 % 40.0-5 2.0 normal Not Available [facility] [address] [place] [address], [address], 05/29/2024 13:19:43 05/29/20 24 05/29/2024 COMPL ETE BLOOD COUNT MCV 92 fL 80-100 normal Not Available [facility] [address] [place] [address], [address], 05/29/2024 13:19:43 05/29/20 24 05/29/2024 COMPL ETE BLOOD COUNT MCH 31 pg 26-35 normal Not Available [facility] [address] [place] [address], [address], 05/29/2024 13:19:43 05/29/20 24 05/29/2024 COMPL ETE BLOOD COUNT MCHC 34 g/dL 32-36 normal Not Available [facility] [address] [place] [address], [address], 05/29/2024 13:19:43 05/29/20 24 05/29/2024 COMPL ETE BLOOD COUNT RDW 13.6 % 11.0-1 5.0 normal Not Available [facility] [address] [place] [address], [address], 05/29/2024 13:19:43 05/29/20 24 05/29/2024 COMPL ETE BLOOD COUNT MPV 9.4 fL 6.2-10 .5 normal Not Available [facility] [address] [place] [address], [address], 05/29/2024 13:19:43 05/29/20 24 05/29/2024 COMPL ETE BLOOD COUNT platelet count 166 10*3/ uL 150-40 0 normal Not Available [facility] [address] [place] [address], [address], 05/29/2024 13:19:43 05/29/20 24 05/29/2024 COMPL ETE BLOOD COUNT neutrophil,a bsolute 3.5 10*3/ uL 1.6-8. 4 normal Not Available [facility] [address] [place] [address], [address], 05/29/2024 13:19:43 05/29/20 24 05/29/2024 COMPL ETE BLOOD COUNT lymphocyte,a bsolute 1.3 10*3/ uL 0.4-5. 1 normal Not Available [facility] [address] [place] [address], [address], 05/29/2024 13:19:43 05/29/20 24 05/29/2024 COMPL ETE BLOOD COUNT monocyte,abs olute 0.7 10*3/ uL 0.0-1. 2 normal Not Available [facility] [address] [place] [address], [address], 05/29/2024 13:19:43 05/29/20 24 05/29/2024 COMPL ETE BLOOD COUNT eosinophil,a bsolute 0.2 10*3/ uL 0.0-0. 8 normal Not Available [facility] [address] [place] [address], [address], 05/29/2024 13:19:43 05/29/20 24 05/29/2024 COMPL ETE BLOOD COUNT basophil,abs olute 0.1 10*3/ uL 0.0-0. 3 normal Not Available [facility] [address] [place] [address], [address], 05/29/2024 13:19:43 05/29/20 24 05/29/2024 COMPL ETE BLOOD COUNT % neutrophils 61.0 % 42.0-7 8.0 normal Not Available [facility] [address] [place] [address], [address], 05/29/2024 13:19:43 05/29/20 24 05/29/2024 COMPL ETE BLOOD COUNT % lymphocytes 22.1 % 11.0-4 7.0 normal Not Available [facility] [address] [place] [address], [address], 05/29/2024 13:19:43 05/29/20 24 05/29/2024 COMPL ETE BLOOD COUNT % monocytes 12.3 % 0.0-11 .0 high Not Available [facility] [address] [place] [address], [address], 05/29/2024 13:19:43 05/29/20 24 05/29/2024 COMPL ETE BLOOD COUNT % eosinophils 3.7 % 0.0-7. 0 normal Not Available [facility] [address] [place] [address], [address], 05/29/2024 13:19:43 05/29/20 24 05/29/2024 COMPL ETE BLOOD COUNT % basophils 0.9 % 0.0-3. 0 normal Not Available [facility] [address] [place] [address], [address], 05/29/2024 13:19:43 05/29/20 24 05/29/2024 COMPL ETE BLOOD COUNT nucleated red cells 0.0 % 0.0-0. 9 normal Not Available [facility] [address] [place] [address], [address], 05/29/2024 13:19:43 05/29/20 24 05/29/2024 COMPL ETE BLOOD COUNT nucleated RBCs, absolute 0.00 10*3/ uL not estab. normal Not Available [facility] [address] [place] [address], [address], 05/29/2024 13:19:43 05/29/20 24 05/29/2024 VITAM IN D 25-OH vitamin D 25-oh, total 57 NG/mL >=30 NG/mL normal Not Available [facility] [address] [place] [address], [address], 05/29/2024 13:53:05 05/29/20 24 05/29/2024 COMP. METAB OLIC PANEL glucose 93 mg/dL 74-100 normal Not Available [facility] [address] [place] [address], [address], 05/29/2024 14:23:10 05/29/20 24 05/29/2024 COMP. METAB OLIC PANEL blood urea nitrogen 12 mg/dL 6-20 normal Not Available [facility] [address] [place] [address], [address], 05/29/2024 14:23:10 05/29/20 24 05/29/2024 COMP. METAB OLIC PANEL creatinine 0.85 mg/dL 0.70-1 .28 normal Not Available [facility] [address] [place] [address], [address], 05/29/2024 14:23:10 05/29/20 24 05/29/2024 COMP. METAB OLIC PANEL BUN/creatini ne ratio 14 (calc ) 10-20 normal Not Available [facility] [address] [place] [address], [address], 05/29/2024 14:23:10 05/29/20 24 05/29/2024 COMP. METAB OLIC PANEL sodium 142 mmol/ L 136-14 5 normal Not Available [facility] [address] [place] [address], [address], 05/29/2024 14:23:10 05/29/20 24 05/29/2024 COMP. METAB OLIC PANEL potassium 4.0 mmol/ L 3.4-5. 0 normal Not Available [facility] [address] [place] [address], [address], 05/29/2024 14:23:10 05/29/20 24 05/29/2024 COMP. METAB OLIC PANEL chloride 108 mmol/ L 98-107 high Not Available [facility] [address] [place] [address], [address], 05/29/2024 14:23:10 05/29/20 24 05/29/2024 COMP. METAB OLIC PANEL carbon dioxide 22 mmol/ L 22-31 normal Not Available [facility] [address] [place] [address], [address], 05/29/2024 14:23:10 05/29/20 24 05/29/2024 COMP. METAB OLIC PANEL anion gap 12 (calc ) 7-25 normal Not Available [facility] [address] [place] [address], [address], 05/29/2024 14:23:10 05/29/20 24 05/29/2024 COMP. METAB OLIC PANEL calcium 9.6 mg/dL 8.6-10 .2 normal Not Available [facility] [address] [place] [address], [address], 05/29/2024 14:23:10 05/29/20 24 05/29/2024 COMP. METAB OLIC PANEL total protein 6.9 g/dL 6.4-8. 3 normal Not Available [facility] [address] [place] [address], [address], 05/29/2024 14:23:10 05/29/20 24 05/29/2024 COMP. METAB OLIC PANEL albumin 4.3 g/dL 3.5-5. 2 normal Not Available [facility] [address] [place] [address], [address], 05/29/2024 14:23:10 05/29/20 24 05/29/2024 COMP. METAB OLIC PANEL globulin 2.6 1.5-4. 5 normal Not Available [facility] [address] [place] [address], [address], 05/29/2024 14:23:10 05/29/20 24 05/29/2024 COMP. METAB OLIC PANEL albumin/glob ulin ratio 1.7 (calc ) 1.1-2. 5 normal Not Available [facility] [address] [place] [address], [address], 05/29/2024 14:23:10 05/29/20 24 05/29/2024 COMP. METAB OLIC PANEL bilirubin, total 0.5 mg/dL 0.1-1. 2 normal Not Available [facility] [address] [place] [address], [address], 05/29/2024 14:23:10 05/29/20 24 05/29/2024 COMP. METAB OLIC PANEL alkaline phosphatase 123 U/L 40-129 normal Not Available [facility] [address] [place], [address], 05/29/2024 14:23:10 05/29/20 24 05/29/2024 COMP. METAB OLIC PANEL AST 19 U/L 0-40 normal Not Available [facility] [address] [place], [address], 05/29/2024 14:23:10 05/29/20 24 05/29/2024 COMP. METAB OLIC PANEL ALT 27 U/L 0-41 normal Not Available [facility] [address] [place], [address], 05/29/2024 14:23:10 05/29/20 24 05/29/2024 COMP. METAB OLIC PANEL GFR 98 >= 60 normal NOT E New calcu latio n for GFR (CKD- EPI 2020) is formu lated witho ut race adjus tment facto rs at the recom menda tion of the Abdelrahman Hoffman y Leda atlashawn and Ayush mcgee [facility] . This calcu latio n has not been valid ated in pregn ant women . For pedia tric patie nts refer to https ://rodolfo vu.o rg/ryan juarez s/KDO QI/gf r_cal culat orPed Not Available [facility] [address] [place], [address], 05/29/2024 14:23:10 Result Notes None recorded. Problems Name Problem SNOMED Code Status Onset Date Resolution Date Notes Provider Name and Address Organization Details Recorded Time Multiple sclerosis 28909062 Active 2015 From Automated Load;Provi gail: Nirmala Taylor;Stat us: Active Not Available [facility] 2 18:23:07 Lack of energy 069773642 Active 2015 From Automated Load;Provi gail: Nirmala Taylor;Stat us: Active Not Available [facility] 2 18:23:07 Vitamin B deficienc y 89234138 Active 2015 From Automated Load;Provi gail: Brandon Nirmala;Stat us: Active Not Available [facility] 2 18:23:07 Chronic fatigue syndrome 45644796 Active 2024 JUAN DE, DO [address] [place], [address] , [facility] 5 08:09:11 Problem Notes None recorded. Procedures Surgical History Date Name Laterality Status Provider Name and Address Organization Details Recorded Time 4 excision of lesion of skin completed Aura Garay [facility] 05/29/2024 11:11:53 8 Tympanogram completed PHILIP SCOTT, AUD [address] [place], [address], [facility] 06/21/2018 09:43:46 8 Audiogram completed PHILIP SCOTT, AUD [address] [place], [address], [facility] 06/21/2018 09:43:43 8 Control Anterior Epistaxis completed Lashell [facility] 06/21/2018 08:32:38 8 Endoscopy Nasal; Biospy, Polypectomy or Debridement completed Lashell Lynn [facility] 06/21/2018 09:26:44 Hernia Repair completed Brody James [facility] 10/07/2016 09:20:22 insertion of arterial stent completed Simona Hanna [facility] 07/24/2023 08:10:56 colonoscopy completed Aura Garay [facility] 05/29/2024 11:12:29 Imaging Results None recorded. Procedure Notes None recorded. Medical Equipment None Reported. Allergies No known drug allergies Medications Name Sig Start Date Stop Date Status Note LastModified by Organization Details LastModified Time methylphe nidate 10 mg tablet Take one BID as directed 12/18 completed Not Available Not Available Not Available Plavix 75 mg tablet Daily 05/07 completed Duration : 30 days;Jeffry quency: daily;Me dication Descript ion: clopidog rel; Dosage:1 ; Route:or al; refills: 0; Quantity :30 tablet Not Available Not Available Not Available modafinil 200 mg tablet Take 0.5 tablets twice a day by oral route for 90 days. 2024 active Not Available Not Available Not Avai lable tamsulosi n 0.4 mg capsule Take 1 capsule by mouth twice daily 2024 active Not Available Not Available Not Avai [...] 1 tablet every day by oral route. 12/18 completed no longer takes (05/29/20 24) Not Available [...] Take 1 tablet by mouth once daily 2024 active Not Available Not Available Not Avai [...] dimethyl fumarate 240 mg capsule,d elayed release active Not Available Not Available Not Available Prostate Control 07/29 completed Not Available Not Available Not Available Vitals Date Recorded Body height Body mass index (BMI) Body weight Heart rate Oxygen saturation Oxygen saturation in Arterial blood by Pulse oximetry Systolic And Diastolic Provider Name and Address Organization Details Last Updated DateTime 4 180.34 cm 32.4 kg/m2 396364. 53 g 62 /min 96 % 96 % 138/84 mm[Hg] [facility] 4 08:12:22 Date Recorded Body height Body mass index (BMI) Body weight Heart rate Oxygen saturation Oxygen saturation in Arterial blood by Pulse oximetry Systolic And Diastolic Provider Name and Address Organization Details Last Updated DateTime 5 177.8 cm 34.1 kg/m2 904638. 98 g 56 /min 99 % 99 % 124/68 mm[Hg] Litzy Medrano [facility] 5 08:11:21 Date Recorded Body height Body mass index (BMI) Body weight Heart rate Oxygen saturation Oxygen saturation in Arterial blood by Pulse oximetry Systolic And Diastolic Provider Name and Address Organization Details Last Updated DateTime 4 180.34 cm 32.3 kg/m2 838863. 94 g 70 /min 97 % 97 % 130/76 mm[Hg] Simona Hanna [facility] 4 08:49:10 Date Recorded Body height Body mass index (BMI) Body weight Provider Name and Address Organization Details Last Updated DateTime 02/07/2024 180.34 cm 32.1 kg/m2 541937.25 g Lissa Fisher [facility] 02/07/2024 14:52:40 Date Recorded Body height Body mass index (BMI) Body weight Heart rate Oxygen saturation Oxygen saturation in Arterial blood by Pulse oximetry Systolic And Diastolic Provider Name and Address Organization Details Last Updated DateTime 4 180.34 cm 32.3 kg/m2 242577. 24 g 75 /min 96 % 96 % 126/70 mm[Hg] Aura Myeshaleslee [facility] 4 11:13:59 Social History Question Answer Notes LastModified by Organizat ion Details LastModified Time Tobacco Smoking Status Current Some Day Smoker [facility] 08:47:33 What Is Your Level Of Caffeine Consumption? Moderate [email or web address] Information not available 10/07/2016 How Much Tobacco Do You Chew? None Information not available 05/27/2019 Which Illicit Or Recreational Drugs Have You Used? None Information not available 05/27/2019 Live Alone Or With Others? With Others Information not available 05/27/2019 Marital Status [email or web address] Informatio n not available 10/07/2016 What Was The Date Of Your Most Recent Tobacco Screening? 02/07/2024 [email or web address] Information not available 02/07/2024 At What Age Did You Start Smoking Tobacco? 22 Information not available 07/24/2023 How Much Tobacco Do You Smoke? 2 PPW Information not available 07/24/2023 On What Date Was Tobacco Cessation Counseling Provided? 02/09/2022 [email or web address] Information not available 02/09/2022 Sex: Unknown Functional Status Question Answer Note LastModified by Organizat ion Details LastModified Time What is your level of alcohol consumption? Occasional [email or web address] Information not available 10/07/2016 Do you or have you ever used smokeless tobacco? Never used smokeless tobacco Information not available 05/27/2019 What is your occupation? [employer] [email or web address] Information not available 10/07/2016 Do you or have you ever used e-cigarettes or vape? Never used electronic cigarettes Information not available 05/27/2019 Mental Status None recorded. Family History Relationship Description Onset Age of this Age Resolved Age Notes LastModified by Organization Details LastModified Time Brother Diabetes mellitus [email or web address] Not available 2016 09:18:54 Brother Asthma [email or web address] Not available 05/07/2018 09:39:20 Sister Diabetes mellitus [email or web address] Not available 2016 09:18:54 Unspecified Relation Acute myocardial infarction [email or web address] Not available 10/07 09:19:04 Unspecified Relation Family history of stroke [email or web address] Not available 2016 09:19:31 Father Heart disease [email or web address] Not available 2016 09:19:14 Father Hypertensive disorder [email or web address] Not available 2016 09:19:22 Medical History Condition Response Anesthesia Complications N Neurological Problems Y Diabetes N Bleeding Disorder Y Cancer N Reflux/GERD Y Sleep Apnea Y High Cholesterol Y Hypertension Y Immunizations Vaccine Type Date Status Note Provider Nam e and Address Organization Details Recorded Time Pneumococcal Conjugate, unspecified formulation 5 completed Not Available [facility] 05/11/2022 18:23:07 influenza, unspecified formulation 6 completed Not Available [facility] 05/11/2022 18:23:07 Influenza, split virus, quadrivalent, preservative 7 completed Not Available [facility] 05/11/2022 18:23:07 influenza, unspecified formulation 8 completed Not Available [facility] 05/11/2022 18:23:07 Influenza, split virus, quadrivalent, preservative 9 completed Not Available [facility] 05/11/2022 18:23:07 Influenza, split virus, quadrivalent, preservative 0 completed Not Available [facility] 05/11/2022 18:23:07 SARS-COV-2 (COVID-19) vaccine, UNSPECIFIED 1 completed Lissa fox [facility] 02/07/2024 14:52:43 Past Encounters Encounter ID Performer Location Encounter Start Date Encounter Closed Date Diagnosis/Indication Diagnosis SNOMED-CT Code Diagnosis ICD10 Code Diagnosis IMO Codes Diagnosis Note [id number] NIRMALA TAYLOR MD NEUROLOGY [facility] [address] [place] [address] 04/17/2017 10:47:46 04/17/2017 12:09:40 Multiple sclerosis 56326184 G35 Lack of energy 259238455 R53.83 Long-term drug therapy 145663365 Z79.141 [id number] NIRMALA TAYLOR MD NEUROLOGY [facility] [address] [place] [address] 10/23/2017 08:55:22 10/23/2017 09:38:03 Multiple sclerosis 91181723 G35 Long-term drug therapy 432419275 Z79.899 Coronary atherosclerosis 615405499 I25.10 Stented co ronary artery 496444923 Z95.5 Intentiona l weight loss 782793785 R63.8 Ex-smoker 0061793 Z87.89 1 Foot pain 48095451 M79.6 72 M79.499 [id number] NIRMALA TAYLOR MD NEUROLOGY [facility] [address] [place] [address] 04/23/2018 08:59:17 04/23/2018 09:48:23 Multiple sclerosis 71283340 G35 Long-term drug therapy 645296259 Z79.899 Fatigue 88847549 R53.83 Anterior epistaxis 41797 4002 R04.0 [id number] RUBINA COVARRUBIAS MD [place] [facility] [address] [place] [address] 05/07/2018 09:17:47 05/07/2018 13:51:30 Anterior epistaxis 352506903 R04.0 [id number] NIRMALA TAYLOR MD NEUROLOGY [facility] [address] [place] [address] 05/14/2018 08:19:45 05/14/2018 09:15:00 Multiple sclerosis 28059681 G35 Lack of energy 504886308 R53.83 Vitamin B deficiency 479 12874 E53.9 Long-term drug therapy 927447404 Z79.899 Chronic fa tigue syndrome 14362817 R53.82 Vitamin D deficiency 347 97112 E55.9 [id number] RUBINA COVARRUBIAS MD [place] [facility] [address] [place] [address] 06/21/2018 08:09:55 06/21/2018 09:28:03 Anterior epistaxis 321337384 R04.0 Noise-marie ana hearing loss 21748555 H83.3X9 Asymmetric al sensorineural hearing loss 882161251 H90.5 [id number] YASHIRA LYNN [place] [facility] [address] [place] [address] 06/21/2018 08:57:34 06/21/2018 10:04:42 Dysfunction of eustachian tube 02161288 H69.92 Sensorineu ral hearing loss of bilateral ears 701051946 H90.3 L>R Tinnitus of left ear 917 1902422 106 H93.12 [id number] YASHIRA LYNN ENT [address] [place] [address] 07/09/2018 09:07:13 07/09/2018 09:36:37 [id number] NIRMALA TAYLOR MD [facility]UROLOG[facility] [address] [place] [address] 07/16/2018 08:11:47 07/16/2018 08:56:46 Multiple sclerosis 12783182 G35 Chronic fa tigue syndrome 21576750 R53.82 Long-term drug therapy 129209580 Z79.899 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 200828595 H54.60 Vitamin D deficiency 347 18842 E55.9 [id number] NIRMALA TAYLOR MD [facility]UROLOGY [facility] [address] [place] [address] 09/10/2018 08:13:41 09/10/2018 09:24:19 Multiple sclerosis 13559254 G35 Long-term drug therapy 772248547 Z79.899 Vitamin D deficiency 347 46704 E55.9 Lack of energy 248407217 R53.83 [id number] NIRMALA TAYLOR MD NEUROLOGY [facility] [address] [place] [address] 1 05/27/2019 08:25:41 05/27/2019 09:33:52 Multiple sclerosis 94834011 G35 Lack of energy 487693431 R53.83 Vitamin B deficiency 479 60116 E53.9 [id number] NIRMALA TAYLOR MD NEUROLOGY [facility] [address] [place] [address] 1 12/24/2019 14:14:25 12/24/2019 15:19:31 Multiple sclerosis 19782436 G35 Lack of energy 312221600 R53.83 Vitamin B deficiency 479 36382 E53.9 [id number] MD [facility] [address],[place] [address] 01/24/2020 13:52:33 01/24/2020 14:56:48 Neurogenic dysfunction of urinary bladder 223806880 N31.9 continue generic Vesicare 10 mg Benign pro static hyperplasia with outflow obstruction 023710463 N40.1 continue tamsulosin follow-up 1 year [id number] NIRMALA TAYLOR MD NEUROLOGY [facility] [address] [place] [address] 1 06/08/2020 07:51:56 06/08/2020 09:01:04 Multiple sclerosis 99002197 G35 Lack of energy 228516979 R53.83 Vitamin B deficiency 479 90457 E53.9 [id number] MD [facility] [address],[place] [address] 07/29/2020 13:49:39 07/29/2020 14:36:58 Groin mass 736079398 R19.00 after discussion we have started actually with a CT scan and try to determine where this is a hernia or additional masseffect . We will get an abdomen and pelvis CT scan without contrast. I'll check the results Urinary tr act infectious disease 57682893 N39.0 slight pyuria. We will send for culture and sensitivit y [id number] MD [facility] [address],[place] [place] [address] 07/31/2020 14:32:57 07/31/2020 15:22:07 Hemorrhage of kidney 26200754 N28.89 Left kidney hemorrhage Stable Increased frequency of urination 735811519 R35.0 He will continue on medical therapy for bladder instabilit y secondary to MS. Left inguinal hernia 236 766220 K40.90 We will refer him for further evaluation . [id number] MELINA SPRAGUE MD [facility] [address] [address] 11/02/2020 10:29:49 11/02/2020 11:08:56 Blood in urine 21029457 R31.9 Hemorrhage of kidney 955 26948 N28.89 Left kidney hemorrhage Stable Neurogenic urinary bladder 321315591 N31.9 Benign pro static hyperplasia with outflow obstruction 784352021 N40.1 continue tamsulosin follow-up 1 year [id number] NIRMALA TAYLOR MD NEUROLOGY [facility] [address] [place] [address] 12/07/2020 07:53:13 12/07/2020 08:20:18 Multiple sclerosis 54461551 G35 Lack of energy 967507781 R53.83 Vitamin B deficiency 479 27152 E53.9 Long-term current use of drug therapy 257875316 Z79.899 Vitamin D deficiency 347 80725 E55.9 Chronic fa tigue syndrome 52141698 R53.82 [id number] MD [facility] [address] [address] 05/31/2021 11:12:40 05/31/2021 12:21:58 Benign prostatic hyperplasia with outflow obstruction 914329660 N40.1 continue tamsulosin twice a day follow-up 6 months with PSA and prostate exam and then moving anteriorly follow Neurogenic dysfunction of urinary bladder 310165559 N31.9 continue generic Vesicare 10 mg [id number] NIRMALA TAYLOR MD NEUROLOGY [facility] [address] [place] [address] 02/09/2022 07:59:44 02/09/2022 10:34:12 Multiple sclerosis 63678555 G35 High risk medication monitoring indicated 9959826836 2633167 Z76.89 [id number] MELINA SPRAGUE MD [facility] [address] [facility] 0 02/09/2022 13:25:17 02/15/2022 16:37:18 Neurogenic dysfunction of urinary bladder 120558459 N31.9 continue generic Vesicare 10 mg Benign pro static hyperplasia with outflow obstruction 189179303 N40.1 continue tamsulosin twice a day follow-up 1 year with PSA [id number] NIRMALA TAYLOR MD NEUROLOGY [facility] [address] [place] [address] 05/09/2022 08:52:32 05/09/2022 10:38:02 Multiple sclerosis 32054150 G35 Chronic fa tigue syndrome 76100654 R53.82 [id number] NIRMALA TAYLOR MD NEUROLOGY [facility] [address] [place] [address] 07/12/2022 07:52:14 07/12/2022 09:26:58 Multiple sclerosis 92575821 G35 Lack of energy 737552884 R53.83 Chronic fa tigue syndrome 81759821 R53.82 [id number] NIRMALA TAYLOR MD NEUROLOGY CL[facility] [address] [place] [address] 01/16/2023 07:48:02 01/17/2023 04:32:12 Multiple sclerosis 98086082 G35 Long-term current use of drug therapy 731053962 Z79.899 [id number] NIRMALA TAYLOR MD NEUROLOGY [facility] [address] [place] [address] 07/24/2023 08:03:15 07/25/2023 04:18:46 Multiple sclerosis 11624203 G35 Long-term current use of drug therapy 806174228 Z79.899 [id number] NIRMALA TAYLOR MD NEUROLOGY [facility] [address] [place] [address] 01/22/2024 08:10:38 01/23/2024 04:29:49 Multiple sclerosis 12551072 G35 Long-term current use of drug therapy 726074771 Z79.899 High risk medication monitoring indicated 8731325272 6040379 Z76.89 [id number] MELINA SPRAGUE MD [facility] [address] [place] [address] 02/07/2024 14:04:29 02/07/2024 15:26:45 Neurogenic dysfunction of urinary bladder 346725158 N31.9 continue generic Vesicare 10 mg Lower urin kadie tract symptoms due to benign prostatic hypertrophy 7668712322 9101 N40.1 Follow-up 1 year with PSA [id number] NIRMALA TAYLOR MD NEUROLOGY [facility] [address] [place] [address] 05/29/2024 10:50:59 06/03/2024 14:57:36 Multiple sclerosis 02928342 G35 Chronic fa tigue syndrome 10769591 R53.82 Long-term current use of drug therapy 455227062 Z79.899 High risk medication monitoring indicated 4426816372 1840660 Z76.89 Lack of energy 055396317 R53.83 [id number] JUAN DE DO NEUROLOGY [address] [place] [address] 12/18/2024 07:53:56 12/18/2024 08:57:15 Multiple sclerosis 47510702 G35 Chronic condition that has been clinically stable. He refuses any neuroimagi ng due to severe claustroph obia. His labs are up to date.He will continue the dimethyl fumurate. He does not need refills today. Chronic fa tigue syndrome 94525143 R53.82 He struggles with chronic fatigue. He has been on modafinil. He has cut the dose back to 200mg daily. He feels his struggle with fatigue is not well controlled but due to his heart disease he has been advised not to use any higher doses.He does have sleep apnea. He could not tolerate the CPAP so he had a mouth guard made which he uses faithfully . Long-term current use of drug therapy 372410870 Z79.899 Health Concerns Section Related Observation LastModified by Organization Detai ls LastModified Time None Recorded Concern Status LastModified by Organization Details LastModified Time None Recorded Advance Directives Directive None Recorded Payers Insurance Date Sequence Insurance Name Policy Number Policy Steel Covered Member ID Steel Member ID Guarantor Name 04/18/2025 1 [facility] ([facility] [id number] Nirmala Tomlinson [id number] Nirmala Hackett Bushra Notes Date Note Type Note Provider Name and Address Organization Details Recorded Time 07/24/2023 text/html ROS as noted in the HPI Recheck for Multiple Aplnhiulg11 year old man. Multiple SclerosisOnset at approximately [...] total- 76 CMP:Glucose -105Creatinine- 0.77UN/Creatinine Ratio-16Sodium -141Potassium- 3.1Qdwwdivx9 107Carbon Dioxide -21Alkaline Dkysghyffti-36ULM-33 [id number] CBC:WBC-5.3RBC- 5.05Hemoglobin -15.4Hematocrit-45.2 [id number] [facility]- 134Lymphocyte, absolute- 1.2% lymphocytes-21.9Mono cyte, absolute- 0.2%monocytes-12.5 Current Medications:Dimethyl Fumurate 240 mgModafinil 200 mg NIRMALA TAYLOR MD [address] [place] [address], [phone], [facility] 07/24/2023 13:03:21 01/22/2024 text/html ROS as noted in the HPI Recheck for Multiple Slxysuedg49 year old man, 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 Multiple SclerosisOnset at approximately age 39. Disease controlled by dimethyl fumarate. Free of exacerbations. Recent Blood Test Results (01/15/2024) CMP:Glucose -87Creatinine- 0.70BUN-14Sodium -166OTY-34YGO-67MRL- 114 CBC:WBC-5.3Hemoglobi n -16Hematocrit-48.5[place]- 168Lymphocyte, absolute- 1.3 Vitamin D25-oh, total- 76 (01/16/2023) Current Medications:Dimethyl Fumurate 240 mg NIRMALA TAYLOR MD [address] [place] [address], [phone], [facility] 01/22/2024 10:08:43 02/07/2024 text/html Patient is here in follow-up last seen 18 months ago. He continues on medical therapy for neurogenic bladder for MAS. He continues to do well. He also takes tamsulosin twice daily. He typically has nocturia x 2-3 satisfied. PSA today was 0.48. 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 Multiple SclerosisOnset at approximately age 39. He is doing well No exacerbation He has chronic fatigue and is very concerned that modafinil control symptoms He is very concerned that a warning letter from [employer] described increased risk for ischemic heart disease [...] controlled by dimethyl fumarate. NIRMALA TAYLOR MD [address] [place] [address], [phone], [facility] 05/30/2024 08:10:33 12/18/2024 text/html ROS as noted in the HPI 64 y/o right handed male here for neurologic follow up regarding MS. This is my first time seeing him. He was diagnosed with MS in 1998.His initial symptoms were left optic neuritis. He did undergo a spinal tap and MRI's which confirmed the diagnosis of MS.He was started on copaxone and stayed on this for many years. He has side effects including chest pain from the medication. He suffered a heart attack and at that point he was switched to Tecifdera. He is currently taking dimethyl fumurate. He does get hot flashes with the medication but otherwise he has done well with the medication.He suffers with fatigue and frequent leg cramps.He is also prescribed modafinil for chronic fatigue. Labs 09/27/2024:WBC: 5.8Lymph: 1.3AST 19ALT 27Vit D: 57 No MRI imaging results on his chart.He has not had any imaging since he was first diagnosed. He has refused imaging. He is claustrophobic and does not want to try a MRI. He feels he is doing quite well from a MS standpoint. 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 He does feel this works well for him. 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 Multiple SclerosisOnset at approximately age 39. He is doing well No exacerbation He has chronic fatigue and is very concerned that modafinil control symptoms He is very concerned that a warning letter from [employer] described increased risk for ischemic heart disease [...] health issue Disease controlled by dimethyl fumarate. JUAN DE, DO [address] [place], [address], [facility] 12/18/2024 09:01:32
--- OUTSIDE RECORDS SUMMARY | 2025-04-18 10:50 | XMS_ITS | Encounter Summary ---
Author Organization [employer] ([place], [place], [place], [place]) Address [address] [place] [address] Care Team Providers Care Bounty Trapper Name Role Phone Unavailable Primary Care Provider Unavailabl e Encounter Details Date Type Department Care Team (Late st Contact Info) Description 09/08/2020 Transcribed Document [facility] Family Medicine [address] [place] [address] ProviderXimena MD [address] [place] [address] Social History Tobacco Use Types Packs/Day Years Used Date Smoking Tobacco: Never Assessed Sex and Gender Information Value Date Recorded Sex Assigned at Not on file Legal Sex Male 7:16 PM CDT Gender Identity Not on file Sexual Orientation Not on file documented as of this encounter Miscellaneous Notes * Cerner Conversion Note - Ximena ProviderMD - 09/08/2020 12:16 PM CDT [facility] Main OR PostOp Summary Primary Physician: VIRGEN LEIVA MD-SUR Finalized Date/Time: 09/08/20 15:57:46 Pt. Name: NIRMALA WIGGINS D.O.B./Sex: 1960 Male Med Rec #: [id number] Physician: VIRGEN LEIVA MD-SUR Financial #: [id number] Pt. Type: O Room/Bed: Admit/Disch: 09/08/20 08:09:00 - Institution: [facility] Main OR PostOp Case Times Entry 1 [...]
--- OUTSIDE RECORDS SUMMARY | 2025-04-18 10:50 | XMS_ITS | Encounter Summary ---
Author Organization [employer] ([place], [place], [place], [place]) Address [address] [place] [address] Care Team Providers Care Public Health Technician Name Role Phone Unavailable Primary Care Provider Unavailabl e Encounter Details Date Type Department Care Team (Late st Contact Info) Description 09/08/2020 Transcribed Document [facility] Family Medicine [facility] [place] [address] ProviderXimena MD [address] [place] [address] Social History Tobacco Use Types [...] and water are not available, use hand cupboard builder. ? Change your dressing as told by [...] allowed to take sponge baths. ??? Take ibcd-rjf-kuxiglr and prescription medicines only as told by your health care provider. ??? To prevent or treat constipation while you are taking prescription pain medicine, your health care provider may recommend that you: ? Drink enough fluid to keep your urine pale yellow. ? Take imge-pdl-wfxiwtp or prescription medicines. ? Eat foods that [...] 09/21/2017 Document Revised: 11/20/2019 Document Reviewed: 09/21/2017 [employer] Patient Education ? 2020 [employer] documented in this encounter Plan of Treatment Not on file documented as of this encounter Visit Diagnoses Not on filedocumented in this encounter
== END 2025-04-17 23:59 ==
LOC: LAB.DROPOF 04-18 10:45
PROVIDERS: PCP Internal Medicine; Visit Provider Internal Medicine
DX: I25.10 Atherosclerotic heart disease of native coronary artery without angina pectoris (principal); I10 Essential (primary) hypertension; E78.5 Hyperlipidemia, unspecified; G35.D Multiple sclerosis, unspecified; Q60.0 Renal agenesis, unilateral; Z12.5 Encounter for screening for malignant neoplasm of prostate
CPT/HCPCS: 80053; 80061; 85025; G0103